=== PATIENT | female | born 1935 | race Caucasian/White ===

== ENCOUNTER 2020-02-29 18:56 | Inpatient (IN) | payer MEDICARE ==
[~2020-02-29] VITALS: Ht 160 cm; Wt 62.7 kg
[2020-02-29] MEDS ORDERED: MORPHINE 4 MG/ML 1ML VIAL/SYRINGE (J2270) IV ONE ×2 (19:30→20:45)
[2020-02-29] MEDS ORDERED: ONDANSETRON 4MG/2ML VIAL IV ONE ×2 (19:30→22:15)
[2020-02-29 19:39] LABS: BASO % 0.2 % (0.0-1.0); HEMOGLOBIN 15.3 g/dl (12.0-15.5); LYMPH # 0.8 10^3/uL (1.5-5.0); LYMPH % 5.4 % (24.0-44.0); MEAN CORPUSCULAR HEMOGLOBIN 29.7 pg (27.0-33.0); MEAN CORPUSCULAR HGB CONC 33.3 g/dl (32.0-36.5); MEAN CORPUSCULAR VOLUME 89.1 fl (80.0-96.0); MONO % 6.6 % (0.0-5.0); NEUTROPHILS # 12.8 10^3/uL (1.5-8.5); NEUTROPHILS % 87.5 % (36.0-66.0); PLATELET COUNT, AUTOMATED 419 10^3/uL (150-450); RED BLOOD COUNT 5.16 10^6/uL (4.00-5.40); WHITE BLOOD COUNT 14.7 10^3/uL (4.0-10.0)
[2020-02-29] MEDS ORDERED: LISI10TA4 PO (19:42)
[2020-02-29] MEDS ORDERED: ATOR1TAB19 PO (19:42)
[2020-02-29] MEDS: NS 1,000 ML IV SCH ×2 (19:48→23:22)
[2020-02-29] MEDS: GASTROGRAFIN SOLUTION 30ML PO SCH ×2 (20:00→20:31)
[2020-02-29 20:06] LABS: ALT/SGPT 22 U/L (12-78); BILIRUBIN,DIRECT 0.2 MG/DL (0.0-0.2); BILIRUBIN,TOTAL 0.6 MG/DL (0.2-1.0); BLOOD UREA NITROGEN 31 MG/DL (7-18); CALCIUM LEVEL 9.5 MG/DL (8.8-10.2); CARBON DIOXIDE LEVEL 27 MEQ/L (21-32); CHLORIDE LEVEL 99 MEQ/L (98-107); CREATININE FOR GFR 0.93 MG/DL (0.55-1.30); GLOMERULAR FILTRATION RATE > 60.0 (>32); GLUCOSE, FASTING 209 MG/DL (70-100); LIPASE 60 U/L (73-393); POTASSIUM SERUM 4.1 MEQ/L (3.5-5.1); SODIUM LEVEL 138 MEQ/L (136-145); TOTAL PROTEIN 7.6 GM/DL (6.4-8.2)
[2020-02-29] MEDS ORDERED: ISOVUE-370 76% 100ML VIAL As Ordered ONE (21:25)
--- NOTE | 2020-02-29 21:55 | REPVR ---
PROCEDURE INFORMATION: Exam: CT Abdomen And Pelvis With Contrast Exam date and time: 02/29/2020 9:28 PM Age: 84 years old Clinical indication: Abdominal pain; Additional info: Gen abd pain, vomiting TECHNIQUE: Imaging protocol: Computed tomography of the abdomen and pelvis with intravenous contrast. Radiation optimization: All CT scans at this facility use at least one of these dose optimization techniques: automated exposure control; mA and/or kV adjustment per patient size (includes targeted exams where dose is matched to clinical indication); or iterative reconstruction. Contrast material: ISO 370; Contrast volume: 100 ml; Contrast route: IV; COMPARISON: No relevant prior studies available. FINDINGS: Lungs: Bronchiectasis is present at the anterior right lung base. No evidence of pneumonia. Noncalcified 3 mm right lower lobe lung nodule on axial image 15. Atelectasis at the left lung base. Liver: Liver appears normal with no focal abnormality. Gallbladder and bile ducts: Gallbladder is present and shows no evidence of gallstone. Pancreas: Complex lobular solid mass in the left upper quadrant which may be associated with the pancreatic tail. This measures 12 x 9 x 12 cm and contains punctate calcifications. It displaces the stomach anteriorly but does not appear to arise from the stomach. Spleen: Spleen appears homogeneous without focal mass. Adrenals: Adrenal glands are normal in appearance. Kidneys and ureters: Kidneys appear normal, with no stone, solid mass or hydronephrosis. Stomach and bowel: Dilated right lower quadrant small bowel loops are present measuring up to 3.5 cm and there is circumferential mural edema involving the distal small bowel in the right mid abdomen. No identifiable bowel mass. Small volume of adjacent fluid. No evidence of acute diverticulitis. Appendix: Appendix is not seen. No RLQ inflammation to suggest appendicitis. Intraperitoneal space: No free air. Vasculature: . No abdominal aortic aneurysm. Bladder: Urinary bladder appears normal. Bones/joints: Subacute right obturator ring fractures and multilevel lumbar spine degenerative changes are present. No lytic or blastic osseous lesion. IMPRESSION: 1. Large left upper quadrant complex solid mass measuring 12 x 9 by 12 cm. This could be a mesenteric mass or could arise from the pancreatic tail. Abdominal and pelvic free fluid could be malignant ascites. 2. Inflammatory or infectious process involving right lower quadrant small bowel with low-grade partial obstruction. No obstructing mass. 3. 3 mm nodule, lateral right lung base. Fleischner society recommendations for followup and management of nodules smaller than 8 mm detected incidentally on screening CT: Less than or equal to 4 mm: Low risk patients- no followup needed. High risk patients- followup in 12 months. If no change, no further imaging needed. Electronically signed by: Tyrone Brewer On 02/29/2020 21:55:21 PM
[2020-02-29] MEDS ORDERED: ATOR1TAB21 PO (23:57)
[2020-02-29] MEDS ORDERED: OXYC-517 PO (23:57)
[2020-02-29] MEDS ORDERED: NITR50CA34 PO (23:57)
[2020-02-29] MEDS ORDERED: LISI-538 PO (23:57)
[2020-02-29] MEDS ORDERED: JANU50TA8 PO (23:57)
[2020-02-29] MEDS ORDERED: TORS10TA3 PO (23:57)
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
[2020-03-01] MEDS ORDERED: GLUCOSE 4GM CHEW TABLET PO PRN (01:00)
[2020-03-01] MEDS ORDERED: DEXTROSE 50% 50 ML SYRINGE IV PRN (01:00)
[2020-03-01] MEDS ORDERED: GLUCAGON INJ 1MG VIAL SC PRN (01:00)
[2020-03-01] MEDS: HumaLOG INSULIN (NovoLOG) PER UNIT SC SCH ×4 (01:10→17:42)
[2020-03-01] MEDS: oxyCODONE 5MG TAB PO PRN (02:02)
[2020-03-01 02:30] VITALS: BP 164/99
[2020-03-01 06:00] VITALS: BP 160/97
[2020-03-01 06:01] LABS: HEMATOCRIT 48.3 % (36.0-47.0); MEAN CORPUSCULAR HGB CONC 33.1 g/dl (32.0-36.5); MEAN CORPUSCULAR VOLUME 90.6 fl (80.0-96.0); PLATELET COUNT, AUTOMATED 401 10^3/uL (150-450); RED BLOOD COUNT 5.33 10^6/uL (4.00-5.40); WHITE BLOOD COUNT 18.8 10^3/uL (4.0-10.0)
[2020-03-01 06:30] LABS: BLOOD UREA NITROGEN 28 MG/DL (7-18); CALCIUM LEVEL 8.1 MG/DL (8.8-10.2); CARBON DIOXIDE LEVEL 22 MEQ/L (21-32); CHLORIDE LEVEL 106 MEQ/L (98-107); CREATININE FOR GFR 0.71 MG/DL (0.55-1.30); GLOMERULAR FILTRATION RATE > 60.0 (>32); GLUCOSE, FASTING 155 MG/DL (70-100); POTASSIUM SERUM 4.2 MEQ/L (3.5-5.1); SODIUM LEVEL 140 MEQ/L (136-145)
[2020-03-01] MEDS ORDERED: MORPHINE 10 MG/ML 1ML VIAL (J2270) IV PRN (06:30)
[2020-03-01] MEDS: ONDANSETRON 4MG/2ML VIAL IV PRN ×2 (06:43→17:48)
[2020-03-01] MEDS: MORPHINE 2 MG/ML 1ML VIAL (J2270) IV PRN ×4 (06:44→21:50)
[2020-03-01] MEDS ORDERED: ATORVASTATIN 20 MG TAB PO SCH (09:00)
[2020-03-01 09:36] VITALS: BP 155/96
[2020-03-01] MEDS: lisinopriL 20 MG TAB PO SCH (09:38)
[2020-03-01] MEDS: ENOXAPARIN 40MG/0.4ML SYRINGE (J1650 PER 10MG) SC SCH (10:55)
[2020-03-01] MEDS ORDERED: PROHANCE 279.3MG/ML 5ML VIAL As Ordered ONE (14:10)
[2020-03-01] MEDS ORDERED: CEPACOL LOZENGE PO PRN (16:30)
[2020-03-01] MEDS: NS 1,000 ML IV SCH ×2 (16:33→20:02)
[2020-03-01] MEDS: CHLORASEPTIC SPRAY MT PRN (17:52)
[2020-03-01] MEDS: CIPROFLOXACIN 400 MG in IV 1 EA IV SCH (20:02)
[2020-03-01] MEDS ORDERED: PILL CUTTER 1 EACH XX PRN (20:15)
[2020-03-01] MEDS: ATORVASTATIN 20 MG TAB PO SCH (21:00)
[2020-03-01] MEDS: SIMETHICONE 80 MG CHEW TAB PO SCH (21:44)
[2020-03-01] MEDS: metroNIDAZOLE 500 MG in IV 1 EA IV SCH (21:45)
[2020-03-02] VITALS (7 sets, daily range): BP systolic 112–120; BP diastolic 63–76
--- NOTE | 2020-03-02 00:31 | REP ---
MRI PANCREAS WITH AND WITHOUT CONTRAST: COMPARISON: CT 02/29/2020. Multiple sequences obtained in the axial and coronal planes prior to and following the intravenous administration of 10 mL ProHance. A large mass is seen in the body and tail of the pancreas. It measures approximately 11.5 x 11.7 x 12.3 cm. There were scattered small calcifications on the CT scan. There are small cystic areas diffusely throughout the mass as well as enhancing solid components. Borders are somewhat lobulated. It compresses the splenic vein. Splenic artery also appears compressed. In the region of the pancreatic head, the pancreatic duct is not dilated. No pancreatic head mass is seen. The visualized liver is unremarkable. There is no dilatation of the common bile duct. Spleen and adrenals are unremarkable. The kidneys are unremarkable. No periaortic adenopathy is seen. There is mild diffuse free fluid in the abdomen. There are thickened small bowel loops in the right mid and lower abdomen, as seen on the CT scan. IMPRESSION: Large cystic and solid mass in the body and tail of the pancreas. There are enhancing solid components. There are scattered tiny calcifications in the mass. Differential diagnosis would include carcinoma or possibly solid pseudopapillary tumor. Mild diffuse free fluid. Thickened small bowel loops right abdomen. Electronically Signed by Tong Alberts MD 03/02/2020 01:30 P
[2020-03-02] MEDS: NS 1,000 ML IV SCH ×3 (05:49→16:53)
[2020-03-02] MEDS: metroNIDAZOLE 500 MG in IV 1 EA IV SCH ×3 (05:49→22:10)
[2020-03-02] MEDS: HumaLOG INSULIN (NovoLOG) PER UNIT SC SCH ×4 (05:57→17:48)
[2020-03-02] MEDS: ONDANSETRON 4MG/2ML VIAL IV PRN ×3 (05:58→21:29)
[2020-03-02] MEDS: MORPHINE 2 MG/ML 1ML VIAL (J2270) IV PRN ×6 (05:58→23:31)
[2020-03-02 06:01] LABS: HEMATOCRIT 39.9 % (36.0-47.0); MEAN CORPUSCULAR HEMOGLOBIN 30.2 pg (27.0-33.0); MEAN CORPUSCULAR HGB CONC 33.3 g/dl (32.0-36.5); MEAN CORPUSCULAR VOLUME 90.7 fl (80.0-96.0); PLATELET COUNT, AUTOMATED 350 10^3/uL (150-450); WHITE BLOOD COUNT 13.9 10^3/uL (4.0-10.0)
[2020-03-02 06:08] LABS: HEMOGLOBIN 13.3 g/dl (12.0-15.5)
[2020-03-02 06:31] LABS: ALBUMIN 2.5 GM/DL (3.2-5.2); ALT/SGPT 12 U/L (12-78); BILIRUBIN,TOTAL 0.7 MG/DL (0.2-1.0); BLOOD UREA NITROGEN 38 MG/DL (7-18); CARBON DIOXIDE LEVEL 20 MEQ/L (21-32); CHLORIDE LEVEL 106 MEQ/L (98-107); CREATININE FOR GFR 0.69 MG/DL (0.55-1.30); GLOMERULAR FILTRATION RATE > 60.0 (>32); GLUCOSE, FASTING 152 MG/DL (70-100); MAGNESIUM LEVEL 1.5 MG/DL (1.8-2.4); POTASSIUM SERUM 4.2 MEQ/L (3.5-5.1); SODIUM LEVEL 136 MEQ/L (136-145); TOTAL PROTEIN 4.8 GM/DL (6.4-8.2)
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
--- NOTE | 2020-03-02 08:30 | REP ---
REASON: Recent nasogastric tube placement. There are no priors for comparison. A curvilinear radial density seen coursing the esophagus, the tip is beneath the diaphragmatic surface of the left lung in the stomach fundal region. The right CP angle is blunted with subtle right basilar opacities. The lung ferreira are otherwise clear. Left CP angle is sharp. The heart is not enlarged. The osseous structures are within normal limits. IMPRESSION: 1. Nasogastric tube as described above. 2. Mild right basilar opacities with a possible small right pleural effusion. Followup is recommended. Electronically Signed by Joseph Damian DO 03/02/2020 10:51 A
[2020-03-02] MEDS: SIMETHICONE 80 MG CHEW TAB PO SCH ×2 (08:55→11:56)
[2020-03-02] MEDS: CIPROFLOXACIN 400 MG in IV 1 EA IV SCH ×2 (08:55→20:22)
[2020-03-02] MEDS: oxyCODONE 5MG TAB PO PRN (08:56)
[2020-03-02] MEDS: lisinopriL 20 MG TAB PO SCH (08:59)
[2020-03-02] MEDS: ENOXAPARIN 40MG/0.4ML SYRINGE (J1650 PER 10MG) SC SCH ×2 (09:00→09:01)
--- NOTE | 2020-03-02 09:37 | REP ---
ABDOMINAL SERIES: Supine erect views of the abdomen demonstrate no free air. Moderately dilated small bowel loops are again seen. There are degenerative changes of the spine. An accompanying view of the chest demonstrates mild patchy atelectasis or infiltrate in each lung base. Nasogastric tube is seen with sideport in the stomach. Electronically Signed by Tong Alberts MD 03/07/2020 05:47 P
--- NOTE | 2020-03-02 11:18 | IPN ---
DATE: 03/02/2020 Patient overall has had a rough night and still had some crampy abdominal pain. Her white count has dropped a little bit this morning, but unfortunately she still distended and she is still having the crampy abdominal pain. Her x-ray does not look improved and a matter of fact, I do feel that there is a pinch point in the right lower quadrant. On her physical exam, she is more distended today. She is more uncomfortable and more tender to palpation, although it is not diffuse peritoneal signs but it is definitely more uncomfortable given her distension. IMPRESSION/PLAN: Patient has un-resolving small bowel obstruction. We will plan on operative intervention with a laparotomy with probable lysis of adhesions, possible small bowel resection. I have discussed multiple operative options with her for operative intervention today concerning this issue. The second issue was that we did receive some paperwork from [facility] concerning her last admission and specifically, when we review the size of the pancreatic abnormality it was 11 x 9 cm and thus, showing that this is indeed increasing in size but slowly over time. 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 However, we will get the hepatobiliary specialist involved in her care after the small bowel obstruction issue has been addressed.
[2020-03-02] MEDS ORDERED: GLUCAGON INJ 1MG VIAL As Ordered ONE (13:06)
[2020-03-02] MEDS ORDERED: dexameTHASONE 4 MG/ML 1ML VIAL (J1100 PER 1MG) As Ordered ONE (13:21)
[2020-03-02] MEDS ORDERED: ETOMIDATE INJ 20MG/10ML VIAL As Ordered ONE (13:21)
[2020-03-02] MEDS ORDERED: SUCCINYLCHOLINE 100 MG/5 ML SYRINGE (J0330) As Ordered ONE (13:21)
[2020-03-02] MEDS ORDERED: fentaNYL 250 MCG/5 ML INJECTION (J3010) As Ordered ONE (13:21)
[2020-03-02] MEDS ORDERED: LIDOCAINE 2% 100MG/5ML SDV (FOR ANES.) As Ordered ONE (13:21)
[2020-03-02] MEDS ORDERED: SUGAMMADEX SODIUM 500 MG/5 ML VIAL (BRIDION) As Ordered ONE ×2 (13:21→14:42)
[2020-03-02] MEDS ORDERED: MIDAZOLAM INJ 2MG/2ML VIAL (J2250 PER 1MG) As Ordered ONE (13:21)
[2020-03-02] MEDS ORDERED: ONDANSETRON 4MG/2ML VIAL As Ordered ONE (13:21)
[2020-03-02] MEDS ORDERED: propofoL 200 MG/20 ML VIAL As Ordered ONE (13:21)
[2020-03-02] MEDS ORDERED: BUPIVACAINE HCL 0.25% 10ML VIAL As Ordered ONE (13:56)
[2020-03-02] MEDS ORDERED: BUPIVACAINE LIPOSOME/PF 1.3% 20ML VIAL (13.3MG/ML)(EXPAREL)(C9290 PER1MG) As Ordered ONE (13:56)
[2020-03-02] MEDS ORDERED: MAG SULF 1GM/100ML (MAG RUN) 1 GM in IV 1 EA IV ONE (14:00)
[2020-03-02] MEDS ORDERED: ROCURONIUM BROMIDE 50 MG/5 ML VIAL As Ordered ONE ×2 (14:19→14:20)
[2020-03-02] MEDS ORDERED: ACETAMINOPHEN 1000MG 100ML IV BTL (OFIRMEV) (J0131 PER 10MG) As Ordered ONE (14:22)
[2020-03-02] MEDS ORDERED: HYDROmorphone HCL 2 MG/ML 1ML VIAL (J1170) As Ordered ONE (14:28)
[2020-03-02] MEDS ORDERED: KETOROLAC 60MG 2ML VIAL As Ordered ONE (14:54)
[2020-03-02] MEDS ORDERED: HYDROMORPHONE HCL 0.5 MG/ 0.5 ML SYRINGE (J1170 PER 1) As Ordered ONE (15:26)
[2020-03-02] MEDS ORDERED: ONDANSETRON 4MG/2ML VIAL IV PRN (15:30)
[2020-03-02] MEDS ORDERED: LR 1,000 ML IV SCH (15:30)
[2020-03-02] MEDS ORDERED: oxyCODONE 5MG TAB PO PRN (15:30)
[2020-03-02] MEDS: HYDROMORPHONE HCL 0.5 MG/ 0.5 ML SYRINGE (J1170 PER 1) IV PRN ×2 (15:31→15:36)
--- NOTE | 2020-03-02 15:31 | RO ---
DATE OF PROCEDURE: 03/01/2020 PREOPERATIVE DIAGNOSIS: Small bowel obstruction. POSTOPERATIVE DIAGNOSIS: Small bowel obstruction with internal hernia. PROCEDURE: Ileocolectomy. SURGEON: Jay Jay Martinez MD TORQUE TESTER: ANESTHESIA: General endotracheal anesthesia. ESTIMATED BLOOD LOSS (EBL): 50 mL. FLUIDS: Crystalloid. BRIEF PROCEDURE SUMMARY: The patient was brought to the operating room, was given general anesthesia. After adequate anesthesia and preoperative antibiotics were given the patient was prepped and draped in the usual sterile fashion. A midline incision inferior to the umbilicus was performed with a skin knife. Electrocautery was used cut through the skin and subcutaneous tissue down to the fascia and fascia was entered sharply. Peritoneum was entered and dilated. Small bowel was appreciated. I could feel where the bowel was then quite hemorrhagic looking at least venous congested and at the base of this was an adhesion that was strung across the small bowel and the terminal ileum right at the level of the ileocecal valve. Once I cut this adhesion the bowel did start to parts picker , but still was quite venous congested. I did not feel that this was viable or at least I had concerns with its appearance that there was at least mucosal ischemia. Thus, the small bowel was resected about a foot of the distal small bowel and I transected right at the level of the cecum where the ileocecal valve was with IRMA staplers and the mesentery was taken with [place] vascular load. Opening up a small enterotomy in both sites an anastomosis was created with a [id number]. The mucosa was mostly stool stained on the cecal side and on the right side there was still some darker fluid. However, after the anastomosis there was definite mucosal ischemia and when I suctioned the turbid fluid there was some significant oozing from this area of mucosal re-profusion. I felt that this was at a higher risk of either having potential stricture, stenosis or bleeding post-op. Thus, I re-resected that small bowel back approximately another 3-4 inches and came back to normal but edematous bowel. The cecum then was resected and a [id number] anastomosis with the small bowel to the ascending colon was performed with a IRMA stapler. The enterotomy site was resected using an [place] 60 green load. The bowel mucosa looked nice and viable in this area. The abdomen was copiously irrigated until clear. The midline was closed with a running looped #0 PDS and nikkie were used to approximate the skin. Exparel was injected bilaterally on the rectus muscle area and fascia, and a dry sterile dressing was applied. The patient was awakened, extubated, brought to recovery room awake, alert and hemodynamic stable. Sponge and needle counts correct times two.
[2020-03-02] MEDS ORDERED: fentaNYL 100 MCG/2 ML INJECTION (J3010) As Ordered ONE (15:43)
[2020-03-02] MEDS: fentaNYL 100 MCG/2 ML INJECTION (J3010) IV PRN ×2 (15:47→16:10)
--- NOTE | 2020-03-02 16:52 | IPN ---
DATE: 03/02/2020 Patient continues to complain of increasing abdominal distention, intractable nausea despite antiemetic and nasogastric tube. Patient is passing minimal amount of gas. Overnight patient complained of increasing pain. PHYSICAL EXAMINATION: Temperature 98.4, pulse 99, respiratory rate 14, blood pressure 120/71, 97% on room air. GENERAL: Awake, alert, oriented to person and place. Speaking appropriate. Nasogastric tube intact. No jugular venous distention (JVD) or thyromegaly. LUNGS: Clear to auscultation. HEART: S1, S2, sinus rhythm. ABDOMEN: Much more distended, tender, and with hypoactive bowel sounds. Nasogastric tube in place. EXTREMITIES: No cyanosis or clubbing. LABORATORY DATA: White count 13.9, hemoglobin 13, hematocrit 13, and platelet count 350. Sodium 136, potassium 4.2, chloride 106, bicarbonate 20, BUN 38, creatinine 0.69, glucose 152. ASSESSMENT AND PLAN: This is an 84-year-old female admitted on 03/01/2020 with complaints of abdominal pain, distention, nausea, and vomiting, felt to have partial small-bowel obstruction. Patient had a history of a large abdominal mass, previously biopsied, and was thought to be benign. CURRENT ISSUES: 1. Small-bowel obstruction, persistent. Patient is still passing flatus but no responding to conservative management with nothing by mouth status, intravenous (IV) fluids, and nasogastric tube suctioning. General surgeon, Dr. Martinez, will bring her to the operating room (OR) for exploratory laparotomy and lysis of adhesions. Patient is currently on Cipro and Flagyl, which was started yesterday by general surgery. 2. 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 Patient will need a hepatobiliary specialist, according to recommendations from her general surgeon, Dr. Martinez, after small-bowel obstruction has been addressed. 3. Type 2 diabetes, currently nothing by mouth status. On IV fluids, hypoglycemic protocol, and fingersticks every 6 hours. 4. Hypertension. Blood pressure is normal, 119-120. Currently on lisinopril 20 daily. Will need to monitor postoperatively. 5. Hypomagnesemia, repleted. MTDD
[2020-03-02] MEDS: ATORVASTATIN 20 MG TAB PO SCH (20:22)
[2020-03-02] MEDS: ALVIMOPAN 12 MG CAPSULE (ENTEREG) PO SCH (20:22)
[2020-03-03 02:08] VITALS: BP 116/62
[2020-03-03] MEDS: NS 1,000 ML IV SCH ×4 (02:52→17:35)
[2020-03-03] MEDS: MORPHINE 2 MG/ML 1ML VIAL (J2270) IV PRN ×5 (02:53→12:41)
[2020-03-03 05:15] VITALS: BP 123/66
[2020-03-03] MEDS: metroNIDAZOLE 500 MG in IV 1 EA IV SCH ×3 (05:31→22:33)
[2020-03-03] MEDS: HumaLOG INSULIN (NovoLOG) PER UNIT SC SCH ×4 (05:32→17:27)
[2020-03-03 08:06] LABS: HEMATOCRIT 33.2 % (36.0-47.0); MEAN CORPUSCULAR HEMOGLOBIN 30.5 pg (27.0-33.0); MEAN CORPUSCULAR HGB CONC 33.7 g/dl (32.0-36.5); MEAN CORPUSCULAR VOLUME 90.5 fl (80.0-96.0); PLATELET COUNT, AUTOMATED 245 10^3/uL (150-450); RED BLOOD COUNT 3.67 10^6/uL (4.00-5.40); WHITE BLOOD COUNT 9.1 10^3/uL (4.0-10.0)
[2020-03-03 08:22] LABS: HEMOGLOBIN 11.2 g/dl (12.0-15.5)
[2020-03-03] MEDS: CIPROFLOXACIN 400 MG in IV 1 EA IV SCH ×2 (08:26→20:05)
[2020-03-03] MEDS: lisinopriL 20 MG TAB PO SCH (08:29)
[2020-03-03] MEDS: ALVIMOPAN 12 MG CAPSULE (ENTEREG) PO SCH ×2 (08:29→21:00)
[2020-03-03 08:32] LABS: BLOOD UREA NITROGEN 22 MG/DL (7-18); CALCIUM LEVEL 7.6 MG/DL (8.8-10.2); CARBON DIOXIDE LEVEL 22 MEQ/L (21-32); CHLORIDE LEVEL 111 MEQ/L (98-107); CREATININE FOR GFR 0.53 MG/DL (0.55-1.30); GLOMERULAR FILTRATION RATE > 60.0 (>32); GLUCOSE, FASTING 134 MG/DL (70-100); POTASSIUM SERUM 3.7 MEQ/L (3.5-5.1); SODIUM LEVEL 140 MEQ/L (136-145)
[2020-03-03] MEDS: CHLORASEPTIC SPRAY MT PRN ×3 (10:29→17:35)
[2020-03-03] MEDS ORDERED: ACETAMINOPHEN 325 MG/10.15 ML UDC NG PRN (11:30)
--- NOTE | 2020-03-03 11:51 | IPN ---
DATE: 03/03/2020 The patient is postop day #1 from a small ileocolectomy for bowel obstruction. The patient states that she is still uncomfortable with her incisions, but she is not having crampy abdominal pain that she was having previously. She does not feel as distended or full as she did previously. She had a little bit of nausea but not as severe as prior to operative intervention. Her nasogastric (NG) tube has been putting out less fluid and it is just clear. Her abdomen is soft, mildly tender xi-incisionally. No peritoneal signs are appreciated. Her white count is normal this morning at 9.1. IMPRESSION/PLAN: 1. Gastrointestinal (GI): The patient still has some mild dilatation of her abdomen and I anticipate that she has a mild ileus associated with her operative intervention as typical in this with a significant portion of a small bowel resection. Thus, I would recommend keeping her nothing by mouth until she has flatus or bowel movements, then she can have the NG tube removed and then progress her on to a clear liquid diet. 2. Pain control. I have encouraged the patient to use the pain medication more than she has been. She states that she is using it every 6-8 hours and she has it available for much more often than that. If she needs a patient controlled analgesia (TEAR DOWN WORKER) we can obviously order that for her, but encouraging her to use a little bit more, more often may be just be adequate for her. Otherwise, her urine output looks good. Her blood urea nitrogen (BUN) is coming down a little bit. We will continue with supportive care at this time.
[2020-03-03 14:00] VITALS: BP 134/71
--- NOTE | 2020-03-03 16:12 | ECGEPIP ---
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
[2020-03-03] MEDS: ONDANSETRON 4MG/2ML VIAL IV PRN (17:35)
--- NOTE | 2020-03-03 17:37 | IPN ---
DATE: 03/03/2020 Patient said that she woke up from sleep and was very disoriented today. Did not know where she was, which scared her. She complains of not feeling well. Nasogastric tube still in place with 200 mL through the drain. Patient underwent ileocolectomy on due to nonresolving small-bowel obstruction. Still with nikkie in place. Incision site appears clean, dry, without any drainage. Patient has complaint of about 10/10 pain at the moment, currently being given morphine. Per nursing, had already received 8 mg of intravenous morphine all day today. Patient remains afebrile without any chills. She feels nauseous but has not vomited. Nasogastric (NG) tube still in place. Temperature 98.3 pulse 99, respiratory rate 19, blood pressure 134/71, 95% on room air. GENERAL: Patient is not in any respiratory distress. No cyanosis. No clubbing. Nasogastric in place. Midline abdominal incision is clean with dressing. Peters catheter is dark in color, concentrated. LUNGS: Diminished with fine crackles. HEART: S1, S2, irregularly irregular. EXTREMITIES: No cyanosis or clubbing. LABORATORY DATA: White count 9.1, hemoglobin 11, hematocrit 33, platelet count 245. Sodium 140, potassium 3.7, chloride 111, bicarbonate 22, BUN 22, creatinine 0.53, glucose 134. IMAGING STUDY: Abdominal film March 02: Mild patchy atelectasis in the chest or infiltrate in each lung. Nasogastric tube with side port in the stomach. ASSESSMENT AND PLAN: This is an 84-year-old female, admitted on 03/01/2020 with complaints of abdominal pain, nausea, vomiting, and abdominal distention. CT abdomen showed partial small-bowel obstruction, evaluated by Dr. Martinez, and was started on intravenous (IV) Cipro and Flagyl with improvement in white count. Patient underwent ileocolectomy on 03/01/2020 but has not passed a bowel movement yet this morning. She is currently on alvimopan. Nasogastric tube remains in place due to persistent complaints of nausea. CURRENT ISSUES: 1. Small-bowel obstruction status post ileocolectomy. Postoperative management per general surgery. Currently on IV Cipro with normal white count. Still requiring NG tube, since the patient has not had any bowel movement yet. IV morphine has been given with subsequent acute delirium per patient. Zofran as needed for nausea. Still on intravenous fluids. 2. Type 2 diabetes, on hypoglycemic protocol, sliding scale every 6 hours. 3. Hypertension. Vital signs are stable with systolic pressure of 134. 4. new onset aflutter w rvr. not passing flatus. still w ng tube to lis. iv metoprolol q6hrs . echo. lovenox for now, but switch to eliquis renal dosing once oral intake is resumed. transfer to pcu. tele. ekg. MTDD
--- NOTE | 2020-03-03 18:31 | IPNPDOC ---
Date Seen The patient was seen on 03/03/20. Progress Note new onset aflutter w rvr: transfer to pcu tele for iv metoprolol. due to npo status, ng tube suctioning, unable to give po meds. VS, I&O, 24H, Fishbone Vital Signs/I&O Vital Signs Date Time Temp Pulse Resp B/P (MAP) Pulse Ox O2 Delivery O2 Flow Rate FiO2 03/03/20 14:00 98.3 99 19 134/71 (92) 95 Room Air 03/02/20 21:23 2.0 03/02/20 15:06 100 I&O- Last 24 Hours up to 6 AM 03/03/20 06:00 Intake Total 1900 ml Output Total 675 ml Balance 1225 ml Laboratory Data 24H LABS Laboratory Tests 2 03/02/20 19:38: Bedside Glucose (Misc Panel) 156H 03/02/20 23:54: Bedside Glucose (Misc Panel) 169H 03/03/20 05:19: Bedside Glucose (Misc Panel) 162H 03/03/20 07:52: Nucleated Red Blood Cells % (auto) 0.0, Anion Gap 7L, Glomerular Filtration Rate > 60.0, Calcium Level 7.6L 03/03/20 11:25: Bedside Glucose (Misc Panel) 143H 03/03/20 17:23: Bedside Glucose (Misc Panel) 118H CBC/BMP Laboratory Tests 03/03/20 07:52 JING MICHELLE MD Mar 03, 2020 18:31
[2020-03-03] MEDS ORDERED: ENOXAPARIN 40MG/0.4ML SYRINGE (J1650 PER 10MG) SC SCH (18:45)
[2020-03-03 19:19] VITALS: BP 148/73
[2020-03-03] MEDS ORDERED: ACETAMINOPHEN *IV* 650 MG in IV 1 EA IV ONE (20:00)
[2020-03-03] MEDS: METOPROLOL 5 MG/5 ML VIAL IV SCH (20:06)
[2020-03-03] MEDS: ENOXAPARIN 60MG/0.6ML SYRINGE (J1650 PER 10MG) SC SCH (21:49)
[2020-03-04] VITALS: BP 146/71
[2020-03-04] MEDS: METOPROLOL 5 MG/5 ML VIAL IV SCH (03:23)
[2020-03-04 04:00] VITALS: BP 156/71
[2020-03-04] MEDS: metroNIDAZOLE 500 MG in IV 1 EA IV SCH ×3 (04:06→21:00)
[2020-03-04] MEDS: HumaLOG INSULIN (NovoLOG) PER UNIT SC SCH ×4 (05:54→18:06)
[2020-03-04] MEDS: NS 1,000 ML IV SCH ×2 (06:37→07:34)
[2020-03-04] MEDS ORDERED: METOPROLOL 5 MG/5 ML VIAL IV PRN (07:30)
[2020-03-04] MEDS: ACETAMINOPHEN 325 MG/10.15 ML UDC GT PRN ×2 (07:33→18:07)
[2020-03-04 07:45] LABS: BASO % 0.1 % (0.0-1.0); HEMATOCRIT 38.9 % (36.0-47.0); HEMOGLOBIN 12.7 g/dl (12.0-15.5); LYMPH # 0.4 10^3/uL (1.5-5.0); MEAN CORPUSCULAR HEMOGLOBIN 29.7 pg (27.0-33.0); MEAN CORPUSCULAR HGB CONC 32.6 g/dl (32.0-36.5); MEAN CORPUSCULAR VOLUME 91.1 fl (80.0-96.0); MONO # 0.9 10^3/uL (0.0-0.8); MONO % 6.9 % (0.0-5.0); NEUTROPHILS # 11.4 10^3/uL (1.5-8.5); NEUTROPHILS % 89.3 % (36.0-66.0); PLATELET COUNT, AUTOMATED 290 10^3/uL (150-450); RED BLOOD COUNT 4.27 10^6/uL (4.00-5.40); WHITE BLOOD COUNT 12.8 10^3/uL (4.0-10.0)
[2020-03-04 08:00] VITALS: BP 164/78
[2020-03-04 08:20] LABS: ALBUMIN 1.9 GM/DL (3.2-5.2); ALT/SGPT 15 U/L (12-78); BILIRUBIN,TOTAL 0.4 MG/DL (0.2-1.0); BLOOD UREA NITROGEN 18 MG/DL (7-18); CALCIUM LEVEL 8.3 MG/DL (8.8-10.2); CARBON DIOXIDE LEVEL 20 MEQ/L (21-32); CHLORIDE LEVEL 110 MEQ/L (98-107); CHOLESTEROL LEVEL 87 MG/DL (<200); CK-MB VALUE MASS 2.3 NG/ML (<3.6); CPK CREATINE PHOSPHOKINASE 44 U/L (26-192); CREATININE FOR GFR 0.36 MG/DL (0.55-1.30); FREE THYROXINE INDEX 4.2 % (1.3-4.8); GLOMERULAR FILTRATION RATE > 60.0 (>32); GLUCOSE, FASTING 147 MG/DL (70-100); HDL CHOLESTEROL 50 MG/DL (>40); LDL CHOLESTEROL 28 MG/DL (<100); MAGNESIUM LEVEL 1.5 MG/DL (1.8-2.4); MB/CK RELATIVE INDEX 5.23 (< OR =4); NON-HDL-C 37 MG/DL; NT-PRO BNP 3587 PG/ML (<450); POTASSIUM SERUM 3.8 MEQ/L (3.5-5.1); SODIUM LEVEL 140 MEQ/L (136-145); T UPTAKE 40 % (30-39); THYROID STIMULATING HORMONE 0.238 uIU/ML (0.358-3.740); THYROXINE (T4) 10.4 UG/DL (4.5-12.0); TOTAL PROTEIN 4.3 GM/DL (6.4-8.2); TRIGLYCERIDES LEVEL 46 MG/DL (<150); TROPONIN I < 0.02 NG/ML (< 0.10)
[2020-03-04] MEDS: lisinopriL 20 MG TAB PO SCH (08:40)
[2020-03-04] MEDS: ALVIMOPAN 12 MG CAPSULE (ENTEREG) PO SCH ×2 (08:41→21:00)
[2020-03-04] MEDS: CIPROFLOXACIN 400 MG in IV 1 EA IV SCH ×2 (08:41→20:58)
[2020-03-04] MEDS: atenoloL 25 MG TAB PO SCH (08:41)
[2020-03-04] MEDS: ENOXAPARIN 60MG/0.6ML SYRINGE (J1650 PER 10MG) SC SCH ×2 (08:43→20:59)
[2020-03-04] MEDS: ONDANSETRON 4MG/2ML VIAL IV PRN (09:36)
[2020-03-04] MEDS: FUROSEMIDE 40MG/4ML VIAL (J1940) IV SCH ×2 (10:10→18:06)
[2020-03-04] MEDS ORDERED: SLF 3 ML SYR IV PRN (10:30)
--- NOTE | 2020-03-04 11:34 | IPN ---
DATE OF SERVICE: 03/04/2020 The patient remains with sinus tachycardia and premature atrial complexes overnight. She had been transferred to rule out atrial fibrillation and atrial flutter. Rate on 5 fagan was 160. The patient complains of persistent nausea, abdominal pain this morning, rated at 6/10, diffusely across the abdomen. She has not passed any flatus or had any bowel movement. Nasogastric tube still in place with drainage of 200 mL overnight. She complains of some shortness of breath, cough productive of white sputum. Chest x-ray has been still pending. Vital signs: Temperature 98.2, pulse 83, respiratory rate 16, blood pressure 164/78, 94% on room air. Generally, the patient distressed, feeling nauseous at bedside. No jugular venous distention (JVD), thyromegaly. Face is symmetric. Anicteric. No jaundice. No use of respiratory accessory muscles. Nasogastric tube in place. Lungs: Diminished breath sounds. Heart: S1, S2, irregular. Abdomen: Is soft, slightly tender. Surgical scar is dry. No pitting edema. LABORATORY DATA: White count 12.8, hemoglobin 12, hematocrit 38, platelet count 290. Sodium 140, potassium 3.9, chloride 110, bicarbonate 20, BUN 18, creatinine 0.36, glucose of 147, relative index 5.23, troponin less than 0.02, BNP of 3587. ASSESSMENT AND PLAN: This is an 84-year-old female, admitted on 03/01/2020 with abdominal pain, nausea, vomiting, abdominal distention. CT abdomen showed partial small-bowel obstruction. Started on intravenous (IV) Cipro and Flagyl and underwent ileocolectomy on 03/01/2020. Currently on alvimopan. Had sinus tachycardia with PACs. Transferred to telemetry for further monitoring to rule out other tachyarrhythmias, rule out atrial flutter, atrial fibrillation (AFib). CURRENT ISSUES: 1. Small-bowel obstruction, status post ileocolectomy. Currently still nauseous. Not passing flatus. No bowel movement. Nasogastric tube in place. 200 mL out overnight. Managed by surgery. Currently on IV Cipro. Normal white count. No fever. 2. Morphine-induced acute delirium. Morphine has been discontinued. The patient felt "loopy" and was disoriented to place yesterday. The patient is currently on liquid Tylenol via nasogastric tube. 3. Tachyarrythmia. Remains on telemetry. Awaiting confirmation of atrial fibrillation (AFib) or flutter. Currently PACs with sinus tachycardia. 4. Hypertension. Uncontrolled. The patient complains of shortness of breath. Will obtain a chest x-ray. 5. Fluid overload. Currently with crackles on examination. Remain positive balance with elevated brain natriuretic peptide (BNP). Await 2D echocardiogram 6. Type 2 diabetes. sliding scale hypoglycemic protocol. MTDD
--- NOTE | 2020-03-04 11:44 | REP ---
Single view chest and a single view abdomen: 03/04/2020. Indication: Dyspnea. Abdominal pain. Comparison: 03/02/2020. Findings: Bibasilar opacities are redemonstrated. Right pleural effusion is present. There is no pneumothorax. Nasogastric tube is present with the tip below the diaphragm. The cardiac silhouette is not enlarged. Dilated loops of small bowel are redemonstrated. No air-fluid levels are present. Multiple surgical clips are present. There is significant degeneration of the thoracolumbar spine. Impression: Right pleural effusion. Persistent opacities within the lung bases with pneumonia and atelectasis considered. Partial small bowel obstruction without air fluid levels. Electronically Signed by Franco Caban DO 03/04/2020 11:36 A
[2020-03-04 12:00] VITALS: BP 131/77
[2020-03-04] MEDS: SLF 3 ML SYR IV SCH ×2 (13:23→21:01)
[2020-03-04 16:00] VITALS: BP 135/72
[2020-03-04 20:00] VITALS: BP 137/65
--- NOTE | 2020-03-04 21:28 | IPNPDOC ---
Text Note Date of Service The patient was seen on 03/04/20. NOTE No acute events overnight. Denies nausea, or emesis. She still has some abd p ain. Minimal air movement, and weak cough. VSSAF NAD abd - soft, TTP appropriate, dressings c/d/i labs - below A) 84y/o female s/p SBR for partial SBO P)npo NGT to LIS IS ambulate await return of bowel function Jesus Lim DO VS,Marcin, I+O VS, Marcin, I+O Laboratory Tests 03/04/20 07:30 Vital Signs Date Time Temp Pulse Resp B/P (MAP) Pulse Ox O2 Delivery O2 Flow Rate FiO2 03/04/20 20:00 98.5 77 18 137/65 (89) 96 Room Air 03/02/20 21:23 2.0 03/02/20 15:06 100 I&O- Last 24 Hours up to 6 AM 03/04/20 06:00 Intake Total 3700 ml Output Total 1000 ml Balance 2700 ml REYNALDO LIM DO Mar 04, 2020 21:28
[2020-03-04] MEDS ORDERED: ACETAMINOPHEN *IV* 1,000 MG in IV 1 EA IV ONE (22:00)
[2020-03-05] MEDS: HumaLOG INSULIN (NovoLOG) PER UNIT SC SCH ×5 (00:14→23:57)
[2020-03-05] MEDS: FUROSEMIDE 40MG/4ML VIAL (J1940) IV SCH (02:00)
[2020-03-05 04:00] VITALS: BP 139/69
[2020-03-05 05:05] LABS: BASO % 0.1 % (0.0-1.0); EOS % 0.1 % (0.0-3.0); HEMATOCRIT 37.1 % (36.0-47.0); HEMOGLOBIN 12.5 g/dl (12.0-15.5); LYMPH # 0.9 10^3/uL (1.5-5.0); LYMPH % 6.1 % (24.0-44.0); MEAN CORPUSCULAR HEMOGLOBIN 29.8 pg (27.0-33.0); MEAN CORPUSCULAR HGB CONC 33.7 g/dl (32.0-36.5); MEAN CORPUSCULAR VOLUME 88.3 fl (80.0-96.0); MONO # 1.2 10^3/uL (0.0-0.8); MONO % 8.1 % (0.0-5.0); NEUTROPHILS # 12.9 10^3/uL (1.5-8.5); NEUTROPHILS % 85.1 % (36.0-66.0); PLATELET COUNT, AUTOMATED 382 10^3/uL (150-450); WHITE BLOOD COUNT 15.2 10^3/uL (4.0-10.0)
[2020-03-05 05:34] LABS: BLOOD UREA NITROGEN 18 MG/DL (7-18); CALCIUM LEVEL 8.2 MG/DL (8.8-10.2); CARBON DIOXIDE LEVEL 25 MEQ/L (21-32); CHLORIDE LEVEL 105 MEQ/L (98-107); CREATININE FOR GFR 0.52 MG/DL (0.55-1.30); GLOMERULAR FILTRATION RATE > 60.0 (>32); GLUCOSE, FASTING 132 MG/DL (70-100); POTASSIUM SERUM 2.8 MEQ/L (3.5-5.1); SODIUM LEVEL 139 MEQ/L (136-145)
[2020-03-05] MEDS ORDERED: POTASSIUM CHLORIDE 10% LIQ 20 MEQ/15 ML UDC PO ONE ×2 (06:00→10:00)
[2020-03-05] MEDS: SLF 3 ML SYR IV SCH ×3 (06:00→20:31)
[2020-03-05] MEDS ORDERED: POTASSIUM CHLORIDE 10 MEQ SR TABLET PO SCH (06:00)
[2020-03-05] MEDS ORDERED: LIDOCAINE 5% (LIDODERM) PATCH TD ONE (06:00)
[2020-03-05] MEDS: metroNIDAZOLE 500 MG in IV 1 EA IV SCH (06:12)
[2020-03-05] MEDS: KCL 10MEQ/100ML SWI (KRUN) 10 MEQ in IV 1 EA IV SCH ×4 (06:45→11:12)
--- NOTE | 2020-03-05 07:22 | IPNPDOC ---
Text Note Date of Service The patient was seen on 03/05/20. NOTE No acute events overnight. Denies nausea, or emesis. Abd pain is improved. Poor air movement still, and weak cough. VSSAF NAD abd - soft, TTP appropriate, dressings c/d/i labs - below A) 84y/o female s/p SBR for partial SBO P)npo NGT to LIS IS ambulate await return of bowel function Jesus Lim DO VS,Marcin, I+O VS, Marcin, I+O Laboratory Tests 03/04/20 07:30 03/05/20 04:35 Vital Signs Date Time Temp Pulse Resp B/P (MAP) Pulse Ox O2 Delivery O2 Flow Rate FiO2 03/05/20 04:00 98.1 75 18 139/69 (92) 96 Room Air 03/02/20 21:23 2.0 03/02/20 15:06 100 I&O- Last 24 Hours up to 6 AM 03/05/20 06:00 Intake Total 2750 ml Output Total 4225 ml Balance -1475 ml REYNALDO LIM DO Mar 05, 2020 07:22
--- NOTE | 2020-03-05 07:31 | ECGEPIP ---
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
[2020-03-05] MEDS: oxyCODONE 5MG TAB PO PRN (08:07)
[2020-03-05] MEDS: ALVIMOPAN 12 MG CAPSULE (ENTEREG) PO SCH ×2 (08:08→20:31)
[2020-03-05] MEDS: ENOXAPARIN 60MG/0.6ML SYRINGE (J1650 PER 10MG) SC SCH ×2 (08:08→20:31)
[2020-03-05] MEDS: atenoloL 25 MG TAB PO SCH (08:09)
[2020-03-05] MEDS: lisinopriL 20 MG TAB PO SCH (08:09)
[2020-03-05] MEDS: CIPROFLOXACIN 400 MG in IV 1 EA IV SCH (08:15)
[2020-03-05] MEDS ORDERED: MEROPENEM INJ 500 MG in IV 1 EA IV SCH (10:15)
[2020-03-05] MEDS: ONDANSETRON 4MG/2ML VIAL IV PRN (10:34)
[2020-03-05] MEDS: D5W/0.45% SODIUM CHLORIDE 1,000 ML IV SCH (11:14)
[2020-03-05] MEDS: MEROPENEM INJ 1 GM in IV 1 EA IV SCH ×2 (11:15→18:09)
[2020-03-05] MEDS: FUROSEMIDE 20MG/2ML VIAL (J1940) IV SCH ×3 (11:49→23:56)
[2020-03-05] MEDS: LACTOBACILLUS ACIDOPHILUS CAP (BACID) PO SCH ×2 (11:49→20:31)
[2020-03-05] MEDS: ACETAMINOPHEN 325 MG/10.15 ML UDC GT PRN ×2 (11:50→17:06)
--- NOTE | 2020-03-05 11:57 | REP ---
CT chest: 03/05/2020. Indication: Dyspnea. Technique: Unenhanced axial CT images of the chest were performed with coronal and sagittal reconstructions provided. Comparison: None. Findings: Left greater than right pleural effusions are present. Dependent atelectasis on the left is noted. There is no pneumothorax. Aortic and coronary atherosclerotic disease is noted. Impression: Left greater than right pleural effusions and left-sided dependent atelectasis. No definite pneumonia. Electronically Signed by Franco Caban DO 03/05/2020 11:49 A
--- NOTE | 2020-03-05 13:31 | IPN ---
DATE OF SERVICE: 03/05/2020 The patient has a cough productive of white sputum. No shortness of breath, fever, or chills. The patient still complains of abdominal pain rated at 2/10 but has back pain rated at 4/10. She continues to have generalized weakness and "I don't feel very good." No nausea or vomiting. Nasogastric tube still in place. Still nothing by mouth status. Vital signs: Temperature 98.4, pulse 81, respiratory rate 20, blood pressure 139/74, 96% on room air. Generally, the patient is in no respiratory distress. Nasogastric (NG) tube in place with bilious drainage. No jugular venous distention (JVD) or thyromegaly. Lungs: Diminished. Crackles at the right base. Heart: S1, S2, irregular. Telemetry sinus with PACs. Abdomen: Is soft, slightly tender throughout. Incision site clean. No drainage. Extremities: No cyanosis or clubbing. Intake and output: Input 4280, output 3400, positive 880. Weight is 64 kg from yesterday. 62.5 kg today. Negative 855 since midnight. LABORATORY DATA: White count 15.2, hemoglobin 12, hematocrit 37, platelet count 282. Sodium 138, potassium 2.8, chloride 105, bicarbonate 25, BUN 18, creatinine 0.52, glucose of 132, BNP was 3587. IMAGING STUDIES: Chest x-ray 03/04/2020: Right basilar opacity, right pleural effusion, pneumonia, and atelectasis considered, partial small-bowel obstruction without air fluid level. ASSESSMENT AND PLAN: This is an 84-year-old, FULL CODE, admitted on 03/01/2020 with abdominal pain, nausea, vomiting, abdominal distention. CT abdomen and pelvis showed partial small-bowel obstruction with slight leukocytosis, started on intravenous (IV) Cipro and Flagyl, and underwent ileocolectomy on 03/01/2020. Still with nasogastric (NG) tube and nothing by mouth status. On alvimopan. The patient had sinus tachycardia with PACs. Transferred to telemetry to rule out tachyarrhythmia, rule out atrial flutter, atrial fibrillation (AFib). Have been sinus tach with PACs persistently. Still not passing a bowel movement. IMPRESSION: 1. Small-bowel obstruction, not responded to conservative management, status post ileocolectomy on 03/01/2020. Has been on IV Cipro and Flagyl. Now with increasing white count at 15.8 and findings on chest x-ray of right basilar opacity concerning for pneumonia. The patient had shortness of breath and has developed right pleural effusion due to intravenous (IV) fluids given for nothing by mouth status and fluid overload. She has been given Lasix with subsequent hypokalemia. Potassium of 2.8, which has been repleted intravenously. 2. Right pleural effusion with right basilar opacity. The patient is currently on IV Lasix for a net negative balance to improve her shortness of breath. CT chest will be obtained to rule out healthcare-associated pneumonia. At this time, IV Cipro and Flagyl have been discontinued and currently started on renally-dosed meropenem to be dosed by pharmacy, to decrease risk of Clostridium (C) difficile, the patient will be started on Bacid twice a day despite nothing by mouth status. 3. Sinus tach with PACs. Currently, no evidence of AFib or atrial flutter. Currently, on IV fluids due to nothing by mouth status. May need total parenteral nutrition (TPN). 4. Fluid overload. The patient has no history of congestive heart failure but risk factors of postmenopausal state, diabetes, and hypertension. Now with fluid overload from being net negative positive from IV fluids due to nothing by mouth status. IV fluids were discontinued yesterday. on D5 half normal to prevent hypoglycemia. She is on Lasix every 6 hours with holding parameters. Strict intake and output (I and O) and daily weights to be monitored. Brain natriuretic peptide (BNP) is quite elevated. Echocardiogram ordered on 03/03/2020. 5. Abnormal electrocardiogram (EKG), PACs, left axis deviation and possible anterior myocardial infarction (VA) old. Continue to monitor on telemetry. [facility]
[2020-03-05 16:00] VITALS: BP 153/79
[2020-03-05 16:22] LABS: BLOOD UREA NITROGEN 18 MG/DL (7-18); CALCIUM LEVEL 7.8 MG/DL (8.8-10.2); CARBON DIOXIDE LEVEL 27 MEQ/L (21-32); CHLORIDE LEVEL 105 MEQ/L (98-107); CREATININE FOR GFR 0.55 MG/DL (0.55-1.30); GLOMERULAR FILTRATION RATE > 60.0 (>32); GLUCOSE, FASTING 187 MG/DL (70-100); MAGNESIUM LEVEL 1.1 MG/DL (1.8-2.4); SODIUM LEVEL 140 MEQ/L (136-145)
[2020-03-05] MEDS: MAG SULF 1GM/100ML (MAG RUN) 1 GM in IV 1 EA IV SCH ×4 (17:05→23:57)
[2020-03-05] MEDS ORDERED: **NOTE PATIENT COMMENT** MISC XX ONE (18:00)
[2020-03-05 20:00] VITALS: BP 114/54
[2020-03-05 21:45] LABS: BLOOD UREA NITROGEN 16 MG/DL (7-18); CALCIUM LEVEL 7.7 MG/DL (8.8-10.2); CARBON DIOXIDE LEVEL 27 MEQ/L (21-32); CHLORIDE LEVEL 104 MEQ/L (98-107); CREATININE FOR GFR 0.54 MG/DL (0.55-1.30); GLOMERULAR FILTRATION RATE > 60.0 (>32); GLUCOSE, FASTING 162 MG/DL (70-100); MAGNESIUM LEVEL 1.7 MG/DL (1.8-2.4); SODIUM LEVEL 140 MEQ/L (136-145)
[2020-03-05] MEDS ORDERED: POTASSIUM CHLORIDE 10 MEQ SR TABLET PO ONE (22:00)
[2020-03-06] VITALS: BP 134/83
[2020-03-06 00:37] LABS: BLOOD UREA NITROGEN 15 MG/DL (7-18); CALCIUM LEVEL 7.9 MG/DL (8.8-10.2); CARBON DIOXIDE LEVEL 28 MEQ/L (21-32); CHLORIDE LEVEL 102 MEQ/L (98-107); CREATININE FOR GFR 0.53 MG/DL (0.55-1.30); GLOMERULAR FILTRATION RATE > 60.0 (>32); GLUCOSE, FASTING 189 MG/DL (70-100); POTASSIUM SERUM 3.1 MEQ/L (3.5-5.1); SODIUM LEVEL 138 MEQ/L (136-145)
[2020-03-06] MEDS: KCL 10MEQ/100ML SWI (KRUN) 10 MEQ in IV 1 EA IV SCH ×4 (00:37→04:40)
[2020-03-06] MEDS: ACETAMINOPHEN 325 MG/10.15 ML UDC GT PRN ×2 (00:38→19:21)
[2020-03-06] MEDS: oxyCODONE 5MG TAB PO PRN ×2 (01:35→22:19)
[2020-03-06] MEDS: MEROPENEM INJ 1 GM in IV 1 EA IV SCH ×3 (03:31→20:37)
[2020-03-06 04:00] VITALS: BP 115/66
[2020-03-06 05:19] LABS: BASO % 0.2 % (0.0-1.0); HEMATOCRIT 36.5 % (36.0-47.0); HEMOGLOBIN 12.4 g/dl (12.0-15.5); LYMPH # 0.6 10^3/uL (1.5-5.0); LYMPH % 5.2 % (24.0-44.0); MEAN CORPUSCULAR HEMOGLOBIN 29.7 pg (27.0-33.0); MEAN CORPUSCULAR VOLUME 87.3 fl (80.0-96.0); NEUTROPHILS # 10.2 10^3/uL (1.5-8.5); NEUTROPHILS % 85.9 % (36.0-66.0); PLATELET COUNT, AUTOMATED 371 10^3/uL (150-450); RED BLOOD COUNT 4.18 10^6/uL (4.00-5.40); WHITE BLOOD COUNT 11.9 10^3/uL (4.0-10.0)
[2020-03-06 05:40] LABS: BLOOD UREA NITROGEN 13 MG/DL (7-18); C REACTIVE PROTEIN QUANTITATIV 5.35 MG/DL (0.00-0.30); CALCIUM LEVEL 7.7 MG/DL (8.8-10.2); CARBON DIOXIDE LEVEL 28 MEQ/L (21-32); CHLORIDE LEVEL 102 MEQ/L (98-107); CK-MB VALUE MASS 1.4 NG/ML (<3.6); CPK CREATINE PHOSPHOKINASE 44 U/L (26-192); CREATININE FOR GFR 0.51 MG/DL (0.55-1.30); GLOMERULAR FILTRATION RATE > 60.0 (>32); GLUCOSE, FASTING 203 MG/DL (70-100); MB/CK RELATIVE INDEX 3.18 (< OR =4); NT-PRO BNP 2896 PG/ML (<450); POTASSIUM SERUM 3.5 MEQ/L (3.5-5.1); SODIUM LEVEL 137 MEQ/L (136-145); TROPONIN I < 0.02 NG/ML (< 0.10)
[2020-03-06 05:45] LABS: ERYTHROCYTE SEDIMENTATION RATE 14 mm/hr (0-30)
[2020-03-06] MEDS: SLF 3 ML SYR IV SCH ×3 (06:27→20:38)
[2020-03-06] MEDS: HumaLOG INSULIN (NovoLOG) PER UNIT SC SCH ×3 (06:27→19:18)
[2020-03-06] MEDS: D5W/0.45% SODIUM CHLORIDE 1,000 ML IV SCH (06:27)
[2020-03-06 07:53] VITALS: BP 142/69
[2020-03-06] MEDS: ALVIMOPAN 12 MG CAPSULE (ENTEREG) PO SCH (09:00)
[2020-03-06] MEDS: LACTOBACILLUS ACIDOPHILUS CAP (BACID) PO SCH ×2 (09:23→20:37)
[2020-03-06] MEDS: atenoloL 25 MG TAB PO SCH (09:24)
[2020-03-06] MEDS: lisinopriL 20 MG TAB PO SCH (09:24)
[2020-03-06] MEDS: ENOXAPARIN 60MG/0.6ML SYRINGE (J1650 PER 10MG) SC SCH ×2 (09:24→20:37)
[2020-03-06 12:16] VITALS: BP 133/63
[2020-03-06] MEDS: FUROSEMIDE 40MG/4ML VIAL (J1940) IV SCH ×3 (12:48→22:18)
[2020-03-06 15:36] VITALS: BP 127/61
[2020-03-06] MEDS ORDERED: LIDOCAINE 1% MDV 20ML VIAL As Ordered ONE (15:36)
--- NOTE | 2020-03-06 17:58 | IPN ---
DATE: 03/06/2020 Patient says that she is passing gas but very small amount. She continues to feel nauseous with output through the nasogastric tube at 900 at the bedside. Patient continues to have ileus, post ileocolectomy. She is afebrile. Shortness of breath is still present but slightly improved. She has diuresed 2.2 liters out yesterday on intravenous (IV) Lasix and D5 half normal to prevent hypoglycemia. Creatinine is stable at 0.51. BNP remains elevated at 2896. Temperature 98.5, pulse 78, respiratory rate 18, blood pressure 142/69, 95% on room air. Generally, awake, alert, oriented to person, place. Answering questions appropriately. No respiratory distress. Nasogastric tube in place with bilious drainage. No thyromegaly or cervical lymphadenopathy. Lungs: Diminished with bilateral crackles. Heart: S1, S2, irregular with telemetry showing sinus with PACs. Abdomen: Is soft, distended, slightly tender. No rebound, guarding. Incision site is clean. There is no purulent drainage. Extremities: No pitting edema. White count 11, hemoglobin 12, hematocrit 36, platelet count 371. Sodium 137, potassium 3.5, chloride 102, bicarbonate 28, BUN 13, creatinine 0.5, glucose of 203, BNP was 2896. IMAGING STUDIES: Chest x-ray 03/04/2020: Right pleural effusion, questionable pneumonia, atelectasis considered, partial small-bowel obstruction. ASSESSMENT AND PLAN: This is an 84-year-old, FULL CODE, admitted on 03/01/2020 with abdominal pain, nausea, vomiting, and abdominal distention. CT abdomen and pelvis showed partial small-bowel obstruction with leukocytosis, was started on intravenous (IV) Cipro and Flagyl, and underwent ileocolectomy on 03/01/2020. Since then, patient had a nasogastric tube and nothing by mouth status and continued to not have a bowel movement, on alvimopan and sinus tachycardia with PACs, transferred to telemetry to rule out atrial flutter, atrial fibrillation (AFib). She remains with sinus tach with PACs and now passing flatus but still nothing by mouth status with significant bilious drainage. Patient has developed fluid overload and persistent effusion. Currently on IV Lasix. Echocardiogram ordered without any results. Currently on net negative balance on D5 for glucose to prevent hypoglycemia. CURRENT ISSUES: 1. small Bowel obstruction, status post ileocolectomy, managed by surgery. On Entereg. Patient is currently still nothing by mouth with significant bilious drainage on IV fluids, despite congestive heart failure. Patient will need a peripherally inserted central catheter (PICC) line for total parenteral nutrition (TPN) if patient continues to be nothing by mouth status.on merem and bacid previously on cipro flagyl 2. acute diastolic Congestive heart failure. Currently on intravenous Lasix every 6 hourly with holding parameters to keep her at net negative balance. TPN and nutritional consult. If she continues to be in nothing by mouth status, patient will require a PICC line placed, which has been ordered today. 3. Sinus tach with PACs. No acute issues. 4. atelectasis . CT chest has no identifiable consolidation, only left-sided dependent atelectasis 5. Debility. Physical therapy (PT) ordered. Activity as tolerated. MTDD
[2020-03-06] MEDS ORDERED: MULTIVITAMIN -ADULT INJECTION 10 ML, CR/CU/SE/MN/ZN INJ 1 ML in AMINO AC/ELECTROLYTE/DE... IV SCH (18:00)
[2020-03-06] MEDS ORDERED: FAT EMULSION IV 20% 500 ML IV SCH (18:00)
--- NOTE | 2020-03-06 18:28 | REP ---
Procedure: PICC line insertion with Tamanna The procedure was performed under the direct supervision of Dr. Pena. The risks and benefits of the procedure were explained to the patient and informed consent was obtained. The right basilic vein was localized using ultrasound guidance. The skin was prepped and draped in a sterile fashion. 2% lidocaine was used as a local anesthetic. Using ultrasound guidance the basilic vein was cannulated and a 0.018 guidewire was inserted and advanced to the SVC using fluoroscopic guidance. The needle was removed and a 5.5 [place] dilator and peel-away sheath was inserted over the guide wire. A 5.5 [place] dual lumen catheter was cut to length of 38 cm. The dilator was removed and the catheter was inserted over the guide wire with the tip ending in the SVC. The peel-away sheath was removed and the catheter was flushed with heparinized saline as per Hospital protocol. The catheter was affixed to the skin and a sterile dressing was applied. The patient tolerated the procedure well and there were no immediate complications. 0.5 minutes of fluoro time was utilized for this procedure. Electronically Signed by HEIDI Angeles 03/06/2020 04:40 P Electronically Signed by Nick Pena MD 03/06/2020 06:19 P
[2020-03-06] MEDS: SODIUM CHLORIDE 0.9% INJ 10 ML SYR IV SCH (18:59)
[2020-03-06 20:00] VITALS: BP 131/61
--- NOTE | 2020-03-06 23:58 | ECHO ---
DATE OF PROCEDURE: 03/06/2020 REFERRING PHYSICIAN: Dr. Leti Juarez INDICATION: Cardiac dysrhythmia. Height is 160 cm, weight is 56 kg. DIMENSIONS: IVS: 1.3 LV: 2.3 LVPW: 1.3 LA: 2.3 Aorta: 3.2 Mitral E wave velocity: 65 A wave: 106 E prime septal: 3.1 E prime lateral: 3.7 FINDINGS: The study is of rather limited technical quality with difficult visualization. The patient is in sinus rhythm. Normal left ventricular (LV) size with mild left ventricular hypertrophy (LVH) and preserved LV systolic function, estimated left ventricular ejection fraction (LVEF) around 65%. No segmental wall motion abnormalities are appreciated. Right ventricle appears grossly normal size and systolic function. Both atria appear at least mildly enlarged. Aortic valve is sclerotic but it has normal mobility. There are very prominent degenerative abnormalities of mitral valve with mitral annular calcifications. Mobility of leaflets is preserved. Tricuspid valve appears normal. Pulmonic valve was not well seen. Trivial pericardial effusion is noted. Left pleural effusion is seen. Aortic root is normal. Aortic arch and abdominal aorta were not visualized. Doppler interrogation reveals no significant aortic stenosis or insufficiency. There is trace mitral insufficiency and mild tricuspid insufficiency. Calculated pulmonary artery pressure is in low 30s assuming normal central venous pressure corresponding to normal pulmonary artery pressure. Mitral inflow pattern and tissue Doppler imaging of mitral annulus revealed grade 1 diastolic dysfunction. CONCLUSIONS: 1. Study is of fair technical quality, the patient is in sinus rhythm. 2. Normal LV size with mild LVH, preserved LV systolic function and grade 1 diastolic dysfunction. 3. Aortic sclerosis with no significant stenosis or insufficiency. 4. Very prominent mitral annular calcifications but no significant mitral stenosis and only trace insufficiency. 5. Unable to estimate central venous pressure but likely normal or maybe mildly elevated pulmonary artery pressure. 6. Trivial pericardial effusion. 7. Left pleural effusion. COMMENT: Subacute bacterial endocarditis (SBE) prophylaxis is not recommended.
[2020-03-07] MEDS: HumaLOG INSULIN (NovoLOG) PER UNIT SC SCH ×5 (00:30→23:49)
[2020-03-07] MEDS: D5W/0.45% SODIUM CHLORIDE 1,000 ML IV SCH (01:30)
[2020-03-07 05:29] LABS: BASO % 0.1 % (0.0-1.0); EOS # 0.1 10^3/uL (0.0-0.5); EOS % 0.9 % (0.0-3.0); HEMATOCRIT 31.1 % (36.0-47.0); HEMOGLOBIN 10.6 g/dl (12.0-15.5); LYMPH # 0.6 10^3/uL (1.5-5.0); LYMPH % 8.1 % (24.0-44.0); MEAN CORPUSCULAR HEMOGLOBIN 29.9 pg (27.0-33.0); MEAN CORPUSCULAR HGB CONC 34.1 g/dl (32.0-36.5); MEAN CORPUSCULAR VOLUME 87.9 fl (80.0-96.0); MONO # 1.1 10^3/uL (0.0-0.8); MONO % 13.2 % (0.0-5.0); NEUTROPHILS # 6.1 10^3/uL (1.5-8.5); NEUTROPHILS % 76.8 % (36.0-66.0); PLATELET COUNT, AUTOMATED 354 10^3/uL (150-450); RED BLOOD COUNT 3.54 10^6/uL (4.00-5.40)
[2020-03-07] MEDS: FUROSEMIDE 40MG/4ML VIAL (J1940) IV SCH ×4 (06:00→23:49)
[2020-03-07] MEDS: MEROPENEM INJ 1 GM in IV 1 EA IV SCH ×3 (06:00→20:38)
[2020-03-07] MEDS: SLF 3 ML SYR IV SCH ×3 (06:01→21:54)
[2020-03-07] MEDS: SODIUM CHLORIDE 0.9% INJ 10 ML SYR IV SCH ×2 (06:01→18:44)
[2020-03-07 06:06] LABS: BLOOD UREA NITROGEN 13 MG/DL (7-18); CALCIUM LEVEL 7.1 MG/DL (8.8-10.2); CARBON DIOXIDE LEVEL 32 MEQ/L (21-32); CHLORIDE LEVEL 99 MEQ/L (98-107); CREATININE FOR GFR 0.47 MG/DL (0.55-1.30); GLOMERULAR FILTRATION RATE > 60.0 (>32); GLUCOSE, FASTING 191 MG/DL (70-100); POTASSIUM SERUM 2.8 MEQ/L (3.5-5.1); SODIUM LEVEL 139 MEQ/L (136-145)
[2020-03-07] MEDS ORDERED: KCL 10MEQ/100ML SWI (KRUN) 10 MEQ in IV 1 EA IV SCH (06:30)
[2020-03-07 08:00] VITALS: BP 101/52
[2020-03-07] MEDS: KCL 10MEQ/100ML SWI (KRUN) 10 MEQ in IV 1 EA IV SCH ×4 (08:18→11:36)
[2020-03-07] MEDS: LACTOBACILLUS ACIDOPHILUS CAP (BACID) PO SCH ×2 (08:19→20:38)
[2020-03-07] MEDS: ENOXAPARIN 60MG/0.6ML SYRINGE (J1650 PER 10MG) SC SCH ×2 (08:33→20:37)
[2020-03-07] MEDS: atenoloL 25 MG TAB PO SCH (09:00)
[2020-03-07] MEDS: lisinopriL 20 MG TAB PO SCH (09:00)
[2020-03-07] MEDS: ACETAMINOPHEN 325 MG/10.15 ML UDC GT PRN ×3 (09:26→16:10)
[2020-03-07 12:00] VITALS: BP 112/53
[2020-03-07 16:00] VITALS: BP 113/67
--- NOTE | 2020-03-07 16:58 | IPNPDOC ---
Date Seen The patient was seen on 03/07/20. Progress Note SUBJECTIVE: PICC line placed 03/06/20. Very little out of NG tube overnight, liquid bile colored. Large BM, will discuss with surgery about removing NG tube and starting on clear liquid diet. TPN needing adjusting. Potassium replaced. Patient has mild abdominal tenderness of exam but denies chest pain, increased shortness of breath, fevers, chills, n/v. OBJECTIVE: VITAL SIGNS: Please see below PHYSICAL EXAMINATION: CONSTITUTIONAL: No acute distress, resting comfortably, AAO x 3 EYES: PERRLA, EOM intact HENT, MOUTH: Normocephalic, atraumatic, moist mucous membranes NECK: SUPPLE, no JVD, no lymphadenopathy, no carotid bruit CV: Regular rate and rhythm, S1S2 normal, no murmurs/rubs/gallops RESPIRATORY: Clear to auscultation bilaterally, no rales/rhonchi/wheezes GI: BS positive in 4 quadrants, soft, nontender, nondistended, no rebound or guarding, no organomegaly : Deferred MUSCULOSKELETAL: Normal ROM. No cyanosis, clubbing, swelling, joint deformity, extremity edema INTEGUMENTARY: Intact, no rashes, no lesions, no erythema NEUROLOGIC: Cranial Nerves II-XII are intact, no focal deficits PSYCHIATRIC: Mood and affect are normal CURRENT MEDICATIONS: Please see below LABORATORY DATA: Please see below IMAGING: No new imaging. ASSESSMENT: 84 y/o F admitted for partial small bowel obstruction s/p ileocolectomy. PLAN: 1. Small Bowel obstruction, status post ileocolectomy. TPN currently, little out of NG tube. F/u with surgery about removing NG, advancing to CLD. PICC in place. 2. Acute diastolic Congestive heart failure. BNP 2800, -850 cc/24 hrs. C/w IV lasix Q6H, ACEi, BB. 3. Hypokalemia likely 2/2 to lasix administration. Potassium 2.8 this AM, s/p 40 mEq IV. Repeat 3.3, giving additional 40 mEq now. F/u AM potassium. 4. Sinus tach with PACs. -Resolved. 5. Deconditioning. PT/OT. 6. DVT px. Enoxaparin DISPOSITION: Currently inpatient status. Plan is undetermined for discharge at this time. PT/OT. VS, I&O, 24H, Fishbone Vital Signs/I&O Vital Signs Date Time Temp Pulse Resp B/P (MAP) Pulse Ox O2 Delivery O2 Flow Rate FiO2 03/07/20 12:00 98.2 70 16 112/53 (72) 95 Room Air 03/02/20 21:23 2.0 03/02/20 15:06 100 I&O- Last 24 Hours up to 6 AM0 03/07/20 05:59 Intake Total 0 ml Output Total 525 ml Balance -525 ml Laboratory Data 24H LABS Laboratory Tests 2 03/06/20 18:17: Bedside Glucose (Misc Panel) 145H 03/07/20 00:24: Bedside Glucose (Misc Panel) 255H 03/07/20 05:02: Immature Granulocyte % (Auto) 0.9, Neutrophils (%) (Auto) 76.8H, Lymphocytes (%) (Auto) 8.1L, Monocytes (%) (Auto) 13.2H, Eosinophils (%) (Auto) 0.9, Basophils (%) (Auto) 0.1, Neutrophils # (Auto) 6.1, Lymphocytes # (Auto) 0.6L, Monocytes # (Auto) 1.1H, Eosinophils # (Auto) 0.1, Basophils # (Auto) 0.0, Nucleated Red Blood Cells % (auto) 0.0, Anion Gap 8, Glomerular Filtration Rate > 60.0, Calcium Level 7.1L 03/07/20 12:33: Bedside Glucose (Misc Panel) 204H CBC/BMP Laboratory Tests 03/07/20 05:02 03/07/20 12:58 Current Medications Current Medications Medications (Trade) Dose Ordered Sig/Ashwin Route PRN Reason Start Time Stop Time Status Last Admin Dose Admin Acetaminophen (Tylenol Suspension) 650 mg Q4HP PRN GT PAIN OR FEVER 03/04/20 07:30 03/07/20 16:10 Acetaminophen (Tylenol Suspension) 650 mg Q4HP PRN NG PAIN OR FEVER 03/03/20 11:30 03/04/20 07:17 DC 03/03/20 17:35 Alvimopan (Entereg) 12 mg BID PO 03/02/20 21:00 03/06/20 13:10 DC 03/05/20 20:31 Atenolol (Tenormin) 25 mg DAILY PO 03/04/20 09:00 03/06/20 09:24 Atorvastatin Calcium (Lipitor) 20 mg DAILY PO 03/01/20 09:00 03/01/20 15:43 DC Atorvastatin Calcium (Lipitor) 20 mg DAILY@2100 PO 03/01/20 21:00 03/03/20 15:47 DC 03/02/20 20:22 Cetylpyridinium Chloride (Cepacol) 1 umu Q1HP PRN PO COUGH 03/01/20 16:30 03/01/20 16:29 Ciprofloxacin 400 mg/IV Miscellaneous Supplies 200 ml @ 200 mls/hr Q12H IV 03/01/20 20:00 03/05/20 10:06 DC 03/05/20 08:15 Dextrose (Dextrose 50%) 25 ml ASDIRECTED PRN IV SEE LABEL COMMENTS 03/01/20 01:00 Dextrose/Sodium Chloride 1,000 ml @ 60 mls/hr [id number] IV 03/05/20 11:00 03/07/20 12:22 DC 03/07/20 01:30 Diatrizoate Meglum/ Diatrizoate Sod (Gastrografin) 10 ml Q30M PO 02/29/20 20:10 02/29/20 20:41 DC 02/29/20 20:31 Enoxaparin Sodium (Lovenox) 40 mg DAILY SC 03/01/20 09:00 03/02/20 15:01 DC 03/01/20 10:55 Enoxaparin Sodium (Lovenox) 60 mg Q12H SC 03/03/20 18:45 03/03/20 18:43 DC Enoxaparin Sodium (Lovenox) 60 mg Q12H SC 03/03/20 20:00 03/07/20 08:33 Fat Emulsion Intravenous 500 ml @ 20 mls/hr ONCE@1800 IV 03/06/20 18:00 03/07/20 17:59 03/06/20 18:59 Fat Emulsion Intravenous 500 ml @ 20 mls/hr ONCE@1800 IV 03/07/20 18:00 03/08/20 17:59 Fentanyl Citrate (Sublimaze) 25 mcg Q5MP PRN IV PAIN LEVEL 5-10 03/02/20 15:30 03/02/20 16:30 DC 03/02/20 16:10 Furosemide (LASIX injection) 20 mg Q6H IV 03/05/20 11:00 03/05/20 23:01 DC 03/05/20 23:56 Furosemide (LASIX injection) 40 mg Q6H IV 03/06/20 11:00 03/07/20 06:00 Furosemide (LASIX injection) 40 mg Q8H IV 03/04/20 10:00 03/05/20 10:35 DC 03/04/20 18:06 Glucagon (Glucagon) 1 mg ASDIRECTED PRN SC SEE LABEL COMMENTS 03/01/20 01:00 Glucose (Glucose) 16 GM ASDIRECTED PRN PO SEE LABEL COMMENTS 03/01/20 01:00 Heparin Sodium (Heparin (Flush)) 200 units ASDIRECTED PRN IV SEE LABEL COMMENTS 03/06/20 18:00 Heparin Sodium (Heparin (Flush)) 200 units PICC IV 03/06/20 18:00 03/07/20 06:01 Home Med (Med Rec Complete!) ASDIRECTED XX 03/01/20 00:00 03/01/20 00:02 DC Hydromorphone HCl (Dilaudid) 0.2 mg Q5MP PRN IV PAIN LEVEL 4-7 03/02/20 15:30 03/02/20 16:30 DC 03/02/20 15:36 Insulin Human Lispro (HumaLOG INSULIN) SEE PROTOCOL TABLE Q6H SC 03/01/20 00:00 03/07/20 13:09 Lactated Ringer's 1,000 ml @ 100 mls/hr Q10H IV 03/02/20 15:30 03/02/20 16:30 DC Lactobacillus Acidophilus (Bacid) 1 ea BID PO 03/05/20 09:00 03/07/20 08:19 Lisinopril (Prinivil) 20 mg DAILY PO 03/01/20 09:00 03/06/20 09:24 Magnesium Sulfate/ Dextrose 1 gm/IV Miscellaneous Supplies 100 ml @ 100 mls/hr Q1H IV 03/05/20 17:00 03/05/20 18:59 DC 03/05/20 18:10 Magnesium Sulfate/ Dextrose 1 gm/IV Miscellaneous Supplies 100 ml @ 100 mls/hr Q1H IV 03/05/20 22:00 03/05/20 23:59 DC 03/05/20 23:57 Meropenem 1 gm/IV Miscellaneous Supplies 50 ml @ 100 mls/hr Q8H IV 03/05/20 11:00 03/06/20 10:24 DC 03/06/20 03:31 Meropenem 1 gm/IV Miscellaneous Supplies 50 ml @ 100 mls/hr Q8H IV 03/06/20 13:00 03/13/20 12:59 03/07/20 13:09 Meropenem 500 mg/ IV Miscellaneous Supplies 50 ml @ 100 mls/hr Q8H IV 03/05/20 10:15 03/05/20 10:19 DC Metoprolol Tartrate (Lopressor) 5 mg Q6H IV 03/03/20 20:00 03/04/20 07:22 DC 03/04/20 03:23 Metoprolol Tartrate (Lopressor) 5 mg Q6HP PRN IV HR>100 03/04/20 07:30 Hold Metronidazole 500 mg/IV Miscellaneous Supplies 100 ml @ 100 mls/hr Q8H IV 03/01/20 21:00 03/05/20 10:06 DC 03/05/20 06:12 Morphine Sulfate (Morphine Sulfate Inj) 2 mg Q2HP PRN IV SEVERE PAIN (PS 8-10) 03/02/20 15:00 03/04/20 07:17 DC 03/03/20 12:41 Morphine Sulfate (Morphine Sulfate Inj) 2 mg Q4HP PRN IV SEVERE PAIN (PS 8-10) 03/01/20 06:30 03/01/20 06:35 DC Morphine Sulfate (Morphine Sulfate Inj) 2 mg Q4HP PRN IV SEVERE PAIN (PS 8-10) 03/01/20 06:35 03/02/20 15:01 DC 03/02/20 10:12 Multivitamins 10 ml/Chromium/ Copper/Manganese/ Seleni/Zn 1 ml/ Amino Ac/Electrol/ Dextrose/Calcium 2,011 ml @ 50 mls/hr ONCE@1800 IV 03/06/20 18:00 03/07/20 17:59 03/06/20 18:58 Ondansetron HCl (ZOFRAN INJection) 4 mg Q4HP PRN IV NAUSEA OR VOMITING 03/02/20 09:30 03/05/20 10:34 Ondansetron HCl (ZOFRAN INJection) 4 mg Q4HP PRN IV NAUSEA OR VOMITING 03/02/20 15:30 03/02/20 16:30 DC Ondansetron HCl (ZOFRAN INJection) 4 mg Q8HP PRN IV NAUSEA OR VOMITING 03/01/20 06:30 03/02/20 09:24 DC 03/02/20 05:58 Oxycodone HCl (Roxicodone, Oxyir) 5 mg ASDIRECTED PRN PO PAIN LEVEL 1-4 03/02/20 15:30 03/02/20 16:30 DC Oxycodone HCl (Roxicodone, Oxyir) 5 mg DAILY PRN PO PAIN 03/01/20 00:45 03/06/20 22:19 Phenol (Chloraseptic [place]) 5 spray Q2HP PRN MT SORE THROAT 03/01/20 16:30 03/03/20 17:35 Potassium Chloride 10 meq/ IV Miscellaneous Supplies 100 ml @ 100 mls/hr 0630,0730,0830,0930 IV 03/07/20 06:30 03/07/20 07:50 DC Potassium Chloride 10 meq/ IV Miscellaneous Supplies 100 ml @ 100 mls/hr Q1H IV 03/05/20 05:45 03/05/20 09:44 DC 03/05/20 11:12 Potassium Chloride 10 meq/ IV Miscellaneous Supplies 100 ml @ 100 mls/hr Q1H IV 03/06/20 00:00 03/06/20 03:59 DC 03/06/20 04:40 Potassium Chloride 10 meq/ IV Miscellaneous Supplies 100 ml @ 100 mls/hr Q1H IV 03/07/20 08:00 03/07/20 11:59 DC 03/07/20 11:36 Potassium Chloride 66.7 meq/ Amino Ac/Electrol/ Dextrose/Calcium 2,033.35 ml @ 50 mls/hr ONCE@1800 IV 03/07/20 18:00 03/08/20 17:59 Potassium Chloride (Micro-K Extencaps) 40 meq Q4H PO 03/05/20 06:00 03/05/20 10:01 Cancel Simethicone (Mylicon) 120 mg QID PO 03/01/20 21:00 03/02/20 15:02 DC 03/02/20 08:55 Sodium Chloride 1,000 ml @ 150 mls/hr Q6H40M IV 03/01/20 19:15 03/04/20 09:07 DC 03/04/20 07:34 Sodium Chloride 1,000 ml @ 150 mls/hr Q6H40M IV 02/29/20 19:28 03/01/20 19:00 DC 03/01/20 16:33 Sodium Chloride (Saline Lock Flush) 2 ml ASDIRECTED PRN IV SEE LABEL COMMENTS 03/04/20 10:30 Sodium Chloride (Saline Lock Flush) 2 ml SLF IV 03/04/20 14:00 03/07/20 06:01 Sodium Chloride (Saline Lock Flush) 10 ml ASDIRECTED PRN IV SEE LABEL COMMENTS 03/06/20 18:00 Sodium Chloride (Saline Lock Flush) 10 ml PICC IV 03/06/20 18:00 03/07/20 06:01 Allergies Coded Allergies: amoxicillin (Unverified Allergy, Unknown, 02/29/20) morphine (Verified Adverse Reaction, Mild, 03/04/20) Teri Miller MD Mar 07, 2020 16:58
[2020-03-07] MEDS ORDERED: POTASSIUM CHLORIDE 10 MEQ SR TABLET PO ONE (17:45)
[2020-03-07] MEDS ORDERED: FAT EMULSION IV 20% 500 ML IV SCH (18:00)
[2020-03-07] MEDS ORDERED: POTASSIUM CHLORIDE INJ 66.7 MEQ in AMINO AC/ELECTROLYTE/DEX/CALC 2,000 ML IV SCH (18:00)
[2020-03-07] MEDS: POTASSIUM CHLORIDE 10% LIQ 20 MEQ/15 ML UDC PO SCH ×2 (20:38→23:50)
[2020-03-07 22:00] VITALS: BP 148/80
[2020-03-07 22:46] LABS: CLOSTRIDIUM DIFFICILE PCR NEGATIVE (NEGATIVE)
[2020-03-08] MEDS: MEROPENEM INJ 1 GM in IV 1 EA IV SCH ×3 (05:39→20:33)
[2020-03-08] MEDS: HumaLOG INSULIN (NovoLOG) PER UNIT SC SCH ×4 (05:39→20:25)
[2020-03-08] MEDS: FUROSEMIDE 40MG/4ML VIAL (J1940) IV SCH ×4 (05:39→23:08)
[2020-03-08] MEDS: SLF 3 ML SYR IV SCH ×2 (05:40→14:00)
[2020-03-08] MEDS: SODIUM CHLORIDE 0.9% INJ 10 ML SYR IV SCH ×2 (05:41→17:40)
[2020-03-08 06:00] VITALS: BP 127/94
[2020-03-08 06:33] LABS: BASO % 0.2 % (0.0-1.0); EOS # 0.1 10^3/uL (0.0-0.5); EOS % 0.7 % (0.0-3.0); HEMATOCRIT 34.8 % (36.0-47.0); HEMOGLOBIN 11.9 g/dl (12.0-15.5); LYMPH % 10.7 % (24.0-44.0); MEAN CORPUSCULAR HEMOGLOBIN 29.7 pg (27.0-33.0); MEAN CORPUSCULAR HGB CONC 34.2 g/dl (32.0-36.5); MEAN CORPUSCULAR VOLUME 86.8 fl (80.0-96.0); MONO # 1.1 10^3/uL (0.0-0.8); MONO % 11.9 % (0.0-5.0); NEUTROPHILS # 6.8 10^3/uL (1.5-8.5); NEUTROPHILS % 75.4 % (36.0-66.0); PLATELET COUNT, AUTOMATED 343 10^3/uL (150-450); RED BLOOD COUNT 4.01 10^6/uL (4.00-5.40)
[2020-03-08 06:46] LABS: BLOOD UREA NITROGEN 16 MG/DL (7-18); CALCIUM LEVEL 7.9 MG/DL (8.8-10.2); CARBON DIOXIDE LEVEL 38 MEQ/L (21-32); CHLORIDE LEVEL 93 MEQ/L (98-107); CREATININE FOR GFR 0.49 MG/DL (0.55-1.30); GLOMERULAR FILTRATION RATE > 60.0 (>32); GLUCOSE, FASTING 212 MG/DL (70-100); POTASSIUM SERUM 3.6 MEQ/L (3.5-5.1); SODIUM LEVEL 135 MEQ/L (136-145)
[2020-03-08] MEDS: oxyCODONE 5MG TAB PO PRN (08:40)
[2020-03-08] MEDS: lisinopriL 20 MG TAB PO SCH (08:41)
[2020-03-08] MEDS: atenoloL 25 MG TAB PO SCH (08:41)
[2020-03-08] MEDS: LACTOBACILLUS ACIDOPHILUS CAP (BACID) PO SCH ×2 (08:41→20:34)
[2020-03-08] MEDS: ENOXAPARIN 60MG/0.6ML SYRINGE (J1650 PER 10MG) SC SCH ×2 (08:45→20:33)
[2020-03-08] MEDS ORDERED: LEVEMIR (INSULIN DETEMIR) 1 UNITS/0.01ML SC SCH (09:00)
[2020-03-08] MEDS: SODIUM CHLORIDE 0.9% INJ 10 ML SYR IV PRN (12:28)
[2020-03-08] MEDS: ACETAMINOPHEN 325 MG/10.15 ML UDC GT PRN ×2 (13:51→20:33)
[2020-03-08 14:00] VITALS: BP 95/51
--- NOTE | 2020-03-08 16:21 | IPNPDOC ---
Date Seen The patient was seen on 03/08/20. Progress Note SUBJECTIVE: Diarrhea 03/07/20 x 2 and once today. C. diff PCR neg. Tolerating clear liquids well and diarrhea could be 2/2 to liquid only diet. Advancing further today. Urinary retention found with 600 cc in bladder, garcia catheter placed. Still on TPN. Adding low dose levemir to AM meds due to increased BS. Patient has mild abdominal tenderness of exam today, increased from yesterday. Denies chest pain, increased shortness of breath, fevers, chills, n/v. OBJECTIVE: VITAL SIGNS: Please see below PHYSICAL EXAMINATION: CONSTITUTIONAL: No acute distress, resting comfortably, AAO x 3 EYES: PERRLA, EOM intact HENT, MOUTH: Normocephalic, atraumatic, moist mucous membranes NECK: SUPPLE, no JVD, no lymphadenopathy, no carotid bruit CV: Regular rate and rhythm, S1S2 normal, no murmurs/rubs/gallops RESPIRATORY: Clear to auscultation bilaterally, no rales/rhonchi/wheezes GI: Abdominal pain on palpation of RLQ. BS positive in 4 quadrants, soft, nondistended, no rebound or guarding, no organomegaly : Deferred MUSCULOSKELETAL: Normal ROM. No cyanosis, clubbing, swelling, joint deformity, extremity edema INTEGUMENTARY: Redness on bilateral buttocks, no open sores or ulcers. Intact, no rashes, no lesions NEUROLOGIC: Cranial Nerves II-XII are intact, no focal deficits PSYCHIATRIC: Mood and affect are normal CURRENT MEDICATIONS: Please see below LABORATORY DATA: Please see below IMAGING: No new imaging. ASSESSMENT: 84 y/o F admitted for partial small bowel obstruction s/p ileocolectomy. PLAN: 1. Small Bowel obstruction, status post ileocolectomy- Resolved. Diarrhea likely due to liquid diet and possibly TPN- c. diff PCR neg. Advancing diet today, surgery following. 2. Acute diastolic Congestive heart failure. BNP 2800, f/u repeat in AM. -1380 cc/24 hrs. C/w IV lasix Q8H, ACEi, BB. 3. Diarrhea likely 2/2 to liquid diet vs. TPN. Monitor closely with electrolyte changes. C. diff PCR neg. 4. Hyponatremia likely 2/2 to overdiuresis, loss with diarrhea. Monitor for worsening dehydration. Decreased lasix dose, f/u daily labs. VS stable. 5. Hypokalemia likely 2/2 to lasix administration. Resolved but f/u AM labs 6. Deconditioning. PT/OT. 7. DVT px. Enoxaparin DISPOSITION: Currently inpatient status. Plan is undetermined for discharge at this time. PT/OT. VS, I&O, 24H, Fishbone Vital Signs/I&O Vital Signs Date Time Temp Pulse Resp B/P (MAP) Pulse Ox O2 Delivery O2 Flow Rate FiO2 03/08/20 14:00 98.5 95 18 95/51 (66) 98 Room Air 03/02/20 21:23 2.0 03/02/20 15:06 100 I&O- Last 24 Hours up to 6 AM 03/08/20 06:00 Intake Total 1570 ml Output Total 3350 ml Balance -1780 ml Laboratory Data 24H LABS Laboratory Tests 2 03/07/20 16:54: Bedside Glucose (Misc Panel) 206H 03/07/20 21:52: Urine Color YELLOW, Urine Appearance HAZY, Urine pH 5.0, Urine Specific [place] 1.006, Urine Protein NEGATIVE, Urine Glucose (UA) NEGATIVE, Urine Ketones NEGATIVE, Urine Blood 3+H, Urine Nitrite NEGATIVE, Urine Bilirubin NEGATIVE, Urine Urobilinogen 0.2, Urine Leukocyte Esterase TRACEH, Urine WBC (Auto) 2, Urine RBC (Auto) 8H, Urine Hyaline Casts (Auto) 0, Urine Bacteria (Auto) 1+H, Urine Squamous Epithelial Cells 0, Urine Sperm (Auto) , Clostridium difficile 0 [id number] PRESUMPTIVE NEGATIVE, Clostridium difficile Toxin (PCR) NEGATIVE 03/07/20 23:35: Bedside Glucose (Misc Panel) 182H 03/08/20 05:03: Bedside Glucose (Misc Panel) 204H 03/08/20 06:04: Immature Granulocyte % (Auto) 1.1, Neutrophils (%) (Auto) 75.4H, Lymphocytes (%) (Auto) 10.7L, Monocytes (%) (Auto) 11.9H, Eosinophils (%) (Auto) 0.7, Basophils (%) (Auto) 0.2, Neutrophils # (Auto) 6.8, Lymphocytes # (Auto) 1.0L, Monocytes # (Auto) 1.1H, Eosinophils # (Auto) 0.1, Basophils # (Auto) 0.0, Nucleated Red Blood Cells % (auto) 0.0, Anion Gap 4L, Glomerular Filtration Rate > 60.0, Calcium Level 7.9L 03/08/20 12:09: Bedside Glucose (Misc Panel) 215H CBC/BMP Laboratory Tests 03/08/20 06:04 Microbiology Microbiology 03/07/20 Urine Culture, Received Pending Current Medications Current Medications Medications (Trade) Dose Ordered Sig/Ashwin Route PRN Reason Start Time Stop Time Status Last Admin Dose Admin Acetaminophen (Tylenol Suspension) 650 mg Q4HP PRN GT PAIN OR FEVER 03/04/20 07:30 03/08/20 13:51 Acetaminophen (Tylenol Suspension) 650 mg Q4HP PRN NG PAIN OR FEVER 03/03/20 11:30 03/04/20 07:17 DC 03/03/20 17:35 Alvimopan (Entereg) 12 mg BID PO 03/02/20 21:00 03/06/20 13:10 DC 03/05/20 20:31 Atenolol (Tenormin) 25 mg DAILY PO 03/04/20 09:00 03/08/20 08:41 Atorvastatin Calcium (Lipitor) 20 mg DAILY PO 03/01/20 09:00 03/01/20 15:43 DC Atorvastatin Calcium (Lipitor) 20 mg DAILY@2100 PO 03/01/20 21:00 03/03/20 15:47 DC 03/02/20 20:22 Cetylpyridinium Chloride (Cepacol) 1 umu Q1HP PRN PO COUGH 03/01/20 16:30 03/01/20 16:29 Ciprofloxacin 400 mg/IV Miscellaneous Supplies 200 ml @ 200 mls/hr Q12H IV 03/01/20 20:00 03/05/20 10:06 DC 03/05/20 08:15 Dextrose (Dextrose 50%) 25 ml ASDIRECTED PRN IV SEE LABEL COMMENTS 03/01/20 01:00 Dextrose/Sodium Chloride 1,000 ml @ 60 mls/hr [id number] IV 03/05/20 11:00 03/07/20 12:22 DC 03/07/20 01:30 Diatrizoate Meglum/ Diatrizoate Sod (Gastrografin) 10 ml Q30M PO 02/29/20 20:10 02/29/20 20:41 DC 02/29/20 20:31 Enoxaparin Sodium (Lovenox) 40 mg DAILY SC 03/01/20 09:00 03/02/20 15:01 DC 03/01/20 10:55 Enoxaparin Sodium (Lovenox) 60 mg Q12H SC 03/03/20 18:45 03/03/20 18:43 DC Enoxaparin Sodium (Lovenox) 60 mg Q12H SC 03/03/20 20:00 03/08/20 08:45 Fat Emulsion Intravenous 500 ml @ 20 mls/hr ONCE@1800 IV 03/06/20 18:00 03/07/20 17:59 DC 03/06/20 18:59 Fat Emulsion Intravenous 500 ml @ 20 mls/hr ONCE@1800 IV 03/07/20 18:00 03/08/20 17:59 03/07/20 18:44 Fentanyl Citrate (Sublimaze) 25 mcg Q5MP PRN IV PAIN LEVEL 5-10 03/02/20 15:30 03/02/20 16:30 DC 03/02/20 16:10 Furosemide (LASIX injection) 20 mg Q6H IV 03/05/20 11:00 03/05/20 23:01 DC 03/05/20 23:56 Furosemide (LASIX injection) 40 mg Q6H IV 03/06/20 11:00 03/08/20 12:24 Furosemide (LASIX injection) 40 mg Q8H IV 03/04/20 10:00 03/05/20 10:35 DC 03/04/20 18:06 Glucagon (Glucagon) 1 mg ASDIRECTED PRN SC SEE LABEL COMMENTS 03/01/20 01:00 Glucose (Glucose) 16 GM ASDIRECTED PRN PO SEE LABEL COMMENTS 03/01/20 01:00 Heparin Sodium (Heparin (Flush)) 200 units ASDIRECTED PRN IV SEE LABEL COMMENTS 03/06/20 18:00 03/08/20 12:28 Heparin Sodium (Heparin (Flush)) 200 units PICC IV 03/06/20 18:00 03/08/20 06:28 Home Med (Med Rec Complete!) ASDIRECTED XX 03/01/20 00:00 03/01/20 00:02 DC Hydromorphone HCl (Dilaudid) 0.2 mg Q5MP PRN IV PAIN LEVEL 4-7 03/02/20 15:30 03/02/20 16:30 DC 03/02/20 15:36 Insulin Human Lispro (HumaLOG INSULIN) SEE PROTOCOL TABLE Q6H SC 03/01/20 00:00 03/08/20 12:28 Lactated Ringer's 1,000 ml @ 100 mls/hr Q10H IV 03/02/20 15:30 03/02/20 16:30 DC Lactobacillus Acidophilus (Bacid) 1 ea BID PO 03/05/20 09:00 03/08/20 08:41 Lisinopril (Prinivil) 20 mg DAILY PO 03/01/20 09:00 03/08/20 08:41 Magnesium Sulfate/ Dextrose 1 gm/IV Miscellaneous Supplies 100 ml @ 100 mls/hr Q1H IV 03/05/20 17:00 03/05/20 18:59 DC 03/05/20 18:10 Magnesium Sulfate/ Dextrose 1 gm/IV Miscellaneous Supplies 100 ml @ 100 mls/hr Q1H IV 03/05/20 22:00 03/05/20 23:59 DC 03/05/20 23:57 Meropenem 1 gm/IV Miscellaneous Supplies 50 ml @ 100 mls/hr Q8H IV 03/05/20 11:00 03/06/20 10:24 DC 03/06/20 03:31 Meropenem 1 gm/IV Miscellaneous Supplies 50 ml @ 100 mls/hr Q8H IV 03/06/20 13:00 03/13/20 12:59 03/08/20 12:28 Meropenem 500 mg/ IV Miscellaneous Supplies 50 ml @ 100 mls/hr Q8H IV 03/05/20 10:15 03/05/20 10:19 DC Metoprolol Tartrate (Lopressor) 5 mg Q6H IV 03/03/20 20:00 03/04/20 07:22 DC 03/04/20 03:23 Metoprolol Tartrate (Lopressor) 5 mg Q6HP PRN IV HR>100 03/04/20 07:30 Hold Metronidazole 500 mg/IV Miscellaneous Supplies 100 ml @ 100 mls/hr Q8H IV 03/01/20 21:00 03/05/20 10:06 DC 03/05/20 06:12 Morphine Sulfate (Morphine Sulfate Inj) 2 mg Q2HP PRN IV SEVERE PAIN (PS 8-10) 03/02/20 15:00 03/04/20 07:17 DC 03/03/20 12:41 Morphine Sulfate (Morphine Sulfate Inj) 2 mg Q4HP PRN IV SEVERE PAIN (PS 8-10) 03/01/20 06:30 03/01/20 06:35 DC Morphine Sulfate (Morphine Sulfate Inj) 2 mg Q4HP PRN IV SEVERE PAIN (PS 8-10) 03/01/20 06:35 03/02/20 15:01 DC 03/02/20 10:12 Multivitamins 10 ml/Chromium/ Copper/Manganese/ Seleni/Zn 1 ml/ Amino Ac/Electrol/ Dextrose/Calcium 2,011 ml @ 50 mls/hr ONCE@1800 IV 03/06/20 18:00 03/07/20 17:59 DC 03/06/20 18:58 Ondansetron HCl (ZOFRAN INJection) 4 mg Q4HP PRN IV NAUSEA OR VOMITING 03/02/20 09:30 03/05/20 10:34 Ondansetron HCl (ZOFRAN INJection) 4 mg Q4HP PRN IV NAUSEA OR VOMITING 03/02/20 15:30 03/02/20 16:30 DC Ondansetron HCl (ZOFRAN INJection) 4 mg Q8HP PRN IV NAUSEA OR VOMITING 03/01/20 06:30 03/02/20 09:24 DC 03/02/20 05:58 Oxycodone HCl (Roxicodone, Oxyir) 5 mg ASDIRECTED PRN PO PAIN LEVEL 1-4 03/02/20 15:30 03/02/20 16:30 DC Oxycodone HCl (Roxicodone, Oxyir) 5 mg DAILY PRN PO PAIN 03/01/20 00:45 03/08/20 08:40 Phenol (Chloraseptic [place]) 5 spray Q2HP PRN MT SORE THROAT 03/01/20 16:30 03/03/20 17:35 Potassium Chloride 10 meq/ IV Miscellaneous Supplies 100 ml @ 100 mls/hr 0630,0730,0830,0930 IV 03/07/20 06:30 03/07/20 07:50 DC Potassium Chloride 10 meq/ IV Miscellaneous Supplies 100 ml @ 100 mls/hr Q1H IV 03/05/20 05:45 03/05/20 09:44 DC 03/05/20 11:12 Potassium Chloride 10 meq/ IV Miscellaneous Supplies 100 ml @ 100 mls/hr Q1H IV 03/06/20 00:00 03/06/20 03:59 DC 03/06/20 04:40 Potassium Chloride 10 meq/ IV Miscellaneous Supplies 100 ml @ 100 mls/hr Q1H IV 03/07/20 08:00 03/07/20 11:59 DC 03/07/20 11:36 Potassium Chloride 66.7 meq/ Amino Ac/Electrol/ Dextrose/Calcium 2,033.35 ml @ 50 mls/hr ONCE@1800 IV 03/07/20 18:00 03/08/20 17:59 03/07/20 18:44 Potassium Chloride (Micro-K Extencaps) 40 meq Q4H PO 03/05/20 06:00 03/05/20 10:01 Cancel Potassium Chloride (Potassium Chloride Liquid) 40 meq Q4H PO 03/07/20 20:15 03/08/20 00:16 DC 03/07/20 23:50 Simethicone (Mylicon) 120 mg QID PO 03/01/20 21:00 03/02/20 15:02 DC 03/02/20 08:55 Sodium Chloride 1,000 ml @ 150 mls/hr Q6H40M IV 03/01/20 19:15 03/04/20 09:07 DC 03/04/20 07:34 Sodium Chloride 1,000 ml @ 150 mls/hr Q6H40M IV 02/29/20 19:28 03/01/20 19:00 DC 03/01/20 16:33 Sodium Chloride (Saline Lock Flush) 2 ml ASDIRECTED PRN IV SEE LABEL COMMENTS 03/04/20 10:30 03/08/20 14:11 DC Sodium Chloride (Saline Lock Flush) 2 ml SLF IV 03/04/20 14:00 03/08/20 14:11 DC 03/08/20 05:40 Sodium Chloride (Saline Lock Flush) 10 ml ASDIRECTED PRN IV SEE LABEL COMMENTS 03/06/20 18:00 03/08/20 12:28 Sodium Chloride (Saline Lock Flush) 10 ml PICC IV 03/06/20 18:00 03/08/20 05:41 Allergies Coded Allergies: amoxicillin (Unverified Allergy, Unknown, 02/29/20) morphine (Verified Adverse Reaction, Mild, 03/04/20) Teri Miller MD Mar 08, 2020 16:21
[2020-03-08 22:00] VITALS: BP 120/54
[2020-03-08] MEDS: RAMELTEON 8 MG TAB (ROZEREM) PO SCH (22:10)
[2020-03-09] MEDS: ACETAMINOPHEN 325 MG/10.15 ML UDC GT PRN ×2 (04:19→17:36)
[2020-03-09] MEDS: FUROSEMIDE 40MG/4ML VIAL (J1940) IV SCH ×4 (04:25→22:45)
[2020-03-09] MEDS: MEROPENEM INJ 1 GM in IV 1 EA IV SCH ×3 (04:25→20:02)
[2020-03-09] MEDS: SODIUM CHLORIDE 0.9% INJ 10 ML SYR IV SCH ×2 (05:16→17:37)
[2020-03-09 06:00] VITALS: BP 117/58
--- NOTE | 2020-03-09 06:43 | IPN ---
DATE: 03/06/2020 The patient has had a slow return of bowel function and still has a postoperative ileus and still has some mild distention. She has been febrile however and her white count is slowly coming down. It was up over the weekend and now down to 11.9 this morning. She states that she has had some minimal flatus without any bowel movements. She has had some mild nausea without vomiting. Her NG tube has been putting out some clear fluid. Although there is a lot of output, it still appears that she has been drinking a lot of water and it has been coming out the NG tube. She had a chest x-ray that was performed and it was performed given that they were concerned that she might be developing pneumonia given her white count and some minimal shortness of breath. Thus, they found no evidence of pneumonia, but so some fluid in her chest, i.e., pleural effusions and some atelectasis. On her physical exam, her abdomen is softly distended and nontender. Incision is clean, dry without any erythema, drainage or discharge. IMPRESSION AND PLAN: The patient has been several days without food at this point. I do feel a peripherally inserted central line (PICC) line and total parenteral nutrition (TPN) is warranted. I would recommend keeping the NG tube in for now, but it appears that we are making some progress. She said she had a little flatus this morning and I anticipate we are just on the edge of starting to regain bowel function. Will see how she is doing tomorrow and hopefully we will be able to get her NG tube out in the next 24-48 hours. I would recommend continuing her on antibiotics at this time. She does have a bit of fluid on her chest, but also in her abdomen she has a fair bit of fluid. If she has some continued shortness of breath, possible percutaneous drainage of some of the fluid intra-abdominally may be warranted. Will have to see how she looks in the morning and let her white count as well as temperature guide us.
--- NOTE | 2020-03-09 06:46 | IPN ---
DATE: 03/07/2020 The patient overall has made some good progress overnight and actually was started on some total parenteral nutrition (TPN). She looks a little more alert and in general has had three bowel movements this morning and her NG tube is not putting out very much. Thus, will plan on getting rid of this NG tube today. Otherwise. she has had no abdominal pain per se. Some mild cramping. Her white count has come down to 88 today, although this may be partially dilutional given her hematocrit is also diminished. On her physical exam, her abdomen is mildly distended. Some mild discomfort is what she is complaining about, but no true peritoneal signs. No guarding. No rebound. IMPRESSION AND PLAN: The patient has started to regain bowel function. Will discontinue the NG tube, start clear liquids and see how she does with this overnight. Will keep her on TPN for now.
[2020-03-09 06:47] LABS: BASO % 0.2 % (0.0-1.0); EOS # 0.1 10^3/uL (0.0-0.5); EOS % 1.1 % (0.0-3.0); HEMATOCRIT 32.1 % (36.0-47.0); HEMOGLOBIN 10.7 g/dl (12.0-15.5); LYMPH # 1.1 10^3/uL (1.5-5.0); LYMPH % 11.9 % (24.0-44.0); MEAN CORPUSCULAR HEMOGLOBIN 29.5 pg (27.0-33.0); MEAN CORPUSCULAR HGB CONC 33.3 g/dl (32.0-36.5); MEAN CORPUSCULAR VOLUME 88.4 fl (80.0-96.0); MONO % 10.5 % (0.0-5.0); NEUTROPHILS # 6.8 10^3/uL (1.5-8.5); NEUTROPHILS % 74.9 % (36.0-66.0); PLATELET COUNT, AUTOMATED 356 10^3/uL (150-450); RED BLOOD COUNT 3.63 10^6/uL (4.00-5.40); WHITE BLOOD COUNT 9.1 10^3/uL (4.0-10.0)
--- NOTE | 2020-03-09 06:51 | IPN ---
DATE: 03/08/2020 The patient continues to do very well from a GI standpoint. She has been having numerous bowel movements and has had a significant diarrhea, which I am not surprised given her amount of ileus and fluid that was within her bowel intraoperatively. In any case, it appears that she is resolving this ileus. Will advance her diet as tolerated. She has been afebrile and her white count is still normal. Hematocrit has come up a little bit and I think the diuresis is probably helping that to some extent. Otherwise, on her physical exam her abdomen is not significantly distended. She is complaining of more abdominal discomfort, but it almost appears to be more crampy abdominal pain. No peritoneal signs. Again, her incision is clean and dry. IMPRESSION AND PLAN: The patient has evidence of resolution of her ileus/small bowel obstruction. Will advance her diet as tolerated. From a surgical standpoint, will stop her total parenteral nutrition (TPN) given that she is little bit fluid overloaded and thus she would benefit from continued diuresis. We have encouraged her to take by mouth intake and will encourage her to increase her activity over the next several days. She is quite a frail individual and I am wondering if she would benefit from some inpatient rehab prior to transferring/discharging to home. In any case, at this point, supportive care is warranted. Clostridium difficile was obtained yesterday which was negative, just for a reassurance standpoint. It is most likely diarrhea after her ileus has resolved. Although if she has continued ongoing diarrhea, it may be from the small bowel resection that we did, specifically the terminal ileum, and she may benefit from some constipating agents, possibly even some bile salt binders such as cholestyramine, etc., if this is significantly problematic for her. In any case, will see how she does over the ensuing 24-48 hours to determine our next step concerning this issue.
[2020-03-09 07:17] LABS: BLOOD UREA NITROGEN 15 MG/DL (7-18); CALCIUM LEVEL 7.8 MG/DL (8.8-10.2); CARBON DIOXIDE LEVEL 40 MEQ/L (21-32); CHLORIDE LEVEL 92 MEQ/L (98-107); CREATININE FOR GFR 0.54 MG/DL (0.55-1.30); GLOMERULAR FILTRATION RATE > 60.0 (>32); GLUCOSE, FASTING 165 MG/DL (70-100); POTASSIUM SERUM 3.3 MEQ/L (3.5-5.1); SODIUM LEVEL 136 MEQ/L (136-145)
[2020-03-09] MEDS: atenoloL 25 MG TAB PO SCH (09:18)
[2020-03-09] MEDS: LACTOBACILLUS ACIDOPHILUS CAP (BACID) PO SCH ×2 (09:19→20:03)
[2020-03-09] MEDS: ENOXAPARIN 60MG/0.6ML SYRINGE (J1650 PER 10MG) SC SCH ×2 (09:19→20:03)
[2020-03-09] MEDS: oxyCODONE 5MG TAB PO PRN (09:20)
[2020-03-09] MEDS: lisinopriL 20 MG TAB PO SCH (09:20)
[2020-03-09] MEDS: HumaLOG INSULIN (NovoLOG) PER UNIT SC SCH ×4 (09:20→21:00)
[2020-03-09] MEDS: POTASSIUM CHLORIDE 10 MEQ SR TABLET PO SCH ×2 (09:50→20:03)
[2020-03-09 14:00] VITALS: BP 127/62
[2020-03-09] MEDS: traMADol 50 MG TAB PO PRN ×2 (14:56→21:17)
[2020-03-09 17:40] VITALS: BP 113/61
[2020-03-09] MEDS: RAMELTEON 8 MG TAB (ROZEREM) PO SCH (20:03)
--- NOTE | 2020-03-09 20:50 | IPNPDOC ---
Date Seen The patient was seen on 03/09/20. Progress Note SUBJECTIVE: Patient had one episode of diarrhea today, C. diff neg on 03/07/20. Tolerating diet well. TPN stopped. Still on TPN. Patient still has mild abdominal pain, surgery following. Denies chest pain, increased shortness of breath, fevers, chills, n/v. OBJECTIVE: VITAL SIGNS: Please see below PHYSICAL EXAMINATION: CONSTITUTIONAL: No acute distress, resting comfortably, AAO x 3 EYES: PERRLA, EOM intact HENT, MOUTH: Normocephalic, atraumatic, moist mucous membranes NECK: SUPPLE, no JVD, no lymphadenopathy, no carotid bruit CV: Regular rate and rhythm, S1S2 normal, no murmurs/rubs/gallops RESPIRATORY: Clear to auscultation bilaterally, no rales/rhonchi/wheezes GI: Abdominal pain on palpation of RLQ. Incision on abdominal wall appears well healed, nikkie present. BS positive in 4 quadrants, soft, nondistended, no rebound or guarding, no organomegaly : Deferred MUSCULOSKELETAL: Normal ROM. No cyanosis, clubbing, swelling, joint deformity, extremity edema INTEGUMENTARY: Redness on bilateral buttocks, no open sores or ulcers. Intact, no rashes, no lesions NEUROLOGIC: Cranial Nerves II-XII are intact, no focal deficits PSYCHIATRIC: Mood and affect are normal CURRENT MEDICATIONS: Please see below LABORATORY DATA: Please see below IMAGING: No new imaging. ASSESSMENT: 84 y/o F admitted for partial small bowel obstruction s/p ileocolectomy. PLAN: 1. Abdominal pain. Cramping; possibly 2/2 to diarrhea that could be due to recent ileocolectomy or post illeus diarrhea. Surgery states that she may benefit from cholestyramine possibly. F/u surgery recommendations. 2. Acute diastolic congestive heart failure. BNP 2800, f/u repeat in AM. Neg fluid balance. C/w IV lasix Q8H, ACEi, BB. 3. Diarrhea likely due to resolution of ileus vs. recent ileocolectomy. Appears to be slowing down. C. diff neg. Monitor closely with electrolyte changes. 4. Hypokalemia likely 2/2 to lasix administration. STarted on potassium 30 mEq BID. F/u AM labs 5. Deconditioning. Per PT notes, patient would benefit from continued rehab. C/w PT/OT. 6. DVT px. Enoxaparin DISPOSITION: Currently inpatient status. Plan is undetermined for discharge at this time. PT/OT. VS, I&O, 24H, Fishbone Vital Signs/I&O Vital Signs Date Time Temp Pulse Resp B/P (MAP) Pulse Ox O2 Delivery O2 Flow Rate FiO2 03/09/20 17:40 81 113/61 (78) 03/09/20 15:26 18 03/09/20 14:00 98.5 94 Room Air I&O- Last 24 Hours up to 6 AM 03/09/20 06:00 Intake Total 2400 ml Output Total 3275 ml Balance -875 ml Laboratory Data 24H LABS Laboratory Tests 2 03/08/20 21:46: Bedside Glucose (Misc Panel) 103 03/09/20 06:30: Immature Granulocyte % (Auto) 1.4, Neutrophils (%) (Auto) 74.9H, Lymphocytes (%) (Auto) 11.9L, Monocytes (%) (Auto) 10.5H, Eosinophils (%) (Auto) 1.1, Basophils (%) (Auto) 0.2, Neutrophils # (Auto) 6.8, Lymphocytes # (Auto) 1.1L, Monocytes # (Auto) 1.0H, Eosinophils # (Auto) 0.1, Basophils # (Auto) 0.0, Nucleated Red Blood Cells % (auto) 0.0, Anion Gap 4L, Glomerular Filtration Rate > 60.0, Calcium Level 7.8L 03/09/20 11:40: Bedside Glucose (Misc Panel) 183H 03/09/20 16:56: Bedside Glucose (Misc Panel) 111H CBC/BMP Laboratory Tests 03/09/20 06:30 Microbiology Microbiology 03/07/20 Urine Culture - Preliminary, Resulted Yeast Like Organism Current Medications Current Medications Medications (Trade) Dose Ordered Sig/Ashwin Route PRN Reason Start Time Stop Time Status Last Admin Dose Admin Acetaminophen (Tylenol Suspension) 650 mg Q4HP PRN GT PAIN OR FEVER 03/04/20 07:30 03/09/20 17:36 Acetaminophen (Tylenol Suspension) 650 mg Q4HP PRN NG PAIN OR FEVER 03/03/20 11:30 03/04/20 07:17 DC 03/03/20 17:35 Alvimopan (Entereg) 12 mg BID PO 03/02/20 21:00 03/06/20 13:10 DC 03/05/20 20:31 Atenolol (Tenormin) 25 mg DAILY PO 03/04/20 09:00 03/09/20 09:18 Atorvastatin Calcium (Lipitor) 20 mg DAILY PO 03/01/20 09:00 03/01/20 15:43 DC Atorvastatin Calcium (Lipitor) 20 mg DAILY@2100 PO 03/01/20 21:00 03/03/20 15:47 DC 03/02/20 20:22 Cetylpyridinium Chloride (Cepacol) 1 umu Q1HP PRN PO COUGH 03/01/20 16:30 03/01/20 16:29 Ciprofloxacin 400 mg/IV Miscellaneous Supplies 200 ml @ 200 mls/hr Q12H IV 03/01/20 20:00 03/05/20 10:06 DC 03/05/20 08:15 Dextrose (Dextrose 50%) 25 ml ASDIRECTED PRN IV SEE LABEL COMMENTS 03/01/20 01:00 Dextrose/Sodium Chloride 1,000 ml @ 60 mls/hr [id number] IV 03/05/20 11:00 03/07/20 12:22 DC 03/07/20 01:30 Diatrizoate Meglum/ Diatrizoate Sod (Gastrografin) 10 ml Q30M PO 02/29/20 20:10 02/29/20 20:41 DC 02/29/20 20:31 Enoxaparin Sodium (Lovenox) 40 mg DAILY SC 03/01/20 09:00 03/02/20 15:01 DC 03/01/20 10:55 Enoxaparin Sodium (Lovenox) 60 mg Q12H SC 03/03/20 18:45 03/03/20 18:43 DC Enoxaparin Sodium (Lovenox) 60 mg Q12H SC 03/03/20 20:00 03/09/20 20:03 Fat Emulsion Intravenous 500 ml @ 20 mls/hr ONCE@1800 IV 03/06/20 18:00 03/07/20 17:59 DC 03/06/20 18:59 Fat Emulsion Intravenous 500 ml @ 20 mls/hr ONCE@1800 IV 03/07/20 18:00 03/08/20 17:59 DC 03/07/20 18:44 Fentanyl Citrate (Sublimaze) 25 mcg Q5MP PRN IV PAIN LEVEL 5-10 03/02/20 15:30 03/02/20 16:30 DC 03/02/20 16:10 Furosemide (LASIX injection) 20 mg Q6H IV 03/05/20 11:00 03/05/20 23:01 DC 03/05/20 23:56 Furosemide (LASIX injection) 40 mg Q6H IV 03/06/20 11:00 03/09/20 17:36 Furosemide (LASIX injection) 40 mg Q8H IV 03/04/20 10:00 03/05/20 10:35 DC 03/04/20 18:06 Glucagon (Glucagon) 1 mg ASDIRECTED PRN SC SEE LABEL COMMENTS 03/01/20 01:00 Glucose (Glucose) 16 GM ASDIRECTED PRN PO SEE LABEL COMMENTS 03/01/20 01:00 Heparin Sodium (Heparin (Flush)) 200 units ASDIRECTED PRN IV SEE LABEL COMMENTS 03/06/20 18:00 03/09/20 21:05 Heparin Sodium (Heparin (Flush)) 200 units PICC IV 03/06/20 18:00 03/09/20 17:37 Home Med (Med Rec Complete!) ASDIRECTED XX 03/01/20 00:00 03/01/20 00:02 DC Hydromorphone HCl (Dilaudid) 0.2 mg Q5MP PRN IV PAIN LEVEL 4-7 03/02/20 15:30 03/02/20 16:30 DC 03/02/20 15:36 Insulin Detemir (Levemir Insulin) 8 units QAM SC 03/08/20 09:00 03/08/20 17:19 DC Insulin Human Lispro (HumaLOG INSULIN) SEE PROTOCOL TABLE AC SC 03/08/20 17:30 03/09/20 17:37 Insulin Human Lispro (HumaLOG INSULIN) SEE PROTOCOL TABLE Q6H SC 03/01/20 00:00 03/08/20 17:19 DC 03/08/20 12:28 Insulin Human Lispro (HumaLOG INSULIN) SEE PROTOCOL TABLE QHS SC 03/08/20 21:00 Lactated Ringer's 1,000 ml @ 100 mls/hr Q10H IV 03/02/20 15:30 03/02/20 16:30 DC Lactobacillus Acidophilus (Bacid) 1 ea BID PO 03/05/20 09:00 03/09/20 20:03 Lisinopril (Prinivil) 20 mg DAILY PO 03/01/20 09:00 03/09/20 09:20 Magnesium Sulfate/ Dextrose 1 gm/IV Miscellaneous Supplies 100 ml @ 100 mls/hr Q1H IV 03/05/20 17:00 03/05/20 18:59 DC 03/05/20 18:10 Magnesium Sulfate/ Dextrose 1 gm/IV Miscellaneous Supplies 100 ml @ 100 mls/hr Q1H IV 03/05/20 22:00 03/05/20 23:59 DC 03/05/20 23:57 Meropenem 1 gm/IV Miscellaneous Supplies 50 ml @ 100 mls/hr Q8H IV 03/05/20 11:00 03/06/20 10:24 DC 03/06/20 03:31 Meropenem 1 gm/IV Miscellaneous Supplies 50 ml @ 100 mls/hr Q8H IV 03/06/20 13:00 03/13/20 12:59 03/09/20 20:02 Meropenem 500 mg/ IV Miscellaneous Supplies 50 ml @ 100 mls/hr Q8H IV 03/05/20 10:15 03/05/20 10:19 DC Metoprolol Tartrate (Lopressor) 5 mg Q6H IV 03/03/20 20:00 03/04/20 07:22 DC 03/04/20 03:23 Metoprolol Tartrate (Lopressor) 5 mg Q6HP PRN IV HR>100 03/04/20 07:30 Hold Metronidazole 500 mg/IV Miscellaneous Supplies 100 ml @ 100 mls/hr Q8H IV 03/01/20 21:00 03/05/20 10:06 DC 03/05/20 06:12 Morphine Sulfate (Morphine Sulfate Inj) 2 mg Q2HP PRN IV SEVERE PAIN (PS 8-10) 03/02/20 15:00 03/04/20 07:17 DC 03/03/20 12:41 Morphine Sulfate (Morphine Sulfate Inj) 2 mg Q4HP PRN IV SEVERE PAIN (PS 8-10) 03/01/20 06:30 03/01/20 06:35 DC Morphine Sulfate (Morphine Sulfate Inj) 2 mg Q4HP PRN IV SEVERE PAIN (PS 8-10) 03/01/20 06:35 03/02/20 15:01 DC 03/02/20 10:12 Multivitamins 10 ml/Chromium/ Copper/Manganese/ Seleni/Zn 1 ml/ Amino Ac/Electrol/ Dextrose/Calcium 2,011 ml @ 50 mls/hr ONCE@1800 IV 03/06/20 18:00 03/07/20 17:59 DC 03/06/20 18:58 Ondansetron HCl (ZOFRAN INJection) 4 mg Q4HP PRN IV NAUSEA OR VOMITING 03/02/20 09:30 03/05/20 10:34 Ondansetron HCl (ZOFRAN INJection) 4 mg Q4HP PRN IV NAUSEA OR VOMITING 03/02/20 15:30 03/02/20 16:30 DC Ondansetron HCl (ZOFRAN INJection) 4 mg Q8HP PRN IV NAUSEA OR VOMITING 03/01/20 06:30 03/02/20 09:24 DC 03/02/20 05:58 Oxycodone HCl (Roxicodone, Oxyir) 5 mg ASDIRECTED PRN PO PAIN LEVEL 1-4 03/02/20 15:30 03/02/20 16:30 DC Oxycodone HCl (Roxicodone, Oxyir) 5 mg DAILY PRN PO PAIN 03/01/20 00:45 03/09/20 09:20 Phenol (Chloraseptic [place]) 5 spray Q2HP PRN MT SORE THROAT 03/01/20 16:30 03/03/20 17:35 Potassium Chloride 10 meq/ IV Miscellaneous Supplies 100 ml @ 100 mls/hr 0630,0730,0830,0930 IV 03/07/20 06:30 03/07/20 07:50 DC Potassium Chloride 10 meq/ IV Miscellaneous Supplies 100 ml @ 100 mls/hr Q1H IV 03/05/20 05:45 03/05/20 09:44 DC 03/05/20 11:12 Potassium Chloride 10 meq/ IV Miscellaneous Supplies 100 ml @ 100 mls/hr Q1H IV 03/06/20 00:00 03/06/20 03:59 DC 03/06/20 04:40 Potassium Chloride 10 meq/ IV Miscellaneous Supplies 100 ml @ 100 mls/hr Q1H IV 03/07/20 08:00 03/07/20 11:59 DC 03/07/20 11:36 Potassium Chloride 66.7 meq/ Amino Ac/Electrol/ Dextrose/Calcium 2,033.35 ml @ 50 mls/hr ONCE@1800 IV 03/07/20 18:00 03/08/20 17:59 DC 03/07/20 18:44 Potassium Chloride (Micro-K Extencaps) 30 meq BID PO 03/09/20 09:00 03/09/20 20:03 Potassium Chloride (Micro-K Extencaps) 40 meq Q4H PO 03/05/20 06:00 03/05/20 10:01 Cancel Potassium Chloride (Potassium Chloride Liquid) 40 meq Q4H PO 03/07/20 20:15 03/08/20 00:16 DC 03/07/20 23:50 Ramelteon (Rozerem) 8 mg QHS PO 03/08/20 22:00 03/09/20 20:03 Simethicone (Mylicon) 120 mg QID PO 03/01/20 21:00 03/02/20 15:02 DC 03/02/20 08:55 Sodium Chloride 1,000 ml @ 150 mls/hr Q6H40M IV 03/01/20 19:15 03/04/20 09:07 DC 03/04/20 07:34 Sodium Chloride 1,000 ml @ 150 mls/hr Q6H40M IV 02/29/20 19:28 03/01/20 19:00 DC 03/01/20 16:33 Sodium Chloride (Saline Lock Flush) 2 ml ASDIRECTED PRN IV SEE LABEL COMMENTS 03/04/20 10:30 03/08/20 14:11 DC Sodium Chloride (Saline Lock Flush) 2 ml SLF IV 03/04/20 14:00 03/08/20 14:11 DC 03/08/20 05:40 Sodium Chloride (Saline Lock Flush) 10 ml ASDIRECTED PRN IV SEE LABEL COMMENTS 03/06/20 18:00 03/09/20 21:05 Sodium Chloride (Saline Lock Flush) 10 ml PICC IV 03/06/20 18:00 03/09/20 17:37 Tramadol HCl (Ultram) 50 mg Q6HP PRN PO MODERATE PAIN (PS 5-7) 03/09/20 14:45 03/09/20 21:17 Allergies Coded Allergies: amoxicillin (Unverified Allergy, Unknown, 02/29/20) morphine (Verified Adverse Reaction, Mild, 03/04/20) Teri Miller MD Mar 09, 2020 20:50
[2020-03-09] MEDS: SODIUM CHLORIDE 0.9% INJ 10 ML SYR IV PRN (21:05)
[2020-03-09 22:00] VITALS: BP 110/58
[2020-03-09 22:45] VITALS: BP 108/58
[2020-03-10] MEDS: FUROSEMIDE 40MG/4ML VIAL (J1940) IV SCH ×4 (05:00→23:00)
[2020-03-10 05:15] VITALS: BP 108/65
[2020-03-10] MEDS: MEROPENEM INJ 1 GM in IV 1 EA IV SCH (05:16)
[2020-03-10] MEDS: traMADol 50 MG TAB PO PRN ×3 (05:17→18:08)
[2020-03-10] MEDS: SODIUM CHLORIDE 0.9% INJ 10 ML SYR IV SCH ×2 (05:18→17:52)
[2020-03-10 06:00] VITALS: BP 108/65
[2020-03-10 06:12] LABS: BASO % 0.2 % (0.0-1.0); EOS # 0.2 10^3/uL (0.0-0.5); EOS % 1.7 % (0.0-3.0); HEMOGLOBIN 10.7 g/dl (12.0-15.5); LYMPH # 1.4 10^3/uL (1.5-5.0); LYMPH % 14.5 % (24.0-44.0); MEAN CORPUSCULAR HGB CONC 33.4 g/dl (32.0-36.5); MEAN CORPUSCULAR VOLUME 89.6 fl (80.0-96.0); MONO # 0.9 10^3/uL (0.0-0.8); MONO % 9.1 % (0.0-5.0); NEUTROPHILS # 7.1 10^3/uL (1.5-8.5); NEUTROPHILS % 73.3 % (36.0-66.0); PLATELET COUNT, AUTOMATED 401 10^3/uL (150-450); RED BLOOD COUNT 3.57 10^6/uL (4.00-5.40); WHITE BLOOD COUNT 9.7 10^3/uL (4.0-10.0)
[2020-03-10 06:36] LABS: BLOOD UREA NITROGEN 14 MG/DL (7-18); CARBON DIOXIDE LEVEL 40 MEQ/L (21-32); CHLORIDE LEVEL 93 MEQ/L (98-107); CREATININE FOR GFR 0.49 MG/DL (0.55-1.30); GLOMERULAR FILTRATION RATE > 60.0 (>32); GLUCOSE, FASTING 137 MG/DL (70-100); POTASSIUM SERUM 3.7 MEQ/L (3.5-5.1); SODIUM LEVEL 139 MEQ/L (136-145)
[2020-03-10] MEDS: POTASSIUM CHLORIDE 10 MEQ SR TABLET PO SCH ×2 (08:57→20:02)
[2020-03-10] MEDS: ENOXAPARIN 60MG/0.6ML SYRINGE (J1650 PER 10MG) SC SCH ×2 (08:57→20:02)
[2020-03-10] MEDS: LACTOBACILLUS ACIDOPHILUS CAP (BACID) PO SCH ×4 (08:57→20:02)
[2020-03-10] MEDS: HumaLOG INSULIN (NovoLOG) PER UNIT SC SCH ×4 (08:59→20:02)
[2020-03-10] MEDS: oxyCODONE 5MG TAB PO PRN (09:00)
[2020-03-10] MEDS: atenoloL 25 MG TAB PO SCH (09:00)
[2020-03-10] MEDS: lisinopriL 20 MG TAB PO SCH (09:00)
[2020-03-10] MEDS: ACETAMINOPHEN 325 MG/10.15 ML UDC GT PRN (10:44)
[2020-03-10] MEDS ORDERED: DIAPER RELIEF PASTE (DESITIN) 60GM TOP PRN (11:00)
[2020-03-10] MEDS ORDERED: LOPERAMIDE 2 MG CAPLET PO ONE (11:00)
--- NOTE | 2020-03-10 13:45 | IPN ---
DATE: 03/10/2020 The patient still continues have some diarrhea. It is not as bad as it was beforehand over the last couple days but still quite severe and she has a lot crampy abdominal pain. She has had no nausea but she has had a relatively poor oral intake. She has not had any fevers and her white count is still normal. Hematocrit has been stable and otherwise, urine output has been good as well. Her abdomen is softly distended. She is mildly uncomfortable throughout her abdomen and this really has not changed all that much she states over the last 24 hours. At this point, I do feel that it is reasonable to have her continue with her regular diet and I have started some Imodium on her. I have increased her probiotics to four times a day and will see how she does with the Imodium in place. Right now it is as needed, but if we noticed that she is using a specific amount per day a scheduled amount may work better for her. Once again, we will see how she does over the next 24 hours concerning this issue.
[2020-03-10 14:00] VITALS: BP 106/69
--- NOTE | 2020-03-10 14:04 | IPNPDOC ---
Date Seen The patient was seen on 03/10/20. Progress Note SUBJECTIVE: Decreased abd pain and diarrhea with immodium. Pain appears better controlled with adjusted pain regimen also. Per surgery, c/w current diet and probiotics increased to QID. Sitting up in bed and appears much more comfortable on exam. Denies chest pain, increased shortness of breath, fevers, chills, n/v. OBJECTIVE: VITAL SIGNS: Please see below PHYSICAL EXAMINATION: CONSTITUTIONAL: No acute distress, resting comfortably, AAO x 3 EYES: PERRLA, EOM intact HENT, MOUTH: Normocephalic, atraumatic, moist mucous membranes NECK: SUPPLE, no JVD, no lymphadenopathy, no carotid bruit CV: Regular rate and rhythm, S1S2 normal, no murmurs/rubs/gallops RESPIRATORY: Clear to auscultation bilaterally, no rales/rhonchi/wheezes GI: mild abdominal pain on palpation of RLQ- improved from 03/09/20. Incision on abdominal wall appears well healed, nikkie present. BS positive in 4 quadrants, soft, nondistended, no rebound or guarding, no organomegaly : Deferred MUSCULOSKELETAL: Normal ROM. No cyanosis, clubbing, swelling, joint deformity, extremity edema INTEGUMENTARY: Redness on bilateral buttocks, no open sores or ulcers. Intact, no rashes, no lesions NEUROLOGIC: Cranial Nerves II-XII are intact, no focal deficits PSYCHIATRIC: flat affect CURRENT MEDICATIONS: Please see below LABORATORY DATA: Please see below IMAGING: No new imaging. ASSESSMENT: 84 y/o F admitted for partial small bowel obstruction s/p ileocolectomy. PLAN: 1. Abdominal pain. Cramping; possibly 2/2 to diarrhea that could be due to recent ileocolectomy or post illeus diarrhea. Improved slightly with immodium and after tramadol. Surgery following closely. 2. Acute diastolic congestive heart failure. Neg fluid balance still, edema improving. C/w IV lasix Q8H, ACEi, BB. 3. Diarrhea likely due to resolution of ileus vs. recent ileocolectomy. Improved since 03/09/20, immodium added by surgery. C. diff neg. Monitor closely with electrolyte changes. Encourage PO intake of fluids. 4. Hypokalemia likely 2/2 to lasix administration. Resolved. F/u AM labs 5. Deconditioning. Per PT notes, patient would benefit from continued rehab. C/w PT/OT. 6. DVT px. Enoxaparin DISPOSITION: Currently inpatient status. Plan is undetermined for discharge at this time. PT/OT. VS, I&O, 24H, Fishbone Vital Signs/I&O Vital Signs Date Time Temp Pulse Resp B/P (MAP) Pulse Ox O2 Delivery O2 Flow Rate FiO2 03/10/20 12:33 18 03/10/20 09:00 82 119/64 03/10/20 06:00 98.1 98 Room Air I&O- Last 24 Hours up to 6 AM 03/10/20 06:00 Intake Total 650 ml Output Total 650 ml Balance 0 ml Laboratory Data 24H LABS Laboratory Tests 2 03/09/20 16:56: Bedside Glucose (Misc Panel) 111H 03/09/20 21:15: Bedside Glucose (Misc Panel) 174H 03/10/20 05:30: Immature Granulocyte % (Auto) 1.2, Neutrophils (%) (Auto) 73.3H, Lymphocytes (%) (Auto) 14.5L, Monocytes (%) (Auto) 9.1H, Eosinophils (%) (Auto) 1.7, Basophils (%) (Auto) 0.2, Neutrophils # (Auto) 7.1, Lymphocytes # (Auto) 1.4L, Monocytes # (Auto) 0.9H, Eosinophils # (Auto) 0.2, Basophils # (Auto) 0.0, Nucleated Red Blood Cells % (auto) 0.0, Anion Gap 6L, Glomerular Filtration Rate > 60.0, Calcium Level 8.0L 03/10/20 11:33: Bedside Glucose (Misc Panel) 159H CBC/BMP Laboratory Tests 03/10/20 05:30 Microbiology Microbiology 03/07/20 Urine Culture - Final, Complete Enterococcus Faecium Yeast Like Organism Current Medications Current Medications Medications (Trade) Dose Ordered Sig/Ashwin Route PRN Reason Start Time Stop Time Status Last Admin Dose Admin Acetaminophen (Tylenol Suspension) 650 mg Q4HP PRN GT PAIN OR FEVER 03/04/20 07:30 03/10/20 10:44 Acetaminophen (Tylenol Suspension) 650 mg Q4HP PRN NG PAIN OR FEVER 03/03/20 11:30 03/04/20 07:17 DC 03/03/20 17:35 Alvimopan (Entereg) 12 mg BID PO 03/02/20 21:00 03/06/20 13:10 DC 03/05/20 20:31 Atenolol (Tenormin) 25 mg DAILY PO 03/04/20 09:00 03/10/20 09:00 Atorvastatin Calcium (Lipitor) 20 mg DAILY PO 03/01/20 09:00 03/01/20 15:43 DC Atorvastatin Calcium (Lipitor) 20 mg DAILY@2100 PO 03/01/20 21:00 03/03/20 15:47 DC 03/02/20 20:22 Cetylpyridinium Chloride (Cepacol) 1 umu Q1HP PRN PO COUGH 03/01/20 16:30 03/01/20 16:29 Ciprofloxacin 400 mg/IV Miscellaneous Supplies 200 ml @ 200 mls/hr Q12H IV 03/01/20 20:00 03/05/20 10:06 DC 03/05/20 08:15 Cod Liver Oil/ Zinc Oxide (Desitin) APPLY TO BUTTOCKS TIDP PRN TOP DISCOMFORT 03/10/20 11:00 Dextrose (Dextrose 50%) 25 ml ASDIRECTED PRN IV SEE LABEL COMMENTS 03/01/20 01:00 Dextrose/Sodium Chloride 1,000 ml @ 60 mls/hr [id number] IV 03/05/20 11:00 03/07/20 12:22 DC 03/07/20 01:30 Diatrizoate Meglum/ Diatrizoate Sod (Gastrografin) 10 ml Q30M PO 02/29/20 20:10 02/29/20 20:41 DC 02/29/20 20:31 Enoxaparin Sodium (Lovenox) 40 mg DAILY SC 03/01/20 09:00 03/02/20 15:01 DC 03/01/20 10:55 Enoxaparin Sodium (Lovenox) 60 mg Q12H SC 03/03/20 18:45 03/03/20 18:43 DC Enoxaparin Sodium (Lovenox) 60 mg Q12H SC 03/03/20 20:00 03/10/20 08:57 Fat Emulsion Intravenous 500 ml @ 20 mls/hr ONCE@1800 IV 03/06/20 18:00 03/07/20 17:59 DC 03/06/20 18:59 Fat Emulsion Intravenous 500 ml @ 20 mls/hr ONCE@1800 IV 03/07/20 18:00 03/08/20 17:59 DC 03/07/20 18:44 Fentanyl Citrate (Sublimaze) 25 mcg Q5MP PRN IV PAIN LEVEL 5-10 03/02/20 15:30 03/02/20 16:30 DC 03/02/20 16:10 Furosemide (LASIX injection) 20 mg Q6H IV 03/05/20 11:00 03/05/20 23:01 DC 03/05/20 23:56 Furosemide (LASIX injection) 40 mg Q6H IV 03/06/20 11:00 03/10/20 10:43 Furosemide (LASIX injection) 40 mg Q8H IV 03/04/20 10:00 03/05/20 10:35 DC 03/04/20 18:06 Glucagon (Glucagon) 1 mg ASDIRECTED PRN SC SEE LABEL COMMENTS 03/01/20 01:00 Glucose (Glucose) 16 GM ASDIRECTED PRN PO SEE LABEL COMMENTS 03/01/20 01:00 Heparin Sodium (Heparin (Flush)) 200 units ASDIRECTED PRN IV SEE LABEL COMMENTS 03/06/20 18:00 03/09/20 21:05 Heparin Sodium (Heparin (Flush)) 200 units PICC IV 03/06/20 18:00 03/10/20 05:18 Home Med (Med Rec Complete!) ASDIRECTED XX 03/01/20 00:00 03/01/20 00:02 DC Hydromorphone HCl (Dilaudid) 0.2 mg Q5MP PRN IV PAIN LEVEL 4-7 03/02/20 15:30 03/02/20 16:30 DC 03/02/20 15:36 Insulin Detemir (Levemir Insulin) 8 units QAM SC 03/08/20 09:00 03/08/20 17:19 DC Insulin Human Lispro (HumaLOG INSULIN) SEE PROTOCOL TABLE AC SC 03/08/20 17:30 03/10/20 12:05 Insulin Human Lispro (HumaLOG INSULIN) SEE PROTOCOL TABLE Q6H SC 03/01/20 00:00 03/08/20 17:19 DC 03/08/20 12:28 Insulin Human Lispro (HumaLOG INSULIN) SEE PROTOCOL TABLE QHS SC 03/08/20 21:00 Lactated Ringer's 1,000 ml @ 100 mls/hr Q10H IV 03/02/20 15:30 03/02/20 16:30 DC Lactobacillus Acidophilus (Bacid) 1 ea BID PO 03/05/20 09:00 03/10/20 12:00 DC 03/10/20 08:57 Lactobacillus Acidophilus (Bacid) 1 ea WMHS PO 03/10/20 12:30 03/10/20 12:07 Lisinopril (Prinivil) 20 mg DAILY PO 03/01/20 09:00 03/10/20 09:00 Loperamide HCl (Imodium) 2 mg ASDIRECTED PRN PO DIARRHEA 03/10/20 11:00 Magnesium Sulfate/ Dextrose 1 gm/IV Miscellaneous Supplies 100 ml @ 100 mls/hr Q1H IV 03/05/20 17:00 03/05/20 18:59 DC 03/05/20 18:10 Magnesium Sulfate/ Dextrose 1 gm/IV Miscellaneous Supplies 100 ml @ 100 mls/hr Q1H IV 03/05/20 22:00 03/05/20 23:59 DC 03/05/20 23:57 Meropenem 1 gm/IV Miscellaneous Supplies 50 ml @ 100 mls/hr Q8H IV 03/05/20 11:00 03/06/20 10:24 DC 03/06/20 03:31 Meropenem 1 gm/IV Miscellaneous Supplies 50 ml @ 100 mls/hr Q8H IV 03/06/20 13:00 03/10/20 08:53 DC 03/10/20 05:16 Meropenem 500 mg/ IV Miscellaneous Supplies 50 ml @ 100 mls/hr Q8H IV 03/05/20 10:15 03/05/20 10:19 DC Metoprolol Tartrate (Lopressor) 5 mg Q6H IV 03/03/20 20:00 03/04/20 07:22 DC 03/04/20 03:23 Metoprolol Tartrate (Lopressor) 5 mg Q6HP PRN IV HR>100 03/04/20 07:30 Hold Metronidazole 500 mg/IV Miscellaneous Supplies 100 ml @ 100 mls/hr Q8H IV 03/01/20 21:00 03/05/20 10:06 DC 03/05/20 06:12 Morphine Sulfate (Morphine Sulfate Inj) 2 mg Q2HP PRN IV SEVERE PAIN (PS 8-10) 03/02/20 15:00 03/04/20 07:17 DC 03/03/20 12:41 Morphine Sulfate (Morphine Sulfate Inj) 2 mg Q4HP PRN IV SEVERE PAIN (PS 8-10) 03/01/20 06:30 03/01/20 06:35 DC Morphine Sulfate (Morphine Sulfate Inj) 2 mg Q4HP PRN IV SEVERE PAIN (PS 8-10) 03/01/20 06:35 03/02/20 15:01 DC 03/02/20 10:12 Multivitamins 10 ml/Chromium/ Copper/Manganese/ Seleni/Zn 1 ml/ Amino Ac/Electrol/ Dextrose/Calcium 2,011 ml @ 50 mls/hr ONCE@1800 IV 03/06/20 18:00 03/07/20 17:59 DC 03/06/20 18:58 Ondansetron HCl (ZOFRAN INJection) 4 mg Q4HP PRN IV NAUSEA OR VOMITING 03/02/20 09:30 03/05/20 10:34 Ondansetron HCl (ZOFRAN INJection) 4 mg Q4HP PRN IV NAUSEA OR VOMITING 03/02/20 15:30 03/02/20 16:30 DC Ondansetron HCl (ZOFRAN INJection) 4 mg Q8HP PRN IV NAUSEA OR VOMITING 03/01/20 06:30 03/02/20 09:24 DC 03/02/20 05:58 Oxycodone HCl (Roxicodone, Oxyir) 5 mg ASDIRECTED PRN PO PAIN LEVEL 1-4 03/02/20 15:30 03/02/20 16:30 DC Oxycodone HCl (Roxicodone, Oxyir) 5 mg DAILY PRN PO PAIN 03/01/20 00:45 03/10/20 09:00 Phenol (Chloraseptic [place]) 5 spray Q2HP PRN MT SORE THROAT 03/01/20 16:30 03/03/20 17:35 Potassium Chloride 10 meq/ IV Miscellaneous Supplies 100 ml @ 100 mls/hr 0630,0730,0830,0930 IV 03/07/20 06:30 03/07/20 07:50 DC Potassium Chloride 10 meq/ IV Miscellaneous Supplies 100 ml @ 100 mls/hr Q1H IV 03/05/20 05:45 03/05/20 09:44 DC 03/05/20 11:12 Potassium Chloride 10 meq/ IV Miscellaneous Supplies 100 ml @ 100 mls/hr Q1H IV 03/06/20 00:00 03/06/20 03:59 DC 03/06/20 04:40 Potassium Chloride 10 meq/ IV Miscellaneous Supplies 100 ml @ 100 mls/hr Q1H IV 03/07/20 08:00 03/07/20 11:59 DC 03/07/20 11:36 Potassium Chloride 66.7 meq/ Amino Ac/Electrol/ Dextrose/Calcium 2,033.35 ml @ 50 mls/hr ONCE@1800 IV 03/07/20 18:00 03/08/20 17:59 DC 03/07/20 18:44 Potassium Chloride (Micro-K Extencaps) 30 meq BID PO 03/09/20 09:00 03/10/20 08:57 Potassium Chloride (Micro-K Extencaps) 40 meq Q4H PO 03/05/20 06:00 03/05/20 10:01 Cancel Potassium Chloride (Potassium Chloride Liquid) 40 meq Q4H PO 03/07/20 20:15 03/08/20 00:16 DC 03/07/20 23:50 Ramelteon (Rozerem) 8 mg QHS PO 03/08/20 22:00 03/09/20 20:03 Simethicone (Mylicon) 120 mg QID PO 03/01/20 21:00 03/02/20 15:02 DC 03/02/20 08:55 Sodium Chloride 1,000 ml @ 150 mls/hr Q6H40M IV 03/01/20 19:15 03/04/20 09:07 DC 03/04/20 07:34 Sodium Chloride 1,000 ml @ 150 mls/hr Q6H40M IV 02/29/20 19:28 03/01/20 19:00 DC 03/01/20 16:33 Sodium Chloride (Saline Lock Flush) 2 ml ASDIRECTED PRN IV SEE LABEL COMMENTS 03/04/20 10:30 03/08/20 14:11 DC Sodium Chloride (Saline Lock Flush) 2 ml SLF IV 03/04/20 14:00 03/08/20 14:11 DC 03/08/20 05:40 Sodium Chloride (Saline Lock Flush) 10 ml ASDIRECTED PRN IV SEE LABEL COMMENTS 03/06/20 18:00 03/09/20 21:05 Sodium Chloride (Saline Lock Flush) 10 ml PICC IV 03/06/20 18:00 03/10/20 05:18 Tramadol HCl (Ultram) 50 mg Q6HP PRN PO MODERATE PAIN (PS 5-7) 03/09/20 14:45 03/10/20 12:03 Allergies Coded Allergies: amoxicillin (Unverified Allergy, Unknown, 02/29/20) morphine (Verified Adverse Reaction, Mild, 03/04/20) Teri Miller MD Mar 10, 2020 14:04
[2020-03-10 15:39] LABS: APPEARANCE, URINE CLEAR (CLEAR); BACTERIA, URINE AUTO NEGATIVE (NEGATIVE); BILIRUBIN, URINE AUTO NEGATIVE (NEGATIVE); BLOOD, URINE BLOOD NEGATIVE (NEGATIVE); COLOR, URINE YELLOW (YELLOW); GLUCOSE, URINE (UA) AUTO 1+ mg/dL (NEGATIVE); KETONE, URINE AUTO NEGATIVE (NEGATIVE); LEUKOCYTE ESTERASE, URINE AUTO NEGATIVE (NEGATIVE); NITRITE, URINE AUTO NEGATIVE (NEGATIVE); PROTEIN, URINE AUTO NEGATIVE (NEGATIVE); RBC, URINE AUTO 0 /HPF (0-3); SPECIFIC GRAVITY URINE AUTO 1.011 (1.002-1.035); SQUAMOUS EPITHELIAL CELL UR AU 1 /HPF (0-6); UROBILINOGEN, URINE AUTO 0.2 mg/dL (0.0-2.0); WBC, URINE AUTO 2 /HPF (0-3)
[2020-03-10 17:30] VITALS: BP 116/66
[2020-03-10] MEDS: LOPERAMIDE 2 MG CAPLET PO PRN (17:51)
[2020-03-10] MEDS: RAMELTEON 8 MG TAB (ROZEREM) PO SCH (20:02)
[2020-03-10] MEDS: CHOLESTYRAMINE 4 GM PWD PKT PO SCH (21:20)
[2020-03-10 22:00] VITALS: BP 116/59
[2020-03-10 23:16] VITALS: BP 109/59
[2020-03-11] MEDS: traMADol 50 MG TAB PO PRN ×2 (02:26→17:33)
[2020-03-11] MEDS: FUROSEMIDE 40MG/4ML VIAL (J1940) IV SCH ×5 (05:00→23:01)
[2020-03-11] MEDS: SODIUM CHLORIDE 0.9% INJ 10 ML SYR IV SCH ×2 (05:23→17:27)
[2020-03-11 06:00] VITALS: BP_SYST 108; BP_SYST 137; BP_DIAS 59; BP_DIAS 68
[2020-03-11 06:37] LABS: BASO % 0.1 % (0.0-1.0); EOS # 0.1 10^3/uL (0.0-0.5); EOS % 1.4 % (0.0-3.0); HEMATOCRIT 30.5 % (36.0-47.0); HEMOGLOBIN 10.2 g/dl (12.0-15.5); LYMPH # 1.4 10^3/uL (1.5-5.0); LYMPH % 15.4 % (24.0-44.0); MEAN CORPUSCULAR HEMOGLOBIN 30.2 pg (27.0-33.0); MEAN CORPUSCULAR HGB CONC 33.4 g/dl (32.0-36.5); MEAN CORPUSCULAR VOLUME 90.2 fl (80.0-96.0); MONO # 0.7 10^3/uL (0.0-0.8); MONO % 7.7 % (0.0-5.0); NEUTROPHILS # 6.6 10^3/uL (1.5-8.5); NEUTROPHILS % 74.7 % (36.0-66.0); PLATELET COUNT, AUTOMATED 405 10^3/uL (150-450); RED BLOOD COUNT 3.38 10^6/uL (4.00-5.40); WHITE BLOOD COUNT 8.9 10^3/uL (4.0-10.0)
[2020-03-11 07:04] LABS: BLOOD UREA NITROGEN 12 MG/DL (7-18); CALCIUM LEVEL 8.1 MG/DL (8.8-10.2); CARBON DIOXIDE LEVEL 39 MEQ/L (21-32); CHLORIDE LEVEL 94 MEQ/L (98-107); CREATININE FOR GFR 0.42 MG/DL (0.55-1.30); GLOMERULAR FILTRATION RATE > 60.0 (>32); GLUCOSE, FASTING 125 MG/DL (70-100); MAGNESIUM LEVEL 1.3 MG/DL (1.8-2.4); NT-PRO BNP 656 PG/ML (<450); PHOSPHORUS LEVEL 2.5 MG/DL (2.5-4.9); SODIUM LEVEL 138 MEQ/L (136-145)
[2020-03-11] MEDS: oxyCODONE 5MG TAB PO PRN (08:11)
[2020-03-11] MEDS: HumaLOG INSULIN (NovoLOG) PER UNIT SC SCH ×4 (08:14→20:01)
[2020-03-11] MEDS: CHOLESTYRAMINE 4 GM PWD PKT PO SCH ×4 (08:14→21:39)
[2020-03-11] MEDS ORDERED: MAG SULF 1GM/100ML (MAG RUN) 1 GM in IV 1 EA IV ONE ×2 (10:00→20:00)
[2020-03-11] MEDS: ENOXAPARIN 60MG/0.6ML SYRINGE (J1650 PER 10MG) SC SCH ×2 (10:46→19:55)
[2020-03-11] MEDS: LOPERAMIDE 2 MG CAPLET PO PRN ×3 (10:46→17:32)
[2020-03-11] MEDS: atenoloL 25 MG TAB PO SCH (10:47)
[2020-03-11] MEDS: LACTOBACILLUS ACIDOPHILUS CAP (BACID) PO SCH ×4 (10:47→20:01)
[2020-03-11] MEDS: lisinopriL 20 MG TAB PO SCH (10:47)
[2020-03-11] MEDS: POTASSIUM CHLORIDE 10 MEQ SR TABLET PO SCH ×2 (10:50→20:00)
[2020-03-11] MEDS: SODIUM CHLORIDE 0.9% INJ 10 ML SYR IV PRN ×2 (12:23→23:05)
--- NOTE | 2020-03-11 13:58 | REP ---
KUB: TWO VIEWS. HISTORY: Abdomen pain and diarrhea. COMPARISON STUDY: March 04, 2020 FINDINGS: Anterior skin nikkie are again noted. There are air-filled loops of small and large bowel without small or large bowel dilation. There are scattered surgical clips and sutures in the abdomen. Vascular calcifications noted. There is a levoconvex curve and lumbar spondylosis changes are noted. IMPRESSION: Persistent small bowel air-filled loops in the central abdomen without dilation. Surgical clips and sutures and nikkie in the abdomen. Small bowel loops are improved in size from the March 04, 2020 study. Electronically Signed by Nick Pena MD 03/11/2020 02:04 P
[2020-03-11 14:00] VITALS: BP 128/68
[2020-03-11] MEDS ORDERED: LOPERAMIDE 2 MG CAPLET PO PRN (18:15)
--- NOTE | 2020-03-11 18:17 | IPNPDOC ---
Date Seen The patient was seen on 03/11/20. Progress Note SUBJECTIVE: Continued abd pain and diarrhea even with immodium. Repeat abd xr which did not show acute disease/concerns. Uncomfortable this AM, modified meds for diarrhea. Denies chest pain, increased shortness of breath, fevers, chills, n/v. OBJECTIVE: VITAL SIGNS: Please see below PHYSICAL EXAMINATION: CONSTITUTIONAL: uncomfortable in bed, AAO x 3 EYES: PERRLA, EOM intact HENT, MOUTH: Normocephalic, atraumatic, moist mucous membranes NECK: SUPPLE, no JVD, no lymphadenopathy, no carotid bruit CV: Regular rate and rhythm, S1S2 normal, no murmurs/rubs/gallops RESPIRATORY: Clear to auscultation bilaterally, no rales/rhonchi/wheezes GI: moderate abdominal pain on palpation of bilateral lower quadrants- increased from 03/10/20. Incision on abdominal wall appears well healed, nikkie present. BS positive in 4 quadrants, soft, nondistended, no rebound or guarding, no organomegaly : Deferred MUSCULOSKELETAL: Normal ROM. No cyanosis, clubbing, swelling, joint deformity, extremity edema INTEGUMENTARY: Redness on bilateral buttocks, no open sores or ulcers. Intact, no rashes, no lesions NEUROLOGIC: Cranial Nerves II-XII are intact, no focal deficits PSYCHIATRIC: flat affect CURRENT MEDICATIONS: Please see below LABORATORY DATA: Please see below IMAGING: No new imaging. ASSESSMENT: 84 y/o F admitted for partial small bowel obstruction s/p ileocolectomy, persistent diarrhea with abdominal pain. PLAN: 1. 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 No suspecting infectious source, GI panel neg recently. Abd XR today did not show acute changes. Scheduled immodium and kept as PRN, cholestyramine added late in day on 03/10/20 (can increase if needed). Discussed case with Dr. Martinez this afternoon. Continue to monitor electrolytes, daily labs, I&O's as this can lead to dehydration easily in this elderly woman. Enco urage PO intake of fluids. 2. Abdominal pain 2/2 to problem #1. See plan above. Tramadol PRN. 3. Hypomagnesemia at 1.3, s/p 1 gm mag sulfate. Repeat 1.7 and will give another mag run. Started on standing 400 mg PO BID of magnesium oxide- watch as this med can precipitate diarrhea in some patient. 4. Skin irritation on buttocks/sacral area 2/2 to diarrhea. Monitor closely. Desitin TID, off load with air mattress, change and reposition as per protocol to prevent skin breakdown. 5. Acute diastolic congestive heart failure. -1225/24H, edema improving. C/w IV lasix Q8H, ACEi, BB. 6. Deconditioning. Per PT notes, patient would benefit from continued rehab. C/w PT/OT. 7. DVT px. Enoxaparin DISPOSITION: Currently inpatient status. Plan is undetermined for discharge at this time. PT/OT. VS, I&O, 24H, Fishbone Vital Signs/I&O Vital Signs Date Time Temp Pulse Resp B/P (MAP) Pulse Ox O2 Delivery O2 Flow Rate FiO2 03/11/20 17:33 16 Room Air 03/11/20 14:00 98.6 89 128/68 (88) 99 03/11/20 08:11 2.0 100 I&O- Last 24 Hours up to 6 AM 03/11/20 06:00 Intake Total 700 ml Output Total 2250 ml Balance -1550 ml Laboratory Data 24H LABS Laboratory Tests 2 03/10/20 19:53: Bedside Glucose (Misc Panel) 144H 03/11/20 06:05: Immature Granulocyte % (Auto) 0.7, Neutrophils (%) (Auto) 74.7H, Lymphocytes (%) (Auto) 15.4L, Monocytes (%) (Auto) 7.7H, Eosinophils (%) (Auto) 1.4, Basophils (%) (Auto) 0.1, Neutrophils # (Auto) 6.6, Lymphocytes # (Auto) 1.4L, Monocytes # (Auto) 0.7, Eosinophils # (Auto) 0.1, Basophils # (Auto) 0.0, Nucleated Red Blood Cells % (auto) 0.0, Anion Gap 5L, Glomerular Filtration Rate > 60.0, Calcium Level 8.1L, Phosphorus Level 2.5, Magnesium Level 1.3L, [id number] Natriuretic Peptide 656H 03/11/20 12:21: Bedside Glucose (Misc Panel) 205H 03/11/20 15:38: Magnesium Level 1.7L 6/20/20 16:54: Bedside Glucose (Misc Panel) 113H CBC/BMP Laboratory Tests 03/11/20 06:05 Microbiology Microbiology 03/07/20 Urine Culture - Final, Complete Enterococcus Faecium Yeast Like Organism Current Medications Current Medications Medications (Trade) Dose Ordered Sig/Ashwin Route PRN Reason Start Time Stop Time Status Last Admin Dose Admin Acetaminophen (Tylenol Suspension) 650 mg Q4HP PRN GT PAIN OR FEVER 03/04/20 07:30 03/10/20 10:44 Acetaminophen (Tylenol Suspension) 650 mg Q4HP PRN NG PAIN OR FEVER 03/03/20 11:30 03/04/20 07:17 DC 03/03/20 17:35 Alvimopan (Entereg) 12 mg BID PO 03/02/20 21:00 03/06/20 13:10 DC 03/05/20 20:31 Atenolol (Tenormin) 25 mg DAILY PO 03/04/20 09:00 03/10/20 09:00 Atorvastatin Calcium (Lipitor) 20 mg DAILY PO 03/01/20 09:00 03/01/20 15:43 DC Atorvastatin Calcium (Lipitor) 20 mg DAILY@2100 PO 03/01/20 21:00 03/03/20 15:47 DC 03/02/20 20:22 Cetylpyridinium Chloride (Cepacol) 1 umu Q1HP PRN PO COUGH 03/01/20 16:30 03/11/20 11:16 DC 03/01/20 16:29 Cholestyramine Resin (Questran) 2 gm ACHS PO 03/10/20 21:00 03/11/20 12:22 Ciprofloxacin 400 mg/IV Miscellaneous Supplies 200 ml @ 200 mls/hr Q12H IV 03/01/20 20:00 03/05/20 10:06 DC 03/05/20 08:15 Cod Liver Oil/ Zinc Oxide (Desitin) APPLY TO BUTTOCKS TIDP PRN TOP DISCOMFORT 03/10/20 11:00 03/10/20 17:51 Dextrose (Dextrose 50%) 25 ml ASDIRECTED PRN IV SEE LABEL COMMENTS 03/01/20 01:00 Dextrose/Sodium Chloride 1,000 ml @ 60 mls/hr [id number] IV 03/05/20 11:00 03/07/20 12:22 DC 03/07/20 01:30 Diatrizoate Meglum/ Diatrizoate Sod (Gastrografin) 10 ml Q30M PO 02/29/20 20:10 02/29/20 20:41 DC 02/29/20 20:31 Enoxaparin Sodium (Lovenox) 40 mg DAILY SC 03/01/20 09:00 03/02/20 15:01 DC 03/01/20 10:55 Enoxaparin Sodium (Lovenox) 60 mg Q12H SC 03/03/20 18:45 03/03/20 18:43 DC Enoxaparin Sodium (Lovenox) 60 mg Q12H SC 03/03/20 20:00 03/11/20 10:46 Fat Emulsion Intravenous 500 ml @ 20 mls/hr ONCE@1800 IV 03/06/20 18:00 03/07/20 17:59 DC 03/06/20 18:59 Fat Emulsion Intravenous 500 ml @ 20 mls/hr ONCE@1800 IV 03/07/20 18:00 03/08/20 17:59 DC 03/07/20 18:44 Fentanyl Citrate (Sublimaze) 25 mcg Q5MP PRN IV PAIN LEVEL 5-10 03/02/20 15:30 03/02/20 16:30 DC 03/02/20 16:10 Furosemide (LASIX injection) 20 mg Q6H IV 03/05/20 11:00 03/05/20 23:01 DC 03/05/20 23:56 Furosemide (LASIX injection) 40 mg Q6H IV 03/06/20 11:00 03/11/20 17:32 Furosemide (LASIX injection) 40 mg Q8H IV 03/04/20 10:00 03/05/20 10:35 DC 03/04/20 18:06 Glucagon (Glucagon) 1 mg ASDIRECTED PRN SC SEE LABEL COMMENTS 03/01/20 01:00 Glucose (Glucose) 16 GM ASDIRECTED PRN PO SEE LABEL COMMENTS 03/01/20 01:00 Heparin Sodium (Heparin (Flush)) 200 units ASDIRECTED PRN IV SEE LABEL COMMENTS 03/06/20 18:00 03/11/20 12:23 Heparin Sodium (Heparin (Flush)) 200 units PICC IV 03/06/20 18:00 03/11/20 17:27 Home Med (Med Rec Complete!) ASDIRECTED XX 03/01/20 00:00 03/01/20 00:02 DC Hydromorphone HCl (Dilaudid) 0.2 mg Q5MP PRN IV PAIN LEVEL 4-7 03/02/20 15:30 03/02/20 16:30 DC 03/02/20 15:36 Insulin Detemir (Levemir Insulin) 8 units QAM HI 03/08/20 09:00 03/08/20 17:19 DC Insulin Human Lispro (HumaLOG INSULIN) SEE PROTOCOL TABLE AC HI 03/08/20 17:30 03/11/20 17:28 Insulin Human Lispro (HumaLOG INSULIN) SEE PROTOCOL TABLE Q6H HI 03/01/20 00:00 03/08/20 17:19 DC 03/08/20 12:28 Insulin Human Lispro (HumaLOG INSULIN) SEE PROTOCOL TABLE QHS HI 03/08/20 21:00 Lactated Ringer's 1,000 ml @ 100 mls/hr Q10H IV 03/02/20 15:30 03/02/20 16:30 DC Lactobacillus Acidophilus (Bacid) 1 ea BID PO 03/05/20 09:00 03/10/20 12:00 DC 03/10/20 08:57 Lactobacillus Acidophilus (Bacid) 1 ea WMHS PO 03/10/20 12:30 03/11/20 17:26 Lisinopril (Prinivil) 20 mg DAILY PO 03/01/20 09:00 03/11/20 10:47 Loperamide HCl (Imodium) 2 mg ASDIRECTED PRN PO DIARRHEA 03/10/20 11:00 03/11/20 17:32 Magnesium Sulfate/ Dextrose 1 gm/IV Miscellaneous Supplies 100 ml @ 100 mls/hr Q1H IV 03/05/20 17:00 03/05/20 18:59 DC 03/05/20 18:10 Magnesium Sulfate/ Dextrose 1 gm/IV Miscellaneous Supplies 100 ml @ 100 mls/hr Q1H IV 03/05/20 22:00 03/05/20 23:59 DC 03/05/20 23:57 Meropenem 1 gm/IV Miscellaneous Supplies 50 ml @ 100 mls/hr Q8H IV 03/05/20 11:00 03/06/20 10:24 DC 03/06/20 03:31 Meropenem 1 gm/IV Miscellaneous Supplies 50 ml @ 100 mls/hr Q8H IV 03/06/20 13:00 03/10/20 08:53 DC 03/10/20 05:16 Meropenem 500 mg/ IV Miscellaneous Supplies 50 ml @ 100 mls/hr Q8H IV 03/05/20 10:15 03/05/20 10:19 DC Metoprolol Tartrate (Lopressor) 5 mg Q6H IV 03/03/20 20:00 03/04/20 07:22 DC 03/04/20 03:23 Metoprolol Tartrate (Lopressor) 5 mg Q6HP PRN IV HR>100 03/04/20 07:30 Hold Metronidazole 500 mg/IV Miscellaneous Supplies 100 ml @ 100 mls/hr Q8H IV 03/01/20 21:00 03/05/20 10:06 DC 03/05/20 06:12 Morphine Sulfate (Morphine Sulfate Inj) 2 mg Q2HP PRN IV SEVERE PAIN (PS 8-10) 03/02/20 15:00 03/04/20 07:17 DC 03/03/20 12:41 Morphine Sulfate (Morphine Sulfate Inj) 2 mg Q4HP PRN IV SEVERE PAIN (PS 8-10) 03/01/20 06:30 03/01/20 06:35 DC Morphine Sulfate (Morphine Sulfate Inj) 2 mg Q4HP PRN IV SEVERE PAIN (PS 8-10) 03/01/20 06:35 03/02/20 15:01 DC 03/02/20 10:12 Multivitamins 10 ml/Chromium/ Copper/Manganese/ Seleni/Zn 1 ml/ Amino Ac/Electrol/ Dextrose/Calcium 2,011 ml @ 50 mls/hr ONCE@1800 IV 03/06/20 18:00 03/07/20 17:59 DC 03/06/20 18:58 Ondansetron HCl (ZOFRAN INJection) 4 mg Q4HP PRN IV NAUSEA OR VOMITING 03/02/20 09:30 03/11/20 11:16 DC 03/05/20 10:34 Ondansetron HCl (ZOFRAN INJection) 4 mg Q4HP PRN IV NAUSEA OR VOMITING 03/02/20 15:30 03/02/20 16:30 DC Ondansetron HCl (ZOFRAN INJection) 4 mg Q8HP PRN IV NAUSEA OR VOMITING 03/01/20 06:30 03/02/20 09:24 DC 03/02/20 05:58 Oxycodone HCl (Roxicodone, Oxyir) 5 mg ASDIRECTED PRN PO PAIN LEVEL 1-4 03/02/20 15:30 03/02/20 16:30 DC Oxycodone HCl (Roxicodone, Oxyir) 5 mg DAILY PRN PO PAIN 03/01/20 00:45 03/11/20 08:11 Phenol (Chloraseptic [place]) 5 spray Q2HP PRN MT SORE THROAT 03/01/20 16:30 03/11/20 11:16 DC 03/03/20 17:35 Potassium Chloride 10 meq/ IV Miscellaneous Supplies 100 ml @ 100 mls/hr 0630,0730,0830,0930 IV 03/07/20 06:30 03/07/20 07:50 DC Potassium Chloride 10 meq/ IV Miscellaneous Supplies 100 ml @ 100 mls/hr Q1H IV 03/05/20 05:45 03/05/20 09:44 DC 03/05/20 11:12 Potassium Chloride 10 meq/ IV Miscellaneous Supplies 100 ml @ 100 mls/hr Q1H IV 03/06/20 00:00 03/06/20 03:59 DC 03/06/20 04:40 Potassium Chloride 10 meq/ IV Miscellaneous Supplies 100 ml @ 100 mls/hr Q1H IV 03/07/20 08:00 03/07/20 11:59 DC 03/07/20 11:36 Potassium Chloride 66.7 meq/ Amino Ac/Electrol/ Dextrose/Calcium 2,033.35 ml @ 50 mls/hr ONCE@1800 IV 03/07/20 18:00 03/08/20 17:59 DC 03/07/20 18:44 Potassium Chloride (Micro-K Extencaps) 30 meq BID PO 03/09/20 09:00 03/11/20 10:50 Potassium Chloride (Micro-K Extencaps) 40 meq Q4H PO 03/05/20 06:00 03/05/20 10:01 Cancel Potassium Chloride (Potassium Chloride Liquid) 40 meq Q4H PO 03/07/20 20:15 03/08/20 00:16 DC 03/07/20 23:50 Ramelteon (Rozerem) 8 mg QHS PO 03/08/20 22:00 03/10/20 20:02 Simethicone (Mylicon) 120 mg QID PO 03/01/20 21:00 03/02/20 15:02 DC 03/02/20 08:55 Sodium Chloride 1,000 ml @ 150 mls/hr Q6H40M IV 03/01/20 19:15 03/04/20 09:07 DC 03/04/20 07:34 Sodium Chloride 1,000 ml @ 150 mls/hr Q6H40M IV 02/29/20 19:28 03/01/20 19:00 DC 03/01/20 16:33 Sodium Chloride (Saline Lock Flush) 2 ml ASDIRECTED PRN IV SEE LABEL COMMENTS 03/04/20 10:30 03/08/20 14:11 DC Sodium Chloride (Saline Lock Flush) 2 ml SLF IV 03/04/20 14:00 03/08/20 14:11 DC 03/08/20 05:40 Sodium Chloride (Saline Lock Flush) 10 ml ASDIRECTED PRN IV SEE LABEL COMMENTS 03/06/20 18:00 03/11/20 12:23 Sodium Chloride (Saline Lock Flush) 10 ml PICC IV 03/06/20 18:00 03/11/20 17:27 Tramadol HCl (Ultram) 50 mg Q6HP PRN PO MODERATE PAIN (PS 5-7) 03/09/20 14:45 03/11/20 17:33 Allergies Coded Allergies: amoxicillin (Unverified Allergy, Unknown, 02/29/20) morphine (Verified Adverse Reaction, Mild, 03/04/20) Teri Miller MD Mar 11, 2020 18:17
[2020-03-11] MEDS: LOPERAMIDE 2 MG CAPLET PO SCH (20:00)
[2020-03-11] MEDS: RAMELTEON 8 MG TAB (ROZEREM) PO SCH (20:00)
[2020-03-11] MEDS: MAGNESIUM OXIDE 400 MG TAB (MAG-OX) PO SCH (20:01)
[2020-03-11] MEDS: FLUCONAZOLE 100 MG TAB PO SCH (20:01)
[2020-03-11] MEDS: DIAPER RELIEF PASTE (DESITIN) 60GM TOP SCH (20:02)
[2020-03-11 22:00] VITALS: BP 118/67
[2020-03-11] MEDS: ACETAMINOPHEN 325 MG/10.15 ML UDC GT PRN (23:02)
[2020-03-12] MEDS: FUROSEMIDE 40MG/4ML VIAL (J1940) IV SCH ×4 (05:07→23:00)
[2020-03-12] MEDS: SODIUM CHLORIDE 0.9% INJ 10 ML SYR IV SCH ×2 (05:08→17:16)
[2020-03-12 06:00] VITALS: BP 113/57
[2020-03-12 06:41] LABS: HEMATOCRIT 32.5 % (36.0-47.0); HEMOGLOBIN 10.8 g/dl (12.0-15.5); MEAN CORPUSCULAR HEMOGLOBIN 29.8 pg (27.0-33.0); MEAN CORPUSCULAR HGB CONC 33.2 g/dl (32.0-36.5); MEAN CORPUSCULAR VOLUME 89.8 fl (80.0-96.0); PLATELET COUNT, AUTOMATED 445 10^3/uL (150-450); RED BLOOD COUNT 3.62 10^6/uL (4.00-5.40)
[2020-03-12 07:08] LABS: ALBUMIN 2.3 GM/DL (3.2-5.2); ALT/SGPT 23 U/L (12-78); BILIRUBIN,TOTAL 0.3 MG/DL (0.2-1.0); BLOOD UREA NITROGEN 9 MG/DL (7-18); CALCIUM LEVEL 8.3 MG/DL (8.8-10.2); CARBON DIOXIDE LEVEL 37 MEQ/L (21-32); CHLORIDE LEVEL 95 MEQ/L (98-107); GLOMERULAR FILTRATION RATE > 60.0 (>32); GLUCOSE, FASTING 132 MG/DL (70-100); POTASSIUM SERUM 4.5 MEQ/L (3.5-5.1); SODIUM LEVEL 138 MEQ/L (136-145); TOTAL PROTEIN 5.1 GM/DL (6.4-8.2)
[2020-03-12] MEDS: HumaLOG INSULIN (NovoLOG) PER UNIT SC SCH ×4 (07:54→20:09)
[2020-03-12] MEDS: CHOLESTYRAMINE 4 GM PWD PKT PO SCH ×4 (07:54→21:40)
[2020-03-12] MEDS: atenoloL 25 MG TAB PO SCH (09:00)
[2020-03-12] MEDS: ENOXAPARIN 60MG/0.6ML SYRINGE (J1650 PER 10MG) SC SCH ×2 (09:20→20:10)
[2020-03-12] MEDS: LACTOBACILLUS ACIDOPHILUS CAP (BACID) PO SCH ×4 (09:20→20:11)
[2020-03-12] MEDS: lisinopriL 20 MG TAB PO SCH (09:21)
[2020-03-12] MEDS: MAGNESIUM OXIDE 400 MG TAB (MAG-OX) PO SCH ×2 (09:21→20:11)
[2020-03-12] MEDS: LOPERAMIDE 2 MG CAPLET PO SCH ×2 (09:22→20:12)
[2020-03-12] MEDS: POTASSIUM CHLORIDE 10 MEQ SR TABLET PO SCH ×2 (09:22→20:12)
[2020-03-12] MEDS: FLUCONAZOLE 100 MG TAB PO SCH (09:22)
[2020-03-12] MEDS: DIAPER RELIEF PASTE (DESITIN) 60GM TOP SCH ×3 (09:23→20:11)
[2020-03-12] MEDS: traMADol 50 MG TAB PO PRN ×3 (09:24→23:30)
--- NOTE | 2020-03-12 10:30 | IPN ---
DATE OF SERVICE: 03/11/2020 HISTORY: The patient was admitted on the 03/01/2020. On the , she was seen by Dr. Martinez who performed a laparotomy for a small bowel obstruction and found some ischemic distal small bowel and performed an ileal colectomy. She has generally been healing well from her surgery. She has been advanced back to a regular diet. Her chief problem has been persistent loose stools that have been multiple. VITAL SIGNS: Show that she has been afebrile over the past 24 hours. Her pulse has been in the 60s up into the 80s at times and her blood pressure has been in the normal range. INTAKE AND OUTPUT: Show that yesterday she had 750 recorded in with 1975 recorded out. She has a Peters catheter in place. PHYSICAL EXAMINATION: The patient is lying quietly on the hospital bed. She is alert and appropriately responsive. She complains of her bottom being sore because of her diarrhea. She is having some occasional abdominal cramps. Heart exam shows a regular rhythm. The lungs are clear. The abdomen is perhaps mildly distended. She has a healing midline incision which is closed with surgical nikkie and appears without evidence of infection. She has active bowel sounds. The abdomen is soft and without any undue tenderness. Lower extremities are without significant edema and she has palpable pedal pulses. LABORATORY STUDIES: Show a white count of 9, hemoglobin of 10, hematocrit 30 and a platelet count of 405,000. Differential count shows 75% neutrophils, 15% lymphocytes and 8% monocytes. Chemistry profile today shows sodium of 138, potassium 4.0, chloride 94, CO2 of 39, BUN of 12, creatinine 0.4, and a glucose of 125. Her magnesium was low at 1.3. She had a BNP of 656, which is actually improved from the last pain level which was 2900 on the . I ordered a KUB today to assess her abdomen. This showed some surgical clips within the abdomen. She has some air scattered in portions of what appears to be primarily colon, but also small bowel. There is no definite evidence of partial or complete obstruction. IMPRESSION: The patient overall seems to be doing fairly well from her ileocolic resection. Her obstruction was clearly resolved. She continues to have problems with some loose bowel movements. She is taking a diet as best she can. She apparently is feeling quite weak at this point. She has been started on some Imodium and cholestyramine by Dr. Martinez over the last couple days with the cholestyramine just being started yesterday. RECOMMENDATIONS: At this point, I would recommend continuing with the Imodium and cholestyramine. I have ordered a Clostridium difficile as this I think is still in the list of possibilities given her antibiotic coverage at the time of her admission and through her early postop. I do note that this was checked about 5 days ago and was negative. Certainly, her diet can be continued as tolerated. I will follow her through the weekend and Dr. Martinez will be back on Friday the to continue with her surgical care. MARIAM
[2020-03-12] MEDS: SODIUM CHLORIDE 0.9% INJ 10 ML SYR IV PRN ×2 (11:36→20:10)
[2020-03-12] MEDS: oxyCODONE 5MG TAB PO PRN (12:39)
[2020-03-12 14:00] VITALS: BP 122/70
[2020-03-12 14:05] LABS: CLOSTRIDIUM DIFFICILE PCR NEGATIVE (NEGATIVE)
--- NOTE | 2020-03-12 17:54 | IPNPDOC ---
Date Seen The patient was seen on 03/12/20. Progress Note SUBJECTIVE: Depression screening done with patient today, the patient admits to many symptoms of depression. SSRI, first-line in her age group, was started at low dose at bedtime. She admits to continued abd pain and diarrhea even with immodium, cholestyramine. She has had less diarrhea today since increasing frequency of Imodium and addition of cholestyramine. Air mattress was added to offload her body weight to the skin on bilateral buttocks/sacrum, which has been painful from irritation from diarrhea. Denies chest pain, increased shortness of breath, fevers, chills, n/v. OBJECTIVE: VITAL SIGNS: Please see below PHYSICAL EXAMINATION: CONSTITUTIONAL: resting comfortable in bed, AAO x 3 EYES: PERRLA, EOM intact HENT, MOUTH: Normocephalic, atraumatic, moist mucous membranes NECK: SUPPLE, no JVD, no lymphadenopathy, no carotid bruit CV: Regular rate and rhythm, S1S2 normal, no murmurs/rubs/gallops RESPIRATORY: Clear to auscultation bilaterally, no rales/rhonchi/wheezes GI: mild-mod abdominal pain on palpation of bilateral lower quadrants- improved from 03/11/20. Incision on abdominal wall appears well healed, nikkie present. BS positive in 4 quadrants, soft, nondistended, no rebound or guarding, no organomegaly : Deferred MUSCULOSKELETAL: Normal ROM. No cyanosis, clubbing, swelling, joint deformity, extremity edema INTEGUMENTARY: Redness on bilateral buttocks, no open sores or ulcers. Intact, no rashes, no lesions NEUROLOGIC: Cranial Nerves II-XII are intact, no focal deficits PSYCHIATRIC: flat affect, depressed mood CURRENT MEDICATIONS: Please see below LABORATORY DATA: Please see below IMAGING: No new imaging. ASSESSMENT: 84 y/o F admitted for partial small bowel obstruction s/p ileocolectomy, persistent diarrhea with abdominal pain. PLAN: 1. 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 Improving slowly with only 1 BM today thus far. Not suspecting infectious source, C diff was checked again and again neg. C/w scheduled and PRN immodium (can increase if needed), cholestyramine (can increase if needed). Continue to monitor electrolytes, daily labs, I&O's as this can lead to dehydration easily in this elderly woman. Encourage PO intake of fluids. 2. Abdominal pain 2/2 to problem #1. See plan above. Tramadol PRN. 3. UTI. Never treated for UA + on 03/07/20, UCx growing E. faecalis, some yeast. UA repeated today positive. Will discuss with pharmacy about abx to treat. Day 2 fluconazole (total of 3 days) 4. Depression. Depression screen positive. Started on SSRI QHS. may take up to 8 weeks to see response in geriatric age group. Monitor closely. Can titrate up over time. 5. Hypomagnesemia. Mag 2.0 this AM. s/p 2 gm IV mag sulfate 03/11/20. C/w 400 mg PO BID of magnesium oxide- watch as this med can precipitate diarrhea in some patient. F/u lab in AM. 6. Skin irritation on buttocks/sacral area 2/2 to diarrhea. Monitor closely. Desitin TID, off load with air mattress, change and reposition as per protocol to prevent skin breakdown. 7. Acute diastolic congestive heart failure. -1525/24H, edema improving. C/w IV lasix Q8H, ACEi, BB. 8. Deconditioning. Per PT notes, patient would benefit from continued rehab. C/w PT/OT. 9. DVT px. Enoxaparin DISPOSITION: Currently inpatient status. Plan is undetermined for discharge at this time. PT/OT. VS, I&O, 24H, Fishbone Vital Signs/I&O Vital Signs Date Time Temp Pulse Resp B/P (MAP) Pulse Ox O2 Delivery O2 Flow Rate FiO2 03/12/20 17:14 16 96 Room Air 03/12/20 14:00 98.6 81 122/70 (87) 03/11/20 08:11 2.0 100 I&O- Last 24 Hours up to 6 AM 03/12/20 06:00 Intake Total 800 ml Output Total 2050 ml Balance -1250 ml Laboratory Data 24H LABS Laboratory Tests 2 03/11/20 19:53: Bedside Glucose (Misc Panel) 168H 03/12/20 05:54: Nucleated Red Blood Cells % (auto) 0.0, Anion Gap 6L, Glomerular Filtration Rate > 60.0, Calcium Level 8.3L, Magnesium Level 2.0, Total Bilirubin 0.3, Aspartate Amino Transf (AST/SGOT) 18, Alanine Aminotransferase (ALT/SGPT) 23, Alkaline Phosphatase 83, Total Protein 5.1L, Albumin 2.3L, Albumin/Globulin Ratio 0.8L 03/12/20 09:27: Urine Color YELLOW, Urine Appearance CLEAR, Urine pH 6.0, Urine Specific [place] 1.011, Urine Protein NEGATIVE, Urine Glucose (UA) NEGATIVE, Urine Ketones NEGATIVE, Urine Blood NEGATIVE, Urine Nitrite NEGATIVE, Urine Bilirubin NEGATIVE, Urine Urobilinogen 0.2, Urine Leukocyte Esterase 1+H, Urine WBC (Auto) 17H, Urine RBC (Auto) 5H, Urine Hyaline Casts (Auto) 2, Urine Bacteria (Auto) 1+H, Urine Squamous Epithelial Cells 0, Urine Calcium Oxalate Cryst (Auto) SMALL, Urine Mucus (Auto) SMALL, Urine Sperm (Auto) 03/12/20 09:55: Clostridium difficile [id number] PRESUMPTIVE NEGATIVE, Clostridium difficile Toxin (PCR) NEGATIVE 03/12/20 11:44: Bedside Glucose (Misc Panel) 195H 03/12/20 16:33: Bedside Glucose (Misc Panel) 79L CBC/BMP Laboratory Tests 03/12/20 05:54 Microbiology Microbiology 03/12/20 Urine Culture, Received Pending 03/07/20 Urine Culture - Final, Complete Enterococcus Faecium Yeast Like Organism Current Medications Current Medications Medications (Trade) Dose Ordered Sig/Ashwin Route PRN Reason Start Time Stop Time Status Last Admin Dose Admin Acetaminophen (Tylenol Suspension) 650 mg Q4HP PRN GT PAIN OR FEVER 03/04/20 07:30 03/11/20 23:02 Acetaminophen (Tylenol Suspension) 650 mg Q4HP PRN NG PAIN OR FEVER 03/03/20 11:30 03/04/20 07:17 DC 03/03/20 17:35 Alvimopan (Entereg) 12 mg BID PO 03/02/20 21:00 03/06/20 13:10 DC 03/05/20 20:31 Atenolol (Tenormin) 25 mg DAILY PO 03/04/20 09:00 03/10/20 09:00 Atorvastatin Calcium (Lipitor) 20 mg DAILY PO 03/01/20 09:00 03/01/20 15:43 DC Atorvastatin Calcium (Lipitor) 20 mg DAILY@2100 PO 03/01/20 21:00 03/03/20 15:47 DC 03/02/20 20:22 Cetylpyridinium Chloride (Cepacol) 1 umu Q1HP PRN PO COUGH 03/01/20 16:30 03/11/20 11:16 DC 03/01/20 16:29 Cholestyramine Resin (Questran) 2 gm ACHS PO 03/10/20 21:00 03/12/20 11:35 Ciprofloxacin 400 mg/IV Miscellaneous Supplies 200 ml @ 200 mls/hr Q12H IV 03/01/20 20:00 03/05/20 10:06 DC 03/05/20 08:15 Cod Liver Oil/ Zinc Oxide (Desitin) APPLY TO BUTTOCKS TID TOP 03/11/20 21:00 03/12/20 16:20 Cod Liver Oil/ Zinc Oxide (Desitin) APPLY TO BUTTOCKS TIDP PRN TOP DISCOMFORT 03/10/20 11:00 03/11/20 18:04 DC 03/10/20 17:51 Dextrose (Dextrose 50%) 25 ml ASDIRECTED PRN IV SEE LABEL COMMENTS 03/01/20 01:00 Dextrose/Sodium Chloride 1,000 ml @ 60 mls/hr [id number] IV 03/05/20 11:00 03/07/20 12:22 DC 03/07/20 01:30 Diatrizoate Meglum/ Diatrizoate Sod (Gastrografin) 10 ml Q30M PO 02/29/20 20:10 02/29/20 20:41 DC 02/29/20 20:31 Enoxaparin Sodium (Lovenox) 40 mg DAILY SC 03/01/20 09:00 03/02/20 15:01 DC 03/01/20 10:55 Enoxaparin Sodium (Lovenox) 60 mg Q12H SC 03/03/20 18:45 03/03/20 18:43 DC Enoxaparin Sodium (Lovenox) 60 mg Q12H SC 03/03/20 20:00 03/12/20 09:20 Fat Emulsion Intravenous 500 ml @ 20 mls/hr ONCE@1800 IV 03/06/20 18:00 03/07/20 17:59 DC 03/06/20 18:59 Fat Emulsion Intravenous 500 ml @ 20 mls/hr ONCE@1800 IV 03/07/20 18:00 03/08/20 17:59 DC 03/07/20 18:44 Fentanyl Citrate (Sublimaze) 25 mcg Q5MP PRN IV PAIN LEVEL 5-10 03/02/20 15:30 03/02/20 16:30 DC 03/02/20 16:10 Fluconazole (Diflucan Tablet) 100 mg DAILY PO 03/11/20 19:30 03/13/20 10:00 03/12/20 09:22 Furosemide (LASIX injection) 20 mg Q6H IV 03/05/20 11:00 03/05/20 23:01 DC 03/05/20 23:56 Furosemide (LASIX injection) 40 mg Q6H IV 03/06/20 11:00 03/12/20 17:13 Furosemide (LASIX injection) 40 mg Q8H IV 03/04/20 10:00 03/05/20 10:35 DC 03/04/20 18:06 Glucagon (Glucagon) 1 mg ASDIRECTED PRN SC SEE LABEL COMMENTS 03/01/20 01:00 Glucose (Glucose) 16 GM ASDIRECTED PRN PO SEE LABEL COMMENTS 03/01/20 01:00 Heparin Sodium (Heparin (Flush)) 200 units ASDIRECTED PRN IV SEE LABEL COMMENTS 03/06/20 18:00 03/12/20 11:36 Heparin Sodium (Heparin (Flush)) 200 units PICC IV 03/06/20 18:00 03/12/20 17:17 Home Med (Med Rec Complete!) ASDIRECTED XX 03/01/20 00:00 03/01/20 00:02 DC Hydromorphone HCl (Dilaudid) 0.2 mg Q5MP PRN IV PAIN LEVEL 4-7 03/02/20 15:30 03/02/20 16:30 DC 03/02/20 15:36 Insulin Detemir (Levemir Insulin) 8 units QAM SC 03/08/20 09:00 03/08/20 17:19 DC Insulin Human Lispro (HumaLOG INSULIN) SEE PROTOCOL TABLE AC SC 03/08/20 17:30 03/12/20 12:38 Insulin Human Lispro (HumaLOG INSULIN) SEE PROTOCOL TABLE Q6H SC 03/01/20 00:00 03/08/20 17:19 DC 03/08/20 12:28 Insulin Human Lispro (HumaLOG INSULIN) SEE PROTOCOL TABLE QHS SC 03/08/20 21:00 Lactated Ringer's 1,000 ml @ 100 mls/hr Q10H IV 03/02/20 15:30 03/02/20 16:30 DC Lactobacillus Acidophilus (Bacid) 1 ea BID PO 03/05/20 09:00 03/10/20 12:00 DC 03/10/20 08:57 Lactobacillus Acidophilus (Bacid) 1 ea WMHS PO 03/10/20 12:30 03/12/20 17:13 Lisinopril (Prinivil) 20 mg DAILY PO 03/01/20 09:00 03/12/20 09:21 Loperamide HCl (Imodium) 2 mg ASDIRECTED PRN PO DIARRHEA 03/10/20 11:00 03/11/20 18:06 DC 03/11/20 17:32 Loperamide HCl (Imodium) 2 mg BID PO 03/11/20 21:00 03/12/20 09:22 Loperamide HCl (Imodium) 2 mg Q8HP PRN PO DIARRHEA 03/11/20 18:15 Magnesium Oxide (Mag-Ox) 400 mg BID PO 03/11/20 21:00 03/12/20 09:21 Magnesium Sulfate/ Dextrose 1 gm/IV Miscellaneous Supplies 100 ml @ 100 mls/hr Q1H IV 03/05/20 17:00 03/05/20 18:59 DC 03/05/20 18:10 Magnesium Sulfate/ Dextrose 1 gm/IV Miscellaneous Supplies 100 ml @ 100 mls/hr Q1H IV 03/05/20 22:00 03/05/20 23:59 DC 03/05/20 23:57 Meropenem 1 gm/IV Miscellaneous Supplies 50 ml @ 100 mls/hr Q8H IV 03/05/20 11:00 03/06/20 10:24 DC 03/06/20 03:31 Meropenem 1 gm/IV Miscellaneous Supplies 50 ml @ 100 mls/hr Q8H IV 03/06/20 13:00 03/10/20 08:53 DC 03/10/20 05:16 Meropenem 500 mg/ IV Miscellaneous Supplies 50 ml @ 100 mls/hr Q8H IV 03/05/20 10:15 03/05/20 10:19 DC Metoprolol Tartrate (Lopressor) 5 mg Q6H IV 03/03/20 20:00 03/04/20 07:22 DC 03/04/20 03:23 Metoprolol Tartrate (Lopressor) 5 mg Q6HP PRN IV HR>100 03/04/20 07:30 Hold Metronidazole 500 mg/IV Miscellaneous Supplies 100 ml @ 100 mls/hr Q8H IV 03/01/20 21:00 03/05/20 10:06 DC 03/05/20 06:12 Morphine Sulfate (Morphine Sulfate Inj) 2 mg Q2HP PRN IV SEVERE PAIN (PS 8-10) 03/02/20 15:00 03/04/20 07:17 DC 03/03/20 12:41 Morphine Sulfate (Morphine Sulfate Inj) 2 mg Q4HP PRN IV SEVERE PAIN (PS 8-10) 03/01/20 06:30 03/01/20 06:35 DC Morphine Sulfate (Morphine Sulfate Inj) 2 mg Q4HP PRN IV SEVERE PAIN (PS 8-10) 03/01/20 06:35 03/02/20 15:01 DC 03/02/20 10:12 Multivitamins 10 ml/Chromium/ Copper/Manganese/ Seleni/Zn 1 ml/ Amino Ac/Electrol/ Dextrose/Calcium 2,011 ml @ 50 mls/hr ONCE@1800 IV 03/06/20 18:00 03/07/20 17:59 DC 03/06/20 18:58 Ondansetron HCl (ZOFRAN INJection) 4 mg Q4HP PRN IV NAUSEA OR VOMITING 03/02/20 09:30 03/11/20 11:16 DC 03/05/20 10:34 Ondansetron HCl (ZOFRAN INJection) 4 mg Q4HP PRN IV NAUSEA OR VOMITING 03/02/20 15:30 03/02/20 16:30 DC Ondansetron HCl (ZOFRAN INJection) 4 mg Q8HP PRN IV NAUSEA OR VOMITING 03/01/20 06:30 03/02/20 09:24 DC 03/02/20 05:58 Oxycodone HCl (Roxicodone, Oxyir) 5 mg ASDIRECTED PRN PO PAIN LEVEL 1-4 03/02/20 15:30 03/02/20 16:30 DC Oxycodone HCl (Roxicodone, Oxyir) 5 mg DAILY PRN PO PAIN 03/01/20 00:45 03/12/20 12:39 Paroxetine HCl (PAXil) 10 mg QHS PO 03/12/20 21:00 Phenol (Chloraseptic [place]) 5 spray Q2HP PRN MT SORE THROAT 03/01/20 16:30 03/11/20 11:16 DC 03/03/20 17:35 Potassium Chloride 10 meq/ IV Miscellaneous Supplies 100 ml @ 100 mls/hr 0630,0730,0830,0930 IV 03/07/20 06:30 03/07/20 07:50 DC Potassium Chloride 10 meq/ IV Miscellaneous Supplies 100 ml @ 100 mls/hr Q1H IV 03/05/20 05:45 03/05/20 09:44 DC 03/05/20 11:12 Potassium Chloride 10 meq/ IV Miscellaneous Supplies 100 ml @ 100 mls/hr Q1H IV 03/06/20 00:00 03/06/20 03:59 DC 03/06/20 04:40 Potassium Chloride 10 meq/ IV Miscellaneous Supplies 100 ml @ 100 mls/hr Q1H IV 03/07/20 08:00 03/07/20 11:59 DC 03/07/20 11:36 Potassium Chloride 66.7 meq/ Amino Ac/Electrol/ Dextrose/Calcium 2,033.35 ml @ 50 mls/hr ONCE@1800 IV 03/07/20 18:00 03/08/20 17:59 DC 03/07/20 18:44 Potassium Chloride (Micro-K Extencaps) 30 meq BID PO 03/09/20 09:00 03/12/20 09:22 Potassium Chloride (Micro-K Extencaps) 40 meq Q4H PO 03/05/20 06:00 03/05/20 10:01 Cancel Potassium Chloride (Potassium Chloride Liquid) 40 meq Q4H PO 03/07/20 20:15 03/08/20 00:16 DC 03/07/20 23:50 Ramelteon (Rozerem) 8 mg QHS PO 03/08/20 22:00 03/11/20 20:00 Simethicone (Mylicon) 120 mg QID PO 03/01/20 21:00 03/02/20 15:02 DC 03/02/20 08:55 Sodium Chloride 1,000 ml @ 150 mls/hr Q6H40M IV 03/01/20 19:15 03/04/20 09:07 DC 03/04/20 07:34 Sodium Chloride 1,000 ml @ 150 mls/hr Q6H40M IV 02/29/20 19:28 03/01/20 19:00 DC 03/01/20 16:33 Sodium Chloride (Saline Lock Flush) 2 ml ASDIRECTED PRN IV SEE LABEL COMMENTS 03/04/20 10:30 03/08/20 14:11 DC Sodium Chloride (Saline Lock Flush) 2 ml SLF IV 03/04/20 14:00 03/08/20 14:11 DC 03/08/20 05:40 Sodium Chloride (Saline Lock Flush) 10 ml ASDIRECTED PRN IV SEE LABEL COMMENTS 03/06/20 18:00 03/12/20 11:36 Sodium Chloride (Saline Lock Flush) 10 ml PICC IV 03/06/20 18:00 03/12/20 17:16 Tramadol HCl (Ultram) 50 mg Q6HP PRN PO MODERATE PAIN (PS 5-7) 03/09/20 14:45 03/12/20 17:14 Allergies Coded Allergies: amoxicillin (Unverified Allergy, Unknown, 02/29/20) morphine (Verified Adverse Reaction, Mild, 03/04/20) Teri Miller MD Mar 12, 2020 17:54
[2020-03-12] MEDS ORDERED: LevoFLOXacin IV 500 MG in IV 1 EA IV SCH (18:00)
[2020-03-12] MEDS: VANCOMYCIN HCL 1,000 MG, VIAL MATE ADAPTER 1 EACH in D5W 250 ML IV SCH (20:10)
[2020-03-12] MEDS: PARoxetine 10MG TABLET PO SCH (20:11)
[2020-03-12] MEDS: RAMELTEON 8 MG TAB (ROZEREM) PO SCH (20:11)
[2020-03-12 22:00] VITALS: BP 97/58
[2020-03-12 23:28] VITALS: BP 108/70
[2020-03-13] MEDS: FUROSEMIDE 40MG/4ML VIAL (J1940) IV SCH ×4 (05:30→23:00)
[2020-03-13] MEDS: SODIUM CHLORIDE 0.9% INJ 10 ML SYR IV SCH (05:30)
[2020-03-13] MEDS: traMADol 50 MG TAB PO PRN ×3 (05:31→20:24)
[2020-03-13 06:00] VITALS: BP 119/69
[2020-03-13 06:30] LABS: HEMATOCRIT 31.9 % (36.0-47.0); HEMOGLOBIN 10.5 g/dl (12.0-15.5); MEAN CORPUSCULAR HEMOGLOBIN 29.8 pg (27.0-33.0); MEAN CORPUSCULAR HGB CONC 32.9 g/dl (32.0-36.5); MEAN CORPUSCULAR VOLUME 90.6 fl (80.0-96.0); PLATELET COUNT, AUTOMATED 441 10^3/uL (150-450); RED BLOOD COUNT 3.52 10^6/uL (4.00-5.40); WHITE BLOOD COUNT 8.7 10^3/uL (4.0-10.0)
--- NOTE | 2020-03-13 07:10 | IPN ---
DATE: 03/12/2020 HISTORY: Patient is now 11 days postoperative from laparotomy with resection of her distal ileum and cecum. She has been healing well and is on a regular diet but has had problems with loose diarrheal stools. Her medications, including Imodium and cholestyramine, were adjusted by the hospitalist yesterday. She reports that her diarrhea has diminished somewhat today. She does have some irritation of the perirectal area. VITAL SIGNS: Show that she has been afebrile since yesterday. Her pulse is in the 60s to 90s. Her blood pressure is good. INTAKE AND OUTPUT: Show that yesterday she had 800 recorded in with 2325 out. She had six incontinent bowel movements recorded. PHYSICAL EXAMINATION: Patient's abdomen is perhaps mildly protuberant. Her incision is clean and dry. The abdomen is soft, but she does have a little scattered mild tenderness on palpation. LABORATORY STUDIES: Today, show a white count of 8, hemoglobin of 11, hematocrit 32, and a platelet count of 445,000. Chemistry profile shows a sodium of 138, potassium 4.5, chloride 95, CO2 of 37, BUN of 9, creatinine 0.5, and a glucose of 132. Her total protein is 5.1 with an albumin of 2.3. She had a repeat Clostridium (C) difficile toxin on a stool sample today, which was negative. IMPRESSION: Patient reports that her diarrhea has improved somewhat. She is taking a diet adequately, and her urine output appears good. RECOMMENDATIONS: At this point, I would continue as her medicines are currently ordered and see if her diarrhea will improve with her current medical regimen. Dr. Martinez will be back on the morning of 03/13/2020 to see how the patient is progressing and make any other changes that he feels may be appropriate. MARIAM
[2020-03-13 07:22] LABS: ALBUMIN 2.3 GM/DL (3.2-5.2); ALT/SGPT 18 U/L (12-78); BILIRUBIN,TOTAL 0.4 MG/DL (0.2-1.0); BLOOD UREA NITROGEN 13 MG/DL (7-18); CALCIUM LEVEL 8.6 MG/DL (8.8-10.2); CARBON DIOXIDE LEVEL 33 MEQ/L (21-32); CHLORIDE LEVEL 97 MEQ/L (98-107); CREATININE FOR GFR 0.52 MG/DL (0.55-1.30); GLOMERULAR FILTRATION RATE > 60.0 (>32); GLUCOSE, FASTING 127 MG/DL (70-100); MAGNESIUM LEVEL 1.9 MG/DL (1.8-2.4); POTASSIUM SERUM 5.2 MEQ/L (3.5-5.1); SODIUM LEVEL 136 MEQ/L (136-145); TOTAL PROTEIN 4.9 GM/DL (6.4-8.2)
[2020-03-13] MEDS: FLUCONAZOLE 100 MG TAB PO SCH (08:07)
[2020-03-13] MEDS: MAGNESIUM OXIDE 400 MG TAB (MAG-OX) PO SCH ×2 (08:08→20:23)
[2020-03-13] MEDS: lisinopriL 20 MG TAB PO SCH (08:08)
[2020-03-13] MEDS: LOPERAMIDE 2 MG CAPLET PO SCH ×2 (08:08→20:23)
[2020-03-13] MEDS: atenoloL 25 MG TAB PO SCH (08:09)
[2020-03-13] MEDS: DIAPER RELIEF PASTE (DESITIN) 60GM TOP SCH ×3 (08:09→20:24)
[2020-03-13] MEDS: HumaLOG INSULIN (NovoLOG) PER UNIT SC SCH ×4 (08:40→21:00)
[2020-03-13] MEDS: VANCOMYCIN HCL 1,000 MG, VIAL MATE ADAPTER 1 EACH in D5W 250 ML IV SCH (08:40)
[2020-03-13] MEDS: ACETAMINOPHEN 325 MG/10.15 ML UDC GT PRN (08:41)
[2020-03-13] MEDS: ENOXAPARIN 60MG/0.6ML SYRINGE (J1650 PER 10MG) SC SCH ×2 (08:42→20:22)
[2020-03-13] MEDS: LACTOBACILLUS ACIDOPHILUS CAP (BACID) PO SCH ×4 (08:42→20:23)
[2020-03-13] MEDS: CHOLESTYRAMINE 4 GM PWD PKT PO SCH ×4 (09:44→21:26)
[2020-03-13] MEDS: SODIUM CHLORIDE 0.9% INJ 10 ML SYR IV PRN ×2 (09:45→11:59)
--- NOTE | 2020-03-13 11:26 | IPN ---
DATE: 03/13/2020 The patient's diarrhea substantially improved overnight and into the morning. Today, she states that her major complaint is her back and her bottom being sore. Since having the air mattress, she seems to be doing well with both of those issues or at least starting to improve. She was started on some Ultram and has been on this for a few days, although she is on low-dose at this point. Her physical exam reveals an abdomen, which is mildly distended, nontender. She had mild discomfort throughout her abdomen yesterday as reported by Dr. Yo, but this has been something ongoing for her and really it seems better today than it was last week. IMPRESSION/PLAN: The patient's diarrhea issues seem to be improving. We do need to be a little careful about developing some constipation in her, but at this point, I anticipate if we can make the diarrhea better we can improve the perianal excoriations that have occurred and once that is that has improved she will be able to sit more, which will probably assist with her back being more comfortable as well. She understands and we will see how she does with current changes.
[2020-03-13 14:00] VITALS: BP 108/60
[2020-03-13] MEDS: oxyCODONE 5MG TAB PO PRN (15:03)
[2020-03-13] MEDS ORDERED: ONDANSETRON 4MG/2ML VIAL IV PRN (17:45)
--- NOTE | 2020-03-13 18:05 | IPNPDOC ---
Date Seen The patient was seen on 03/13/20. Progress Note SUBJECTIVE: Improved diarrhea with medication changes, appears more comfortable in bed today. To be evaluated by ARU for rehabilitation. Skin irritation on her buttocks causes some discomfort but that is controlled. Denies chest pain, increased shortness of breath, fevers, chills, n/v. OBJECTIVE: VITAL SIGNS: Please see below PHYSICAL EXAMINATION: CONSTITUTIONAL: resting comfortable in bed, AAO x 3 EYES: PERRLA, EOM intact HENT, MOUTH: Normocephalic, atraumatic, moist mucous membranes NECK: SUPPLE, no JVD, no lymphadenopathy, no carotid bruit CV: Regular rate and rhythm, S1S2 normal, no murmurs/rubs/gallops RESPIRATORY: Clear to auscultation bilaterally, no rales/rhonchi/wheezes GI: mild-mod abdominal pain on palpation of bilateral lower quadrants- improved from 03/11/20. Incision on abdominal wall appears well healed, nikkie present. BS positive in 4 quadrants, soft, nondistended, no rebound or guarding, no organomegaly : Deferred MUSCULOSKELETAL: Normal ROM. No cyanosis, clubbing, swelling, joint deformity, extremity edema INTEGUMENTARY: Redness on bilateral buttocks, no open sores or ulcers. Intact, no rashes, no lesions NEUROLOGIC: Cranial Nerves II-XII are intact, no focal deficits PSYCHIATRIC: flat affect, depressed mood CURRENT MEDICATIONS: Please see below LABORATORY DATA: Please see below IMAGING: No new imaging. ASSESSMENT: 84 y/o F admitted for partial small bowel obstruction s/p ileocolectomy, persistent diarrhea with abdominal pain. PLAN: 1. 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 Improved with current regimen, now caution to not induce constipation.C/w scheduled and PRN immodium , cholestyramine. Continue to monitor electrolytes, daily labs, I&O's. Encourage PO intake of fluids. 2. Abdominal pain 2/2 to problem #1. See plan above. Tramadol PRN. 3. UTI. Never treated for UA + on 03/07/20, UCx growing E. faecalis, some yeast. UA repeated today positive. Day 2 vancomycin. Stop 03/14. 4. Depression. Depression screen positive. Started on SSRI QHS 03/12/20. May take up to 8 weeks to see response in geriatric age group. Monitor closely. Can titrate up over time. 5. Hypomagnesemia likely 2/2 to diarrhea. Normal currently. C/w 400 mg PO BID of magnesium oxide- watch as this med can precipitate diarrhea in some patient. F/u lab in AM. 6. Skin irritation on buttocks/sacral area 2/2 to diarrhea. Monitor closely. Desitin TID, off load with air mattress, change and reposition as per protocol to prevent skin breakdown. 7. Acute diastolic congestive heart failure. -330/24H, edema improving. C/w IV lasix Q8H, ACEi, BB. 8. Deconditioning. Per PT notes, patient would benefit from continued rehab. C/w PT/OT. 9. DVT px. Enoxaparin DISPOSITION: Currently inpatient status. Plan is rehabilitation at this time, ARU to evaluate. PT/OT. VS, I&O, 24H, Fishbone Vital Signs/I&O Vital Signs Date Time Temp Pulse Resp B/P (MAP) Pulse Ox O2 Delivery O2 Flow Rate FiO2 03/13/20 15:33 14 03/13/20 14:00 98.8 69 108/60 (76) 98 Room Air 03/12/20 17:44 2.0 100 I&O- Last 24 Hours up to 6 AM 03/13/20 06:00 Intake Total 1970 ml Output Total 2325 ml Balance -355 ml Laboratory Data 24H LABS Laboratory Tests 2 03/12/20 20:09: Bedside Glucose (Misc Panel) 177H 03/13/20 05:58: Nucleated Red Blood Cells % (auto) 0.0, Anion Gap 6L, Glomerular Filtration Rate > 60.0, Calcium Level 8.6L, Magnesium Level 1.9, Total Bilirubin 0.4, Aspartate Amino Transf (AST/SGOT) 16, Alanine Aminotransferase (ALT/SGPT) 18, Alkaline Phosphatase 83, Total Protein 4.9L, Albumin 2.3L, Albumin/Globulin Ratio 0.9L 03/13/20 11:47: Bedside Glucose (Misc Panel) 131H 03/13/20 16:45: Bedside Glucose (Misc Panel) 119H CBC/BMP Laboratory Tests 03/13/20 05:58 Microbiology Microbiology 03/12/20 Urine Culture - Final, Complete 6/16/20 Urine Culture - Final, Complete Enterococcus Faecium Yeast Like Organism Current Medications Current Medications Medications (Trade) Dose Ordered Sig/Ashwin Route PRN Reason Start Time Stop Time Status Last Admin Dose Admin Acetaminophen (Tylenol Suspension) 650 mg Q4HP PRN GT PAIN OR FEVER 03/04/20 07:30 03/13/20 08:41 Acetaminophen (Tylenol Suspension) 650 mg Q4HP PRN NG PAIN OR FEVER 03/03/20 11:30 03/04/20 07:17 DC 03/03/20 17:35 Alvimopan (Entereg) 12 mg BID PO 03/02/20 21:00 03/06/20 13:10 DC 03/05/20 20:31 Atenolol (Tenormin) 25 mg DAILY PO 03/04/20 09:00 03/13/20 08:09 Atorvastatin Calcium (Lipitor) 20 mg DAILY PO 03/01/20 09:00 03/01/20 15:43 DC Atorvastatin Calcium (Lipitor) 20 mg DAILY@2100 PO 03/01/20 21:00 03/03/20 15:47 DC 03/02/20 20:22 Cetylpyridinium Chloride (Cepacol) 1 umu Q1HP PRN PO COUGH 03/01/20 16:30 03/11/20 11:16 DC 03/01/20 16:29 Cholestyramine Resin (Questran) 2 gm ACHS PO 03/10/20 21:00 03/13/20 13:08 Ciprofloxacin 400 mg/IV Miscellaneous Supplies 200 ml @ 200 mls/hr Q12H IV 03/01/20 20:00 03/05/20 10:06 DC 03/05/20 08:15 Cod Liver Oil/ Zinc Oxide (Desitin) APPLY TO BUTTOCKS TID TOP 03/11/20 21:00 03/13/20 16:16 Cod Liver Oil/ Zinc Oxide (Desitin) APPLY TO BUTTOCKS TIDP PRN TOP DISCOMFORT 03/10/20 11:00 03/11/20 18:04 DC 03/10/20 17:51 Dextrose (Dextrose 50%) 25 ml ASDIRECTED PRN IV SEE LABEL COMMENTS 03/01/20 01:00 Dextrose/Sodium Chloride 1,000 ml @ 60 mls/hr [id number] IV 03/05/20 11:00 03/07/20 12:22 DC 03/07/20 01:30 Diatrizoate Meglum/ Diatrizoate Sod (Gastrografin) 10 ml Q30M PO 02/29/20 20:10 02/29/20 20:41 DC 02/29/20 20:31 Enoxaparin Sodium (Lovenox) 40 mg DAILY SC 03/01/20 09:00 03/02/20 15:01 DC 03/01/20 10:55 Enoxaparin Sodium (Lovenox) 60 mg Q12H SC 03/03/20 18:45 03/03/20 18:43 DC Enoxaparin Sodium (Lovenox) 60 mg Q12H SC 03/03/20 20:00 03/13/20 08:42 Fat Emulsion Intravenous 500 ml @ 20 mls/hr ONCE@1800 IV 03/06/20 18:00 03/07/20 17:59 DC 03/06/20 18:59 Fat Emulsion Intravenous 500 ml @ 20 mls/hr ONCE@1800 IV 03/07/20 18:00 03/08/20 17:59 DC 03/07/20 18:44 Fentanyl Citrate (Sublimaze) 25 mcg Q5MP PRN IV PAIN LEVEL 5-10 03/02/20 15:30 03/02/20 16:30 DC 03/02/20 16:10 Fluconazole (Diflucan Tablet) 100 mg DAILY PO 03/11/20 19:30 03/13/20 10:00 DC 03/13/20 08:07 Furosemide (LASIX injection) 20 mg Q6H IV 03/05/20 11:00 03/05/20 23:01 DC 03/05/20 23:56 Furosemide (LASIX injection) 40 mg Q6H IV 03/06/20 11:00 03/13/20 17:33 Furosemide (LASIX injection) 40 mg Q8H IV 03/04/20 10:00 03/05/20 10:35 DC 03/04/20 18:06 Glucagon (Glucagon) 1 mg ASDIRECTED PRN SC SEE LABEL COMMENTS 03/01/20 01:00 Glucose (Glucose) 16 GM ASDIRECTED PRN PO SEE LABEL COMMENTS 03/01/20 01:00 Heparin Sodium (Heparin (Flush)) 200 units ASDIRECTED PRN IV SEE LABEL COMMENTS 03/06/20 18:00 03/13/20 17:13 DC 03/13/20 11:59 Heparin Sodium (Heparin (Flush)) 200 units PICC IV 03/06/20 18:00 03/13/20 17:13 DC 03/13/20 05:30 Home Med (Med Rec Complete!) ASDIRECTED XX 03/01/20 00:00 03/01/20 00:02 DC Hydromorphone HCl (Dilaudid) 0.2 mg Q5MP PRN IV PAIN LEVEL 4-7 03/02/20 15:30 03/02/20 16:30 DC 03/02/20 15:36 Insulin Detemir (Levemir Insulin) 8 units QAM IA 03/08/20 09:00 03/08/20 17:19 DC Insulin Human Lispro (HumaLOG INSULIN) SEE PROTOCOL TABLE AC IA 03/08/20 17:30 03/13/20 17:33 Insulin Human Lispro (HumaLOG INSULIN) SEE PROTOCOL TABLE Q6H IA 03/01/20 00:00 03/08/20 17:19 DC 03/08/20 12:28 Insulin Human Lispro (HumaLOG INSULIN) SEE PROTOCOL TABLE QHS IA 03/08/20 21:00 Lactated Ringer's 1,000 ml @ 100 mls/hr Q10H IV 03/02/20 15:30 03/02/20 16:30 DC Lactobacillus Acidophilus (Bacid) 1 ea BID PO 03/05/20 09:00 03/10/20 12:00 DC 03/10/20 08:57 Lactobacillus Acidophilus (Bacid) 1 ea WMHS PO 03/10/20 12:30 03/13/20 17:33 Levofloxacin 500 mg/IV Miscellaneous Supplies 100 ml @ 100 mls/hr Q24H IV 03/12/20 18:00 03/12/20 17:58 DC Lisinopril (Prinivil) 20 mg DAILY PO 03/01/20 09:00 03/13/20 08:08 Loperamide HCl (Imodium) 2 mg ASDIRECTED PRN PO DIARRHEA 03/10/20 11:00 03/11/20 18:06 DC 03/11/20 17:32 Loperamide HCl (Imodium) 2 mg BID PO 03/11/20 21:00 03/13/20 08:08 Loperamide HCl (Imodium) 2 mg Q8HP PRN PO DIARRHEA 03/11/20 18:15 Magnesium Oxide (Mag-Ox) 400 mg BID PO 03/11/20 21:00 03/13/20 08:08 Magnesium Sulfate/ Dextrose 1 gm/IV Miscellaneous Supplies 100 ml @ 100 mls/hr Q1H IV 03/05/20 17:00 03/05/20 18:59 DC 03/05/20 18:10 Magnesium Sulfate/ Dextrose 1 gm/IV Miscellaneous Supplies 100 ml @ 100 mls/hr Q1H IV 03/05/20 22:00 03/05/20 23:59 DC 03/05/20 23:57 Meropenem 1 gm/IV Miscellaneous Supplies 50 ml @ 100 mls/hr Q8H IV 03/05/20 11:00 03/06/20 10:24 DC 03/06/20 03:31 Meropenem 1 gm/IV Miscellaneous Supplies 50 ml @ 100 mls/hr Q8H IV 03/06/20 13:00 03/10/20 08:53 DC 03/10/20 05:16 Meropenem 500 mg/ IV Miscellaneous Supplies 50 ml @ 100 mls/hr Q8H IV 03/05/20 10:15 03/05/20 10:19 DC Metoprolol Tartrate (Lopressor) 5 mg Q6H IV 03/03/20 20:00 03/04/20 07:22 DC 03/04/20 03:23 Metoprolol Tartrate (Lopressor) 5 mg Q6HP PRN IV HR>100 03/04/20 07:30 Hold Metronidazole 500 mg/IV Miscellaneous Supplies 100 ml @ 100 mls/hr Q8H IV 03/01/20 21:00 03/05/20 10:06 DC 03/05/20 06:12 Morphine Sulfate (Morphine Sulfate Inj) 2 mg Q2HP PRN IV SEVERE PAIN (PS 8-10) 03/02/20 15:00 03/04/20 07:17 DC 03/03/20 12:41 Morphine Sulfate (Morphine Sulfate Inj) 2 mg Q4HP PRN IV SEVERE PAIN (PS 8-10) 03/01/20 06:30 03/01/20 06:35 DC Morphine Sulfate (Morphine Sulfate Inj) 2 mg Q4HP PRN IV SEVERE PAIN (PS 8-10) 03/01/20 06:35 03/02/20 15:01 DC 03/02/20 10:12 Multivitamins 10 ml/Chromium/ Copper/Manganese/ Seleni/Zn 1 ml/ Amino Ac/Electrol/ Dextrose/Calcium 2,011 ml @ 50 mls/hr ONCE@1800 IV 03/06/20 18:00 03/07/20 17:59 DC 03/06/20 18:58 Ondansetron HCl (ZOFRAN INJection) 4 mg Q4HP PRN IV NAUSEA OR VOMITING 03/02/20 09:30 03/11/20 11:16 DC 03/05/20 10:34 Ondansetron HCl (ZOFRAN INJection) 4 mg Q4HP PRN IV NAUSEA OR VOMITING 03/02/20 15:30 03/02/20 16:30 DC Ondansetron HCl (ZOFRAN INJection) 4 mg Q6HP PRN IV NAUSEA OR VOMITING 03/13/20 17:45 03/13/20 17:49 Ondansetron HCl (ZOFRAN INJection) 4 mg Q8HP PRN IV NAUSEA OR VOMITING 03/01/20 06:30 03/02/20 09:24 DC 03/02/20 05:58 Oxycodone HCl (Roxicodone, Oxyir) 5 mg ASDIRECTED PRN PO PAIN LEVEL 1-4 03/02/20 15:30 03/02/20 16:30 DC Oxycodone HCl (Roxicodone, Oxyir) 5 mg DAILY PRN PO PAIN 03/01/20 00:45 03/13/20 15:03 Paroxetine HCl (PAXil) 10 mg QHS PO 03/12/20 21:00 03/12/20 20:11 Phenol (Chloraseptic Nuevo) 5 spray Q2HP PRN MT SORE THROAT 03/01/20 16:30 03/11/20 11:16 DC 03/03/20 17:35 Potassium Chloride 10 meq/ IV Miscellaneous Supplies 100 ml @ 100 mls/hr 0630,0730,0830,0930 IV 03/07/20 06:30 03/07/20 07:50 DC Potassium Chloride 10 meq/ IV Miscellaneous Supplies 100 ml @ 100 mls/hr Q1H IV 03/05/20 05:45 03/05/20 09:44 DC 03/05/20 11:12 Potassium Chloride 10 meq/ IV Miscellaneous Supplies 100 ml @ 100 mls/hr Q1H IV 03/06/20 00:00 03/06/20 03:59 DC 03/06/20 04:40 Potassium Chloride 10 meq/ IV Miscellaneous Supplies 100 ml @ 100 mls/hr Q1H IV 03/07/20 08:00 03/07/20 11:59 DC 03/07/20 11:36 Potassium Chloride 66.7 meq/ Amino Ac/Electrol/ Dextrose/Calcium 2,033.35 ml @ 50 mls/hr ONCE@1800 IV 03/07/20 18:00 03/08/20 17:59 DC 03/07/20 18:44 Potassium Chloride (Micro-K Extencaps) 30 meq BID PO 03/09/20 09:00 03/13/20 09:08 DC 03/12/20 20:12 Potassium Chloride (Micro-K Extencaps) 40 meq Q4H PO 03/05/20 06:00 03/05/20 10:01 Cancel Potassium Chloride (Potassium Chloride Liquid) 40 meq Q4H PO 03/07/20 20:15 03/08/20 00:16 DC 03/07/20 23:50 Ramelteon (Rozerem) 8 mg QHS PO 03/08/20 22:00 03/12/20 20:11 Simethicone (Mylicon) 120 mg QID PO 03/01/20 21:00 03/02/20 15:02 DC 03/02/20 08:55 Sodium Chloride 1,000 ml @ 150 mls/hr Q6H40M IV 03/01/20 19:15 03/04/20 09:07 DC 03/04/20 07:34 Sodium Chloride 1,000 ml @ 150 mls/hr Q6H40M IV 02/29/20 19:28 03/01/20 19:00 DC 03/01/20 16:33 Sodium Chloride (Saline Lock Flush) 2 ml ASDIRECTED PRN IV SEE LABEL COMMENTS 03/04/20 10:30 03/08/20 14:11 DC Sodium Chloride (Saline Lock Flush) 2 ml SLF IV 03/04/20 14:00 03/08/20 14:11 DC 03/08/20 05:40 Sodium Chloride (Saline Lock Flush) 10 ml ASDIRECTED PRN IV SEE LABEL COMMENTS 03/06/20 18:00 03/13/20 17:13 DC 03/13/20 11:59 Sodium Chloride (Saline Lock Flush) 10 ml PICC IV 03/06/20 18:00 03/13/20 17:13 DC 03/13/20 05:30 Tramadol HCl (Ultram) 50 mg Q6HP PRN PO MODERATE PAIN (PS 5-7) 03/09/20 14:45 03/13/20 12:06 Vancomycin HCl 1000 mg/IV Miscellaneous Supplies 1 each/ Dextrose 270 ml @ 270 mls/hr Q12H IV 03/12/20 20:00 03/13/20 08:40 Allergies Coded Allergies: amoxicillin (Unverified Adverse Reaction, Mild, DIARRHEA, 03/12/20) morphine (Verified Adverse Reaction, Mild, "makes her goofy", 03/12/20) Teri Miller MD Mar 13, 2020 18:05
--- NOTE | 2020-03-13 19:59 | PHACANCOPD ---
PHARMACY VANCOMYCIN DOSING Pt Demographics Demographics Patient Age:84 , Weight:62.700 , Gender: female Adjusted Body Weight Date: 03/13/20, Adjusted Body Weight: Kg Events Past 24 Hours Events Past 24 Hours: NO: Dialysis, Diuretic Therapy, Change in CrCl, Fever, Elevation in WBC, Pending Diagnostics, Pending Procedures, Other Vancomycin Vancomycin indication: UTI Vancomycin Target Ranges: 15-20 mcg/ml Vancomycin Load Y/N: No Load Dose Date Time Vancomycin Load Dose: Date: Time: Vancomycin Dose Date: 03/13/20. Current Vancomycin Dose: [750MG IV Q12H] Intermittent Dosing?: No Labs Labs Item Value Date Time White Blood Count 8.9 10^3/uL 03/11/20 0605 White Blood Count 8.0 10^3/uL 03/12/20 0554 White Blood Count 8.7 10^3/uL 03/13/20 0558 Creatinine 0.50 MG/DL L 03/12/20 0554 Creatinine 0.52 MG/DL L 03/13/20 0558 Vancomycin Level Trough 16.2 UG/ML 03/13/20 1855 Micro Microbiology 03/12/20 Urine Culture - Final, Complete 03/07/20 Urine Culture - Final, Complete Enterococcus Faecium Yeast Like Organism Creatinine Clearance Date:03/13/20. Creatinine Clearance: [71ML/MIN]. Pending Labs VANCOMYCIN TROUGH 03/14 @19:00 Assessment and Plan Maintaining Current Dose?: No Reason for dose change: Trough too high, No Dose Change Pharmacist Note Pharmacist Note Date: 03/13/20. Pharmacist note: Pt trough came back this evening @ 18:55 @16.2mcg/ml prior to the third dose. Vancomycin will be changed to 750mg IV every 12 hours starting 03/13/20 @20:00. A trough is scheduled for 03/14/20 @19:00. We will continue to monitor and adjust the dose as needed. [facility] Mar 13, 2020 19:59
[2020-03-13] MEDS: VANCOMYCIN HCL 750 MG, VIAL MATE ADAPTER 1 EACH in D5W 250 ML IV SCH (20:22)
[2020-03-13] MEDS: PARoxetine 10MG TABLET PO SCH (20:23)
[2020-03-13] MEDS: RAMELTEON 8 MG TAB (ROZEREM) PO SCH (20:23)
[2020-03-13 22:00] VITALS: BP 99/48
[2020-03-13 23:24] VITALS: BP 102/52
[2020-03-14] MEDS: FUROSEMIDE 40MG/4ML VIAL (J1940) IV SCH ×4 (05:00→22:21)
[2020-03-14 05:06] VITALS: BP 98/51
[2020-03-14] MEDS: traMADol 50 MG TAB PO PRN ×3 (05:07→20:16)
[2020-03-14 06:00] VITALS: BP 94/54
[2020-03-14 06:12] LABS: HEMATOCRIT 28.6 % (36.0-47.0); HEMOGLOBIN 9.4 g/dl (12.0-15.5); MEAN CORPUSCULAR HEMOGLOBIN 29.5 pg (27.0-33.0); MEAN CORPUSCULAR HGB CONC 32.9 g/dl (32.0-36.5); MEAN CORPUSCULAR VOLUME 89.7 fl (80.0-96.0); PLATELET COUNT, AUTOMATED 438 10^3/uL (150-450); RED BLOOD COUNT 3.19 10^6/uL (4.00-5.40)
[2020-03-14 06:41] LABS: ALBUMIN 2.2 GM/DL (3.2-5.2); ALT/SGPT 16 U/L (12-78); BILIRUBIN,TOTAL 0.6 MG/DL (0.2-1.0); BLOOD UREA NITROGEN 13 MG/DL (7-18); CALCIUM LEVEL 8.7 MG/DL (8.8-10.2); CARBON DIOXIDE LEVEL 35 MEQ/L (21-32); CHLORIDE LEVEL 92 MEQ/L (98-107); CREATININE FOR GFR 0.65 MG/DL (0.55-1.30); GLOMERULAR FILTRATION RATE > 60.0 (>32); GLUCOSE, FASTING 127 MG/DL (70-100); MAGNESIUM LEVEL 1.9 MG/DL (1.8-2.4); POTASSIUM SERUM 5.1 MEQ/L (3.5-5.1); SODIUM LEVEL 129 MEQ/L (136-145); TOTAL PROTEIN 4.8 GM/DL (6.4-8.2)
[2020-03-14] MEDS: HumaLOG INSULIN (NovoLOG) PER UNIT SC SCH ×4 (07:43→21:00)
[2020-03-14] MEDS: ENOXAPARIN 60MG/0.6ML SYRINGE (J1650 PER 10MG) SC SCH ×2 (08:49→20:15)
[2020-03-14] MEDS: LACTOBACILLUS ACIDOPHILUS CAP (BACID) PO SCH ×4 (08:49→20:15)
[2020-03-14] MEDS: MAGNESIUM OXIDE 400 MG TAB (MAG-OX) PO SCH ×2 (08:50→20:15)
[2020-03-14] MEDS: DIAPER RELIEF PASTE (DESITIN) 60GM TOP SCH ×3 (08:50→20:19)
[2020-03-14] MEDS: VANCOMYCIN HCL 750 MG, VIAL MATE ADAPTER 1 EACH in D5W 250 ML IV SCH (08:50)
[2020-03-14] MEDS: atenoloL 25 MG TAB PO SCH (09:00)
[2020-03-14] MEDS: lisinopriL 20 MG TAB PO SCH (09:01)
[2020-03-14] MEDS: CHOLESTYRAMINE 4 GM PWD PKT PO SCH ×4 (09:54→21:17)
[2020-03-14] MEDS: NS 1,000 ML IV SCH (10:44)
[2020-03-14 14:00] VITALS: BP 99/50
--- NOTE | 2020-03-14 14:13 | IPNPDOC ---
Subjective Date Seen The patient was seen on 03/14/20. Subjective Chief Complaint/HPI Patient is comfortable in no distress offers no complaint at the present time, awaiting rehabilitation placement General: Denies: ROS Unobtainable, Chills, Night Sweats, Fatigue, Malaise, Normal Appetite, Other Symptoms Constitutional: Denies: Chills, Fever, Malaise, Night Sweats, Weakness, Fatigue, Weight Loss, Lethargy, Other Pulmonary: Denies: Dyspnea, Cough, Pleuritic Chest Pain, Other Symptoms Cardiovascular: Denies: Chest Pain, Palpitations, Orthopnea, Paroxysmal Noc. Dyspnea, Edema, Lt Headedness, Other Symptoms Gastrointestinal: Denies: Nausea, Vomiting, Abdominal Pain, Diarrhea, Constipation, Melena, Hematochezia, Other Symptoms Neurological: Denies: Weakness, Numbness, Incoordination, Change in speech, Confusion, Seizures, Other Symptoms Psych: Denies: Mood Normal, Anxiety, Depression, Memory Issues, Thoughts of Self Harm, Anger, Thoughts of Harming Other, Other Psych Objective Physical Examination General Exam: Positive: Alert, Cooperative Eye Exam: Positive: PERRLA, Conjunctiva & lids normal ENT Exam: Positive: Atraumatic Neck Exam: Positive: Supple Chest Exam: Positive: Clear to auscultation, Normal air movement Heart Exam: Positive: Rate Normal, Normal S1, Normal S2 Abdomen Exam: Positive: Normal bowel sounds, Soft Extremity Exam: Positive: Normal pulses Skin Exam: Positive: Nl turgor and temperature Neuro Exam: Positive: Strength at 5/5 X4 ext, Sensation Intact, Cranial Nerves 3-12 NL Psych Exam: Positive: Mood NL, Oriented x 3 Assessment /Plan Problems (1) UTI (urinary tract infection) Status: Acute Problem Text: UTI. Never treated for UA + on 03/07/20, UCx growing E. faecalis, some yeast. DC vancomycin is started by mouth doxycycline as recommended by sensitivities (2) Depressed Status: Chronic Problem Text: Continue home meds (3) Hypomagnesemia Status: Chronic Problem Text: Corrected follow magnesium level in a.m. 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 Improved with current regimen, now caution to not induce constipation.C/w . Abdominal pain 2/2 above Tramadol PRN. Awaiting rehabilitation placement Continue conservative medical management (5) Physical deconditioning Status: Chronic Problem Text: Awaiting rehabilitation placement PT and progress (6) Acute diastolic (congestive) heart failure Status: Chronic Problem Text: Acute diastolic congestive heart failure. -330/24H, edema improving. C/w IV lasix Q8H, ACEi, BB. Plan/VTE VTE Prophylaxis Ordered?: Yes VS, I&O, 24H, Fishbone Vital Signs/I&O Vital Signs Date Time Temp Pulse Resp B/P (MAP) Pulse Ox O2 Delivery O2 Flow Rate FiO2 03/14/20 09:01 114/53 03/14/20 09:00 81 03/14/20 06:00 98.7 18 97 Room Air 03/12/20 17:44 2.0 100 I&O- Last 24 Hours up to 6 AM 03/14/20 06:00 Intake Total 1535 ml Output Total 2575 ml Balance -1040 ml Laboratory Data 24H LABS Laboratory Tests 2 03/13/20 16:45: Bedside Glucose (Misc Panel) 119H 03/13/20 18:55: Vancomycin Level Trough 16.2 03/13/20 20:58: Bedside Glucose (Misc Panel) 163H 03/14/20 05:47: Nucleated Red Blood Cells % (auto) 0.0, Anion Gap 2L, Glomerular Filtration Rate > 60.0, Calcium Level 8.7L, Magnesium Level 1.9, Total Bilirubin 0.6, Aspartate Amino Transf (AST/SGOT) 12, Alanine Aminotransferase (ALT/SGPT) 16, Alkaline Phosphatase 77, Total Protein 4.8L, Albumin 2.2L, Albumin/Globulin Ratio 0.8L 03/14/20 11:11: Bedside Glucose (Misc Panel) 178H CBC/BMP Laboratory Tests 03/14/20 05:47 Microbiology Microbiology 03/12/20 Urine Culture - Final, Complete 03/07/20 Urine Culture - Final, Complete Enterococcus Faecium Yeast Like Organism ARLEN PYLE MD Mar 14, 2020 14:13
[2020-03-14] MEDS: DOXYCYCLINE HYCLATE 100MG TABLET PO SCH ×2 (14:35→20:15)
[2020-03-14] MEDS: oxyCODONE 5MG TAB PO PRN (18:34)
[2020-03-14] MEDS: RAMELTEON 8 MG TAB (ROZEREM) PO SCH (20:15)
[2020-03-14] MEDS: PARoxetine 10MG TABLET PO SCH (20:15)
[2020-03-14 22:00] VITALS: BP 108/58
[2020-03-14 22:21] VITALS: BP 114/52
[2020-03-15 04:22] VITALS: BP 105/55
[2020-03-15] MEDS: FUROSEMIDE 40MG/4ML VIAL (J1940) IV SCH ×2 (04:22→10:54)
[2020-03-15] MEDS: NS 1,000 ML IV SCH (04:35)
[2020-03-15] MEDS: traMADol 50 MG TAB PO PRN ×2 (04:35→20:46)
[2020-03-15 06:00] VITALS: BP 106/54
[2020-03-15] MEDS: CHOLESTYRAMINE 4 GM PWD PKT PO SCH ×3 (07:30→17:49)
[2020-03-15] MEDS: atenoloL 25 MG TAB PO SCH ×2 (09:00→10:54)
[2020-03-15] MEDS: HumaLOG INSULIN (NovoLOG) PER UNIT SC SCH ×4 (09:59→20:45)
[2020-03-15] MEDS: LACTOBACILLUS ACIDOPHILUS CAP (BACID) PO SCH ×4 (10:53→20:45)
[2020-03-15] MEDS: lisinopriL 20 MG TAB PO SCH (10:53)
[2020-03-15] MEDS: MAGNESIUM OXIDE 400 MG TAB (MAG-OX) PO SCH ×2 (10:53→20:45)
[2020-03-15] MEDS: DOXYCYCLINE HYCLATE 100MG TABLET PO SCH ×2 (10:55→20:45)
[2020-03-15] MEDS: oxyCODONE 5MG TAB PO PRN (10:55)
[2020-03-15] MEDS: DIAPER RELIEF PASTE (DESITIN) 60GM TOP SCH ×3 (10:56→20:46)
[2020-03-15] MEDS: ENOXAPARIN 60MG/0.6ML SYRINGE (J1650 PER 10MG) SC SCH ×2 (10:56→20:44)
--- NOTE | 2020-03-15 11:30 | IPNPDOC ---
Subjective Date Seen The patient was seen on 03/15/20. Subjective Chief Complaint/HPI Patient is comfortable offers no new complaints at the present time General: Denies: ROS Unobtainable, Chills, Night Sweats, Fatigue, Malaise, Normal Appetite, Other Symptoms Constitutional: Denies: Chills, Fever, Malaise, Night Sweats, Weakness, Fatigue, Weight Loss, Lethargy, Other Pulmonary: Denies: Dyspnea, Cough, Pleuritic Chest Pain, Other Symptoms Cardiovascular: Denies: Chest Pain, Palpitations, Orthopnea, Paroxysmal Noc. Dyspnea, Edema, Lt Headedness, Other Symptoms Gastrointestinal: Denies: Nausea, Vomiting, Abdominal Pain, Diarrhea, Constipation, Melena, Hematochezia, Other Symptoms Genitourinary: Denies: Dysuria, Frequency, Incontinence, Hematuria, Retention, Other Symptoms Endocrine: Denies: Polydipsia, Polyphagia, Polyuria, Heat Intolerance, Cold Intolerance, Other Endocrine Sx Musculoskeletal: Denies: Neck Pain, Back Pain, Shoulder Pain, Arm Pain, Hand Pain, Leg Pain, Foot Pain, Joint Pain, Muscle Pain, Spasms, Other Symptoms Neurological: Denies: Weakness, Numbness, Incoordination, Change in speech, Confusion, Seizures, Other Symptoms Objective Physical Examination General Exam: Positive: Alert, Cooperative Eye Exam: Positive: PERRLA, Conjunctiva & lids normal ENT Exam: Positive: Atraumatic Neck Exam: Positive: Supple Chest Exam: Positive: Clear to auscultation, Normal air movement Heart Exam: Positive: Rate Normal, Normal S1, Normal S2 Abdomen Exam: Positive: Normal bowel sounds, Soft Extremity Exam: Positive: Normal pulses Skin Exam: Positive: Nl turgor and temperature Neuro Exam: Positive: Strength at 5/5 X4 ext, Sensation Intact, Cranial Nerves 3-12 NL Psych Exam: Positive: Mood NL, Oriented x 3 Assessment /Plan Problems (1) Acute diastolic (congestive) heart failure Status: Chronic Problem Text: Acute diastolic congestive heart failure. Bipedal edema, improved Continue patient's PAU inhibitor, beta kaylyn and diuretics Change Lasix to by mouth 80 mg by mouth twice a day Monitore intake and output (2) UTI (urinary tract infection) Status: Acute Problem Text: Urinary tract infection .Never treated for UA + on 03/07/20, UCx growing E. faecalis, some yeast. vancomycin was DC'd and is started on by mouth doxycycline as recommended by culture and sensitivities Awaiting placement in a rehabilitation facility (3) Depressed Status: Chronic Problem Text: Continue home meds (4) Hypomagnesemia Status: Resolved Problem Text: Corrected follow magnesium level in a.m. 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 Improved with current regimen, now caution to not induce constipation.C/w . Abdominal pain 2/2 above Tramadol PRN. Awaiting rehabilitation placement Continue conservative medical management (6) Physical deconditioning Status: Chronic Problem Text: Awaiting rehabilitation placement PT and progress Plan/VTE VTE Prophylaxis Ordered?: Yes VS, I&O, 24H, Fishbone Vital Signs/I&O Vital Signs Date Time Temp Pulse Resp B/P (MAP) Pulse Ox O2 Delivery O2 Flow Rate FiO2 03/15/20 10:55 20 Room Air 03/15/20 10:53 110/60 03/15/20 06:00 98.9 75 96 03/12/20 17:44 2.0 100 I&O- Last 24 Hours up to 6 AM0 03/15/20 06:00 Intake Total 2715 ml Output Total 2125 ml Balance 590 ml Laboratory Data 24H LABS Laboratory Tests 2 03/14/20 16:14: Bedside Glucose (Misc Panel) 128H 03/14/20 20:29: Bedside Glucose (Misc Panel) 214H 03/15/20 05:52: Bedside Glucose (Misc Panel) 127H Microbiology Microbiology 03/12/20 Urine Culture - Final, Complete 03/07/20 Urine Culture - Final, Complete Enterococcus Faecium Yeast Like Organism ARLEN PYLE MD Mar 15, 2020 11:30
[2020-03-15 12:35] LABS: MAGNESIUM LEVEL 1.8 MG/DL (1.8-2.4)
[2020-03-15 14:00] VITALS: BP 106/56
[2020-03-15 14:27] LABS: BLOOD UREA NITROGEN 16 MG/DL (7-18); CALCIUM LEVEL 8.7 MG/DL (8.8-10.2); CARBON DIOXIDE LEVEL 32 MEQ/L (21-32); CHLORIDE LEVEL 97 MEQ/L (98-107); CREATININE FOR GFR 0.67 MG/DL (0.55-1.30); GLOMERULAR FILTRATION RATE > 60.0 (>32); GLUCOSE, FASTING 92 MG/DL (70-100); POTASSIUM SERUM 4.3 MEQ/L (3.5-5.1); SODIUM LEVEL 131 MEQ/L (136-145)
[2020-03-15] MEDS: FUROSEMIDE 80 MG TAB PO SCH (17:48)
[2020-03-15] MEDS: RAMELTEON 8 MG TAB (ROZEREM) PO SCH (20:45)
[2020-03-15] MEDS: PARoxetine 10MG TABLET PO SCH (20:45)
[2020-03-15 22:00] VITALS: BP 106/52
[2020-03-16] MEDS: CHOLESTYRAMINE 4 GM PWD PKT PO SCH ×5 (00:11→21:42)
[2020-03-16] MEDS: NS 1,000 ML IV SCH (00:14)
[2020-03-16 06:00] VITALS: BP 104/51
[2020-03-16 07:00] LABS: BASO % 0.4 % (0.0-1.0); EOS % 0.9 % (0.0-3.0); HEMATOCRIT 26.8 % (36.0-47.0); LYMPH # 0.8 10^3/uL (1.5-5.0); LYMPH % 17.2 % (24.0-44.0); MEAN CORPUSCULAR HEMOGLOBIN 30.2 pg (27.0-33.0); MEAN CORPUSCULAR HGB CONC 33.6 g/dl (32.0-36.5); MEAN CORPUSCULAR VOLUME 89.9 fl (80.0-96.0); MONO # 0.8 10^3/uL (0.0-0.8); MONO % 17.2 % (0.0-5.0); NEUTROPHILS % 63.9 % (36.0-66.0); PLATELET COUNT, AUTOMATED 381 10^3/uL (150-450); RED BLOOD COUNT 2.98 10^6/uL (4.00-5.40); WHITE BLOOD COUNT 4.7 10^3/uL (4.0-10.0)
[2020-03-16 07:19] LABS: ALBUMIN 1.9 GM/DL (3.2-5.2); ALT/SGPT 12 U/L (12-78); BILIRUBIN,TOTAL 0.3 MG/DL (0.2-1.0); BLOOD UREA NITROGEN 16 MG/DL (7-18); CALCIUM LEVEL 8.5 MG/DL (8.8-10.2); CARBON DIOXIDE LEVEL 30 MEQ/L (21-32); CHLORIDE LEVEL 101 MEQ/L (98-107); CREATININE FOR GFR 0.64 MG/DL (0.55-1.30); GLOMERULAR FILTRATION RATE > 60.0 (>32); GLUCOSE, FASTING 136 MG/DL (70-100); POTASSIUM SERUM 4.2 MEQ/L (3.5-5.1); SODIUM LEVEL 136 MEQ/L (136-145); TOTAL PROTEIN 4.9 GM/DL (6.4-8.2)
[2020-03-16] MEDS: HumaLOG INSULIN (NovoLOG) PER UNIT SC SCH ×4 (08:30→21:00)
[2020-03-16] MEDS: DOXYCYCLINE HYCLATE 100MG TABLET PO SCH ×2 (08:31→20:03)
[2020-03-16] MEDS: FUROSEMIDE 80 MG TAB PO SCH ×2 (08:31→17:32)
[2020-03-16] MEDS: ENOXAPARIN 60MG/0.6ML SYRINGE (J1650 PER 10MG) SC SCH ×2 (08:31→20:02)
[2020-03-16] MEDS: LACTOBACILLUS ACIDOPHILUS CAP (BACID) PO SCH ×4 (08:31→20:03)
[2020-03-16] MEDS: MAGNESIUM OXIDE 400 MG TAB (MAG-OX) PO SCH ×2 (08:31→20:03)
[2020-03-16] MEDS: atenoloL 25 MG TAB PO SCH (08:32)
[2020-03-16] MEDS: lisinopriL 20 MG TAB PO SCH (08:32)
[2020-03-16] MEDS: DIAPER RELIEF PASTE (DESITIN) 60GM TOP SCH ×3 (08:33→20:03)
--- NOTE | 2020-03-16 10:52 | IPNPDOC ---
Subjective Date Seen The patient was seen on 03/16/20. Subjective Chief Complaint/HPI Patient is comfortable in no distress. Offers no new complaints, awaiting rehabilitation placement General: Denies: ROS Unobtainable, Chills, Night Sweats, Fatigue, Malaise, Normal Appetite, Other Symptoms Constitutional: Denies: Chills, Fever, Malaise, Night Sweats, Weakness, Fatigue, Weight Loss, Lethargy, Other Pulmonary: Denies: Dyspnea, Cough, Pleuritic Chest Pain, Other Symptoms Cardiovascular: Denies: Chest Pain, Palpitations, Orthopnea, Paroxysmal Noc. Dyspnea, Edema, Lt Headedness, Other Symptoms Gastrointestinal: Denies: Nausea, Vomiting, Abdominal Pain, Diarrhea, Constipation, Melena, Hematochezia, Other Symptoms Musculoskeletal: Denies: Neck Pain, Back Pain, Shoulder Pain, Arm Pain, Hand Pain, Leg Pain, Foot Pain, Joint Pain, Muscle Pain, Spasms, Other Symptoms Neurological: Denies: Weakness, Numbness, Incoordination, Change in speech, Confusion, Seizures, Other Symptoms Objective Physical Examination General Exam: Positive: Alert, Cooperative Eye Exam: Positive: PERRLA, Conjunctiva & lids normal ENT Exam: Positive: Atraumatic Neck Exam: Positive: Supple Chest Exam: Positive: Clear to auscultation, Normal air movement Heart Exam: Positive: Rate Normal, Normal S1, Normal S2 Abdomen Exam: Positive: Normal bowel sounds, Soft Extremity Exam: Positive: Normal pulses Skin Exam: Positive: Nl turgor and temperature Neuro Exam: Positive: Strength at 5/5 X4 ext, Sensation Intact, Cranial Nerves 3-12 NL Psych Exam: Positive: Mood NL, Oriented x 3 Assessment /Plan Problems (1) Acute diastolic (congestive) heart failure Status: Chronic Problem Text: Acute diastolic congestive heart failure. Bipedal edema, improved Continue patient's PAU inhibitor, beta kaylyn and diuretics Change Lasix to by mouth 80 mg by mouth twice a day I&O is slightly positive, but patient is asymptomatic (2) UTI (urinary tract infection) Status: Acute Problem Text: Urinary tract infection .Never treated for UA + on 03/07/20, UCx growing E. faecalis, some yeast. 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 Improved with current regimen, now caution to not induce constipation.C/w . Abdominal pain 2/2 above Tramadol PRN. Awaiting rehabilitation placement Continue conservative medical management (6) Physical deconditioning Status: Chronic Problem Text: Awaiting rehabilitation placement PT and progress Plan/VTE VTE Prophylaxis Ordered?: Yes VS, I&O, 24H, [facility] Vital Signs/I&O Vital Signs Date Time Temp Pulse Resp B/P (MAP) Pulse Ox O2 Delivery O2 Flow Rate FiO2 03/16/20 08:32 78 113/57 03/16/20 06:00 99.5 17 98 Room Air 03/12/20 17:44 2.0 100 I&O- Last 24 Hours up to 6 AM 03/16/20 06:00 Intake Total 1570 ml Output Total 875 ml Balance 695 ml Laboratory Data 24H LABS Laboratory Tests 2 03/15/20 11:24: Bedside Glucose (Misc Panel) 123H 03/15/20 11:55: Anion Gap 2L, Glomerular Filtration Rate > 60.0, Calcium Level 8.7L, Magnesium Level 1.8 03/15/20 16:29: Bedside Glucose (Misc Panel) 114H 03/15/20 20:40: Bedside Glucose (Misc Panel) 146H 03/16/20 06:36: Immature Granulocyte % (Auto) 0.4, Neutrophils (%) (Auto) 63.9, Lymphocytes (%) (Auto) 17.2L, Monocytes (%) (Auto) 17.2H, Eosinophils (%) (Auto) 0.9, Basophils (%) (Auto) 0.4, Neutrophils # (Auto) 3.0, Lymphocytes # (Auto) 0.8L, Monocytes # (Auto) 0.8, Eosinophils # (Auto) 0.0, Basophils # (Auto) 0.0, Nucleated Red Blood Cells % (auto) 0.0, Anion Gap 5L, Glomerular Filtration Rate > 60.0, Calcium Level 8.5L, Total Bilirubin 0.3, Aspartate Amino Transf (AST/SGOT) 11, Alanine Aminotransferase (ALT/SGPT) 12, Alkaline Phosphatase 71, Total Protein 4.9L, Albumin 1.9L, Albumin/Globulin Ratio 0.6L CBC/BMP Laboratory Tests 03/15/20 11:55 03/16/20 06:36 Microbiology Microbiology 03/12/20 Urine Culture - Final, Complete 03/07/20 Urine Culture - Final, Complete Enterococcus Faecium Yeast Like Organism ARLEN PYLE MD Mar 16, 2020 10:51
[2020-03-16 14:00] VITALS: BP 95/47
[2020-03-16] MEDS: PARoxetine 10MG TABLET PO SCH (20:03)
[2020-03-16] MEDS: RAMELTEON 8 MG TAB (ROZEREM) PO SCH (20:03)
[2020-03-16] MEDS: traMADol 50 MG TAB PO PRN (21:42)
[2020-03-16 22:00] VITALS: BP 118/59
[2020-03-17 06:00] VITALS: BP 119/57
[2020-03-17] MEDS: ENOXAPARIN 60MG/0.6ML SYRINGE (J1650 PER 10MG) SC SCH ×2 (08:06→19:59)
[2020-03-17] MEDS: HumaLOG INSULIN (NovoLOG) PER UNIT SC SCH ×4 (08:07→20:01)
[2020-03-17] MEDS: LACTOBACILLUS ACIDOPHILUS CAP (BACID) PO SCH ×4 (08:07→20:00)
[2020-03-17] MEDS: CHOLESTYRAMINE 4 GM PWD PKT PO SCH ×4 (08:07→20:00)
[2020-03-17] MEDS: MAGNESIUM OXIDE 400 MG TAB (MAG-OX) PO SCH ×2 (08:07→20:00)
[2020-03-17] MEDS: DOXYCYCLINE HYCLATE 100MG TABLET PO SCH ×2 (08:08→20:00)
[2020-03-17] MEDS: lisinopriL 20 MG TAB PO SCH (08:08)
[2020-03-17] MEDS: atenoloL 25 MG TAB PO SCH (08:08)
[2020-03-17] MEDS: FUROSEMIDE 80 MG TAB PO SCH ×2 (08:08→17:15)
[2020-03-17] MEDS: DIAPER RELIEF PASTE (DESITIN) 60GM TOP SCH ×3 (08:09→20:01)
--- NOTE | 2020-03-17 12:08 | IPNPDOC ---
Subjective Date Seen The patient was seen on 03/17/20. Subjective Chief Complaint/HPI Patient had a couple episodes of diarrhea today, but otherwise no other complaints Will send out C. difficile and start patient on Imodium General: Denies: ROS Unobtainable, Chills, Night Sweats, Fatigue, Malaise, Normal Appetite, Other Symptoms Constitutional: Denies: Chills, Fever, Malaise, Night Sweats, Weakness, Fatigue, Weight Loss, Lethargy, Other Skin: Denies: Rash, Lesions, Jaundice, Bruising, Itching, Dry, Breakdown, Nail Changes, Other Pulmonary: Denies: Dyspnea, Cough, Pleuritic Chest Pain, Other Symptoms Cardiovascular: Denies: Chest Pain, Palpitations, Orthopnea, Paroxysmal Noc. Dyspnea, Edema, Lt Headedness, Other Symptoms Gastrointestinal: Reports: Diarrhea Hematologic: Denies: Bruising, Bleeding Excessively, Petecchia, Purpura, Enlarged Lymph Nodes, Other Hematologic Endocrine: Denies: Polydipsia, Polyphagia, Polyuria, Heat Intolerance, Cold Intolerance, Other Endocrine Sx Musculoskeletal: Denies: Neck Pain, Back Pain, Shoulder Pain, Arm Pain, Hand Pain, Leg Pain, Foot Pain, Joint Pain, Muscle Pain, Spasms, Other Symptoms Neurological: Denies: Weakness, Numbness, Incoordination, Change in speech, Confusion, Seizures, Other Symptoms Objective Physical Examination General Exam: Positive: Alert, Cooperative Chest Exam: Positive: Clear to auscultation, Normal air movement Heart Exam: Positive: Rate Normal, Normal S1, Normal S2 Abdomen Exam: Positive: Normal bowel sounds, Soft Extremity Exam: Positive: Normal pulses Skin Exam: Positive: Nl turgor and temperature Assessment /Plan Problems (1) Acute diastolic (congestive) heart failure Status: Chronic Problem Text: Acute diastolic congestive heart failure. Bipedal edema, improved Continue patient's PAU inhibitor, beta kaylyn and diuretics Change Lasix to by mouth 80 mg by mouth twice a day I&O is slightly positive, but patient is asymptomatic (2) UTI (urinary tract infection) Status: Acute Problem Text: Urinary tract infection .Never treated for UA + on 03/07/20, UCx growing E. faecalis, some yeast. 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 Improved with current regimen, now caution to not induce constipation.C/w . Abdominal pain 2/2 above Tramadol PRN. Awaiting rehabilitation placement Continue conservative medical management (6) Physical deconditioning Status: Chronic Problem Text: Awaiting rehabilitation placement PT and progress Plan/VTE VTE Prophylaxis Ordered?: Yes VS, I&O, 24H, Fishbone Vital Signs/I&O Vital Signs Date Time Temp Pulse Resp B/P (MAP) Pulse Ox O2 Delivery O2 Flow Rate FiO2 03/17/20 08:08 79 115/59 03/17/20 06:00 97.7 17 98 Room Air 03/12/20 17:44 2.0 100 I&O- Last 24 Hours up to 6 AM 03/17/20 06:00 Intake Total 965 ml Output Total 1500 ml Balance -535 ml Laboratory Data 24H LABS Laboratory Tests 2 03/16/20 17:28: Bedside Glucose (Misc Panel) 179H 03/16/20 21:30: Bedside Glucose (Misc Panel) 104 03/17/20 05:58: Bedside Glucose (Misc Panel) 121H 03/17/20 11:28: Bedside Glucose (Misc Panel) 141H Microbiology Microbiology 03/12/20 Urine Culture - Final, Complete 03/07/20 Urine Culture - Final, Complete Enterococcus Faecium Yeast Like Organism ARLEN PYLE MD Mar 17, 2020 12:08
[2020-03-17] MEDS: LOPERAMIDE 2 MG CAPLET PO PRN ×2 (12:33→17:15)
[2020-03-17] MEDS: PARoxetine 10MG TABLET PO SCH (19:59)
[2020-03-17] MEDS: RAMELTEON 8 MG TAB (ROZEREM) PO SCH (20:00)
[2020-03-17] MEDS: oxyCODONE 5MG TAB PO PRN (20:14)
[2020-03-17 22:00] VITALS: BP 99/47
[2020-03-18 01:00] VITALS: BP 99/46
[2020-03-18] MEDS ORDERED: ACETAMINOPHEN TAB 650MG DOSE (2X325MG) PO PRN (01:45)
[2020-03-18 06:00] VITALS: BP 118/54
[2020-03-18 06:09] LABS: BASO % 0.2 % (0.0-1.0); EOS # 0.1 10^3/uL (0.0-0.5); EOS % 1.4 % (0.0-3.0); HEMATOCRIT 27.7 % (36.0-47.0); HEMOGLOBIN 9.1 g/dl (12.0-15.5); LYMPH # 1.1 10^3/uL (1.5-5.0); LYMPH % 24.5 % (24.0-44.0); MEAN CORPUSCULAR HEMOGLOBIN 29.4 pg (27.0-33.0); MEAN CORPUSCULAR HGB CONC 32.9 g/dl (32.0-36.5); MEAN CORPUSCULAR VOLUME 89.6 fl (80.0-96.0); MONO # 0.6 10^3/uL (0.0-0.8); NEUTROPHILS # 2.6 10^3/uL (1.5-8.5); NEUTROPHILS % 59.2 % (36.0-66.0); PLATELET COUNT, AUTOMATED 355 10^3/uL (150-450); RED BLOOD COUNT 3.09 10^6/uL (4.00-5.40); WHITE BLOOD COUNT 4.4 10^3/uL (4.0-10.0)
[2020-03-18 06:26] LABS: ALBUMIN 2.1 GM/DL (3.2-5.2); ALT/SGPT 11 U/L (12-78); BILIRUBIN,TOTAL 0.2 MG/DL (0.2-1.0); BLOOD UREA NITROGEN 11 MG/DL (7-18); CALCIUM LEVEL 8.2 MG/DL (8.8-10.2); CARBON DIOXIDE LEVEL 27 MEQ/L (21-32); CHLORIDE LEVEL 105 MEQ/L (98-107); CREATININE FOR GFR 0.49 MG/DL (0.55-1.30); GLOMERULAR FILTRATION RATE > 60.0 (>32); GLUCOSE, FASTING 121 MG/DL (70-100); POTASSIUM SERUM 4.2 MEQ/L (3.5-5.1); SODIUM LEVEL 140 MEQ/L (136-145); TOTAL PROTEIN 4.5 GM/DL (6.4-8.2)
[2020-03-18] MEDS: traMADol 50 MG TAB PO PRN ×2 (06:28→12:52)
[2020-03-18] MEDS: ENOXAPARIN 60MG/0.6ML SYRINGE (J1650 PER 10MG) SC SCH ×2 (08:37→20:06)
[2020-03-18] MEDS: MAGNESIUM OXIDE 400 MG TAB (MAG-OX) PO SCH ×2 (08:38→20:06)
[2020-03-18] MEDS: CHOLESTYRAMINE 4 GM PWD PKT PO SCH ×4 (08:38→20:05)
[2020-03-18] MEDS: lisinopriL 20 MG TAB PO SCH (08:38)
[2020-03-18] MEDS: FUROSEMIDE 80 MG TAB PO SCH ×2 (08:38→17:16)
[2020-03-18] MEDS: LACTOBACILLUS ACIDOPHILUS CAP (BACID) PO SCH ×4 (08:38→20:07)
[2020-03-18] MEDS: HumaLOG INSULIN (NovoLOG) PER UNIT SC SCH ×4 (08:38→20:48)
[2020-03-18] MEDS: DOXYCYCLINE HYCLATE 100MG TABLET PO SCH ×2 (08:39→20:06)
[2020-03-18] MEDS: atenoloL 25 MG TAB PO SCH (08:39)
[2020-03-18] MEDS: DIAPER RELIEF PASTE (DESITIN) 60GM TOP SCH ×3 (08:40→20:07)
[2020-03-18] MEDS: LOMOTIL 2.5MG/0.025MG TABLET PO SCH ×2 (11:23→20:06)
--- NOTE | 2020-03-18 13:50 | IPNPDOC ---
Subjective Date Seen The patient was seen on 03/18/20. Subjective Chief Complaint/HPI Patient is comfortable offers no new complaints, awaiting placement. No more diarrhea today General: Denies: ROS Unobtainable, Chills, Night Sweats, Fatigue, Malaise, Normal Appetite, Other Symptoms Skin: Denies: Rash, Lesions, Jaundice, Bruising, Itching, Dry, Breakdown, Nail Changes, Other Pulmonary: Denies: Dyspnea, Cough, Pleuritic Chest Pain, Other Symptoms Cardiovascular: Denies: Chest Pain, Palpitations, Orthopnea, Paroxysmal Noc. Dyspnea, Edema, Lt Headedness, Other Symptoms Gastrointestinal: Denies: Nausea, Vomiting, Abdominal Pain, Diarrhea, Constipation, Melena, Hematochezia, Other Symptoms Musculoskeletal: Denies: Neck Pain, Back Pain, Shoulder Pain, Arm Pain, Hand Pain, Leg Pain, Foot Pain, Joint Pain, Muscle Pain, Spasms, Other Symptoms Neurological: Denies: Weakness, Numbness, Incoordination, Change in speech, Confusion, Seizures, Other Symptoms Psych: Denies: Mood Normal, Anxiety, Depression, Memory Issues, Thoughts of Self Harm, Anger, Thoughts of Harming Other, Other Psych Objective Physical Examination General Exam: Positive: Alert, Cooperative Chest Exam: Positive: Clear to auscultation, Normal air movement Heart Exam: Positive: Rate Normal, Normal S1, Normal S2 Abdomen Exam: Positive: Normal bowel sounds, Soft Extremity Exam: Positive: Normal pulses Skin Exam: Positive: Nl turgor and temperature Assessment /Plan Problems (1) Acute diastolic (congestive) heart failure Status: Chronic Problem Text: Acute diastolic congestive heart failure. Bipedal edema, improved Continue patient's PAU inhibitor, beta kaylyn and diuretics Change Lasix to by mouth 80 mg by mouth twice a day Patient I and O shows balance of -480 Continue the current dose of diuretics and monitor I&O's (2) UTI (urinary tract infection) Status: Acute Problem Text: Urinary tract infection .Never treated for UA + on 03/07/20, UCx growing E. faecalis, some yeast. 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 Improved with current regimen, now caution to not induce constipation.C/w . Abdominal pain 2/2 above Tramadol PRN. Awaiting rehabilitation placement Continue conservative medical management (6) Physical deconditioning Status: Chronic Problem Text: Awaiting rehabilitation placement PT and progress Plan/VTE VTE Prophylaxis Ordered?: Yes VS, I&O, 24H, Fishbone Vital Signs/I&O Vital Signs Date Time Temp Pulse Resp B/P (MAP) Pulse Ox O2 Delivery O2 Flow Rate FiO2 03/18/20 12:52 19 03/18/20 08:39 69 115/57 03/18/20 06:00 98.4 98 Room Air 03/12/20 17:44 2.0 100 I&O- Last 24 Hours up to 6 AM 03/18/20 06:00 Intake Total 450 ml Output Total 900 ml Balance -450 ml Laboratory Data 24H LABS Laboratory Tests 2 03/17/20 16:27: Bedside Glucose (Misc Panel) 152H 03/17/20 19:56: Bedside Glucose (Misc Panel) 98 03/18/20 05:50: Immature Granulocyte % (Auto) 0.7, Neutrophils (%) (Auto) 59.2, Lymphocytes (%) (Auto) 24.5, Monocytes (%) (Auto) 14.0H, Eosinophils (%) (Auto) 1.4, Basophils (%) (Auto) 0.2, Neutrophils # (Auto) 2.6, Lymphocytes # (Auto) 1.1L, Monocytes # (Auto) 0.6, Eosinophils # (Auto) 0.1, Basophils # (Auto) 0.0, Nucleated Red Blood Cells % (auto) 0.0, Anion Gap 8, Glomerular Filtration Rate > 60.0, Calcium Level 8.2L, Total Bilirubin 0.2, Aspartate Amino Transf (AST/SGOT) 10, Alanine Aminotransferase (ALT/SGPT) 11L, Alkaline Phosphatase 72, Total Protein 4.5L, Albumin 2.1L, Albumin/Globulin Ratio 0.9L 03/18/20 11:42: Bedside Glucose (Misc Panel) 122H CBC/BMP Laboratory Tests 03/18/20 05:50 Microbiology Microbiology 03/12/20 Urine Culture - Final, Complete ARLEN PYLE MD Mar 18, 2020 13:50
[2020-03-18 14:00] VITALS: BP 95/42
--- NOTE | 2020-03-18 18:32 | IPN ---
DATE: 03/18/2020 Patient had some significant diarrhea after being off the Imodium for several days and was given just two Lomotil last night and has not had a bowel movement again for over 12-18 hours since two Lomotil. In any case, she is still taking her cholestyramine Otherwise, she is sleeping comfortably in bed, and nurses report that there are no other significant issues at this time. IMPRESSION AND PLAN: The patient's gastrointestinal (GI) issues still seem to need some modification of her medications, and this is one where it probably will be a trial and error of which combination will work best for her with a combination of cholestyramine and Lomotil, but overall I do not feel that this should stop her being transferred to subacute rehabilitation or acute rehabilitation. Otherwise, no other significant intervention is necessary at this time. I anticipate over time as well that her GI tract will start to accommodate better, and the diarrhea issue will start to improve, and as that improves, she will need to be weaned off her medications, but at this point, once again, this as a trial and error for the amount of medication that she is going to need, and at this point I have restarted her on the Lomotil twice a day, and we will see how that affects her.
[2020-03-18] MEDS: PARoxetine 10MG TABLET PO SCH (20:05)
[2020-03-18] MEDS: RAMELTEON 8 MG TAB (ROZEREM) PO SCH (20:06)
[2020-03-18 21:00] VITALS: BP 97/47
[2020-03-18 22:00] VITALS: BP 97/47
[2020-03-18] MEDS: oxyCODONE 5MG TAB PO PRN (22:02)
[2020-03-19 06:00] VITALS: BP 104/46
[2020-03-19 06:31] LABS: BASO % 0.2 % (0.0-1.0); EOS # 0.1 10^3/uL (0.0-0.5); EOS % 1.7 % (0.0-3.0); HEMATOCRIT 28.3 % (36.0-47.0); HEMOGLOBIN 9.1 g/dl (12.0-15.5); LYMPH # 1.3 10^3/uL (1.5-5.0); LYMPH % 31.1 % (24.0-44.0); MEAN CORPUSCULAR HGB CONC 32.2 g/dl (32.0-36.5); MEAN CORPUSCULAR VOLUME 90.1 fl (80.0-96.0); MONO # 0.6 10^3/uL (0.0-0.8); MONO % 13.8 % (0.0-5.0); NEUTROPHILS # 2.1 10^3/uL (1.5-8.5); PLATELET COUNT, AUTOMATED 325 10^3/uL (150-450); RED BLOOD COUNT 3.14 10^6/uL (4.00-5.40); WHITE BLOOD COUNT 4.1 10^3/uL (4.0-10.0)
[2020-03-19 06:53] LABS: ALT/SGPT 15 U/L (12-78); BILIRUBIN,TOTAL 0.2 MG/DL (0.2-1.0); BLOOD UREA NITROGEN 12 MG/DL (7-18); CALCIUM LEVEL 8.2 MG/DL (8.8-10.2); CARBON DIOXIDE LEVEL 28 MEQ/L (21-32); CHLORIDE LEVEL 106 MEQ/L (98-107); CREATININE FOR GFR 0.63 MG/DL (0.55-1.30); GLOMERULAR FILTRATION RATE > 60.0 (>32); GLUCOSE, FASTING 110 MG/DL (70-100); MAGNESIUM LEVEL 1.5 MG/DL (1.8-2.4); POTASSIUM SERUM 4.2 MEQ/L (3.5-5.1); SODIUM LEVEL 140 MEQ/L (136-145); TOTAL PROTEIN 4.5 GM/DL (6.4-8.2)
[2020-03-19] MEDS: FUROSEMIDE 80 MG TAB PO SCH (08:01)
[2020-03-19] MEDS: ENOXAPARIN 60MG/0.6ML SYRINGE (J1650 PER 10MG) SC SCH ×2 (08:01→20:29)
[2020-03-19] MEDS: CHOLESTYRAMINE 4 GM PWD PKT PO SCH ×4 (08:01→22:08)
[2020-03-19] MEDS: LACTOBACILLUS ACIDOPHILUS CAP (BACID) PO SCH ×4 (08:01→20:29)
[2020-03-19] MEDS: HumaLOG INSULIN (NovoLOG) PER UNIT SC SCH ×4 (08:01→20:05)
[2020-03-19] MEDS: atenoloL 25 MG TAB PO SCH (08:02)
[2020-03-19] MEDS: DOXYCYCLINE HYCLATE 100MG TABLET PO SCH ×2 (08:02→20:30)
[2020-03-19] MEDS: lisinopriL 20 MG TAB PO SCH (08:02)
[2020-03-19] MEDS: MAGNESIUM OXIDE 400 MG TAB (MAG-OX) PO SCH ×2 (08:02→20:29)
[2020-03-19] MEDS: DIAPER RELIEF PASTE (DESITIN) 60GM TOP SCH ×3 (08:03→20:31)
[2020-03-19] MEDS: LOMOTIL 2.5MG/0.025MG TABLET PO SCH ×2 (08:04→20:29)
[2020-03-19] MEDS: traMADol 50 MG TAB PO PRN ×2 (11:04→20:30)
[2020-03-19] MEDS: LOPERAMIDE 2 MG CAPLET PO PRN (11:04)
--- NOTE | 2020-03-19 11:56 | IPNPDOC ---
Subjective Date Seen The patient was seen on 03/19/20. Subjective Chief Complaint/HPI Patient comfortable in no distress of unknown complaints General: Denies: ROS Unobtainable, Chills, Night Sweats, Fatigue, Malaise, Normal Appetite, Other Symptoms Constitutional: Denies: Chills, Fever, Malaise, Night Sweats, Weakness, Fatigue, Weight Loss, Lethargy, Other Pulmonary: Denies: Dyspnea, Cough, Pleuritic Chest Pain, Other Symptoms Cardiovascular: Denies: Chest Pain, Palpitations, Orthopnea, Paroxysmal Noc. Dyspnea, Edema, Lt Headedness, Other Symptoms Gastrointestinal: Denies: Nausea, Vomiting, Abdominal Pain, Diarrhea, Constipation, Melena, Hematochezia, Other Symptoms Musculoskeletal: Denies: Neck Pain, Back Pain, Shoulder Pain, Arm Pain, Hand Pain, Leg Pain, Foot Pain, Joint Pain, Muscle Pain, Spasms, Other Symptoms Neurological: Denies: Weakness, Numbness, Incoordination, Change in speech, Confusion, Seizures, Other Symptoms Objective Physical Examination General Exam: Positive: Alert, Cooperative Chest Exam: Positive: Clear to auscultation, Normal air movement Heart Exam: Positive: Rate Normal, Normal S1, Normal S2 Abdomen Exam: Positive: Normal bowel sounds, Soft Extremity Exam: Positive: Normal pulses Skin Exam: Positive: Nl turgor and temperature Assessment /Plan Problems (1) Acute diastolic (congestive) heart failure Status: Chronic Problem Text: Acute diastolic congestive heart failure. Bipedal edema, improved Continue patient's PAU inhibitor, beta kaylyn and diuretics Change Lasix to 80 mg by mouth daily from tomorrow Repeat portable chest x-ray Patient is still in negative balance Continue the current dose of diuretics and monitor I&O's (2) UTI (urinary tract infection) Status: Acute Problem Text: Urinary tract infection .Never treated for UA + on 03/07/20, UCx growing E. faecalis, some yeast. 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 Improved with current regimen, now caution to not induce constipation.C/w . Abdominal pain 2/2 above Tramadol PRN. Awaiting rehabilitation placement Continue conservative medical management (6) Physical deconditioning Status: Chronic Problem Text: Awaiting rehabilitation placement PT and progress Plan/VTE VTE Prophylaxis Ordered?: Yes VS, I&O, 24H, Fishbone Vital Signs/I&O Vital Signs Date Time Temp Pulse Resp B/P (MAP) Pulse Ox O2 Delivery O2 Flow Rate FiO2 03/19/20 11:34 18 03/19/20 08:02 69 114/77 03/19/20 06:00 99.4 97 Room Air I&O- Last 24 Hours up to 6 AM 03/19/20 06:00 Intake Total 780 ml Output Total 1450 ml Balance -670 ml Laboratory Data 24H LABS Laboratory Tests 2 03/18/20 16:28: Bedside Glucose (Misc Panel) 124H 03/18/20 19:50: Bedside Glucose (Misc Panel) 122H 03/19/20 05:55: Immature Granulocyte % (Auto) 0.2, Neutrophils (%) (Auto) 53.0, Lymphocytes (%) (Auto) 31.1, Monocytes (%) (Auto) 13.8H, Eosinophils (%) (Auto) 1.7, Basophils (%) (Auto) 0.2, Neutrophils # (Auto) 2.1, Lymphocytes # (Auto) 1.3L, Monocytes # (Auto) 0.6, Eosinophils # (Auto) 0.1, Basophils # (Auto) 0.0, Nucleated Red Blood Cells % (auto) 0.0, Anion Gap 6L, Glomerular Filtration Rate > 60.0, Calcium Level 8.2L, Magnesium Level 1.5L, Total Bilirubin 0.2, Aspartate Amino Transf (AST/SGOT) 13, Alanine Aminotransferase (ALT/SGPT) 15, Alkaline Phosphatase 76, Total Protein 4.5L, Albumin 2.0L, Albumin/Globulin Ratio 0.8L 03/19/20 11:19: Bedside Glucose (Misc Panel) 108 CBC/BMP Laboratory Tests 03/19/20 05:55 Microbiology Microbiology 03/12/20 Urine Culture - Final, Complete ARLEN PYLE MD Mar 19, 2020 11:56
--- NOTE | 2020-03-19 12:34 | REP ---
Clinical: Shortness of breath. Possible CHF. Comparison: 03/04/2020 . Findings: The mediastinum and cardiac silhouette are stable. The lung ferreira demonstrate diffuse chronic-appearing interstitial changes. Left basilar atelectasis and small pleural effusion cannot be excluded. No pneumothorax. Skeletal structures are stable and again demonstrate scoliosis and degenerative changes. Impression: No significant change from prior examination. Left basilar atelectasis and small left pleural effusion cannot definitively be excluded. No definite evidence for CHF. Electronically Signed by Isaiah Shane MD 03/19/2020 12:25 P
[2020-03-19 14:00] VITALS: BP 105/45
[2020-03-19] MEDS: PARoxetine 10MG TABLET PO SCH (20:30)
[2020-03-19] MEDS: RAMELTEON 8 MG TAB (ROZEREM) PO SCH (20:30)
[2020-03-19 22:00] VITALS: BP 110/49
[2020-03-20 06:00] VITALS: BP 117/53
[2020-03-20] MEDS: atenoloL 25 MG TAB PO SCH (08:40)
[2020-03-20] MEDS: lisinopriL 20 MG TAB PO SCH (08:49)
[2020-03-20] MEDS: CHOLESTYRAMINE 4 GM PWD PKT PO SCH ×4 (08:50→21:44)
[2020-03-20] MEDS: ENOXAPARIN 60MG/0.6ML SYRINGE (J1650 PER 10MG) SC SCH ×2 (08:50→20:31)
[2020-03-20] MEDS: HumaLOG INSULIN (NovoLOG) PER UNIT SC SCH ×4 (08:51→21:00)
[2020-03-20] MEDS: traMADol 50 MG TAB PO PRN ×2 (08:51→21:44)
[2020-03-20] MEDS: LACTOBACILLUS ACIDOPHILUS CAP (BACID) PO SCH ×4 (08:51→20:32)
[2020-03-20] MEDS: FUROSEMIDE 80 MG TAB PO SCH (08:51)
[2020-03-20] MEDS: LOMOTIL 2.5MG/0.025MG TABLET PO SCH ×2 (08:52→20:32)
[2020-03-20] MEDS: MAGNESIUM OXIDE 400 MG TAB (MAG-OX) PO SCH ×2 (08:52→20:32)
[2020-03-20] MEDS: DIAPER RELIEF PASTE (DESITIN) 60GM TOP SCH ×3 (08:52→20:31)
[2020-03-20] MEDS: DOXYCYCLINE HYCLATE 100MG TABLET PO SCH (08:52)
--- NOTE | 2020-03-20 11:25 | IPNPDOC ---
Subjective Date Seen The patient was seen on 03/20/20. Subjective Chief Complaint/HPI Patient is comfortable in no distress. The diarrhea has resolved General: Denies: ROS Unobtainable, Chills, Night Sweats, Fatigue, Malaise, Normal Appetite, Other Symptoms Constitutional: Denies: Chills, Fever, Malaise, Night Sweats, Weakness, Fatigue, Weight Loss, Lethargy, Other Pulmonary: Denies: Dyspnea, Cough, Pleuritic Chest Pain, Other Symptoms Cardiovascular: Denies: Chest Pain, Palpitations, Orthopnea, Paroxysmal Noc. Dyspnea, Edema, Lt Headedness, Other Symptoms Gastrointestinal: Denies: Nausea, Vomiting, Abdominal Pain, Diarrhea, Constipation, Melena, Hematochezia, Other Symptoms Musculoskeletal: Denies: Neck Pain, Back Pain, Shoulder Pain, Arm Pain, Hand Pain, Leg Pain, Foot Pain, Joint Pain, Muscle Pain, Spasms, Other Symptoms Neurological: Denies: Weakness, Numbness, Incoordination, Change in speech, Confusion, Seizures, Other Symptoms Objective Physical Examination General Exam: Positive: Alert, Cooperative Chest Exam: Positive: Clear to auscultation, Normal air movement Heart Exam: Positive: Rate Normal, Normal S1, Normal S2 Abdomen Exam: Positive: Normal bowel sounds, Soft Extremity Exam: Positive: Normal pulses Skin Exam: Positive: Nl turgor and temperature Assessment /Plan Problems (1) Acute diastolic (congestive) heart failure Status: Resolved Problem Text: Acute diastolic congestive heart failure. Bipedal edema, improved Continue patient's PAU inhibitor, beta kaylyn and diuretics Continue Lasix as per orders Repeat portable chest x-ray: Impression: No significant change from prior examination. Left basilar atelectasis and small left pleural effusion cannot definitively be excluded. No definite evidence for CHF. Patient is still in negative balance Continue the current dose of diuretics, Lasix 80 mg by mouth daily as maintenance dose Monitor I&O's (2) UTI (urinary tract infection) Status: Acute Problem Text: Urinary tract infection .Never treated for UA + on 03/07/20, UCx growing E. faecalis, some yeast. Initially, Vanco, Zosyn was started which was DC'd and was started on doxycy love Doxycycline course was finished and was DC'd on no antibiotics at present Awaiting placement in a rehabilitation facility (3) Depressed Status: Chronic Problem Text: Continue home meds (4) Hypomagnesemia Status: Acute Problem Text: Make sulfate 1 g IV 1 ordered Repeat levels in a.m. 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 Improved with current regimen, now caution to not induce constipation.C/w . Abdominal pain 2/2 above Tramadol PRN. Awaiting rehabilitation placement Continue conservative medical management (6) Physical deconditioning Status: Chronic Problem Text: Awaiting rehabilitation placement PT and progress Plan/VTE VTE Prophylaxis Ordered?: Yes VS, I&O, 24H, Fishbone Vital Signs/I&O Vital Signs Date Time Temp Pulse Resp B/P (MAP) Pulse Ox O2 Delivery O2 Flow Rate FiO2 03/20/20 09:21 18 Room Air 03/20/20 08:49 114/52 03/20/20 08:40 72 03/20/20 06:00 97.2 96 I&O- Last 24 Hours up to 6 AM 03/20/20 06:00 Intake Total 1080 ml Output Total 1200 ml Balance -120 ml Laboratory Data 24H LABS Laboratory Tests 2 03/19/20 16:31: Bedside Glucose (Misc Panel) 124H 03/19/20 19:33: Bedside Glucose (Misc Panel) 94 03/20/20 05:48: Bedside Glucose (Misc Panel) 111H Microbiology Microbiology 03/12/20 Urine Culture - Final, Complete ARLEN PYLE MD Mar 20, 2020 11:25
[2020-03-20] MEDS ORDERED: MAG SULF 1GM/100ML (MAG RUN) 1 GM in IV 1 EA IV ONE (11:30)
[2020-03-20] MEDS: NS 1,000 ML IV SCH (13:33)
[2020-03-20 14:00] VITALS: BP 130/59
[2020-03-20] MEDS: oxyCODONE 5MG TAB PO PRN (17:49)
[2020-03-20] MEDS: PARoxetine 10MG TABLET PO SCH (20:31)
[2020-03-20] MEDS: RAMELTEON 8 MG TAB (ROZEREM) PO SCH (20:32)
[2020-03-20 22:00] VITALS: BP 121/58
[2020-03-21] MEDS: NS 1,000 ML IV SCH (05:05)
[2020-03-21 06:00] VITALS: BP 133/69
[2020-03-21 07:02] LABS: BASO % 0.3 % (0.0-1.0); EOS # 0.1 10^3/uL (0.0-0.5); EOS % 1.2 % (0.0-3.0); HEMATOCRIT 28.5 % (36.0-47.0); HEMOGLOBIN 9.4 g/dl (12.0-15.5); LYMPH # 1.1 10^3/uL (1.5-5.0); MEAN CORPUSCULAR HEMOGLOBIN 29.7 pg (27.0-33.0); MEAN CORPUSCULAR VOLUME 90.2 fl (80.0-96.0); MONO # 0.5 10^3/uL (0.0-0.8); MONO % 9.2 % (0.0-5.0); PLATELET COUNT, AUTOMATED 318 10^3/uL (150-450); RED BLOOD COUNT 3.16 10^6/uL (4.00-5.40); WHITE BLOOD COUNT 5.8 10^3/uL (4.0-10.0)
[2020-03-21 07:29] LABS: ALT/SGPT 12 U/L (12-78); BILIRUBIN,TOTAL 0.2 MG/DL (0.2-1.0); BLOOD UREA NITROGEN 9 MG/DL (7-18); CARBON DIOXIDE LEVEL 23 MEQ/L (21-32); CHLORIDE LEVEL 108 MEQ/L (98-107); GLOMERULAR FILTRATION RATE > 60.0 (>32); GLUCOSE, FASTING 114 MG/DL (70-100); MAGNESIUM LEVEL 1.7 MG/DL (1.8-2.4); POTASSIUM SERUM 4.2 MEQ/L (3.5-5.1); SODIUM LEVEL 139 MEQ/L (136-145); TOTAL PROTEIN 4.5 GM/DL (6.4-8.2)
[2020-03-21] MEDS: HumaLOG INSULIN (NovoLOG) PER UNIT SC SCH ×2 (07:30→08:28)
[2020-03-21] MEDS: MAGNESIUM OXIDE 400 MG TAB (MAG-OX) PO SCH (08:28)
[2020-03-21] MEDS: CHOLESTYRAMINE 4 GM PWD PKT PO SCH (08:28)
[2020-03-21 08:29] VITALS: BP 141/72
[2020-03-21] MEDS: LACTOBACILLUS ACIDOPHILUS CAP (BACID) PO SCH (08:29)
[2020-03-21] MEDS: atenoloL 25 MG TAB PO SCH (08:29)
[2020-03-21] MEDS: FUROSEMIDE 80 MG TAB PO SCH (08:29)
[2020-03-21] MEDS: lisinopriL 20 MG TAB PO SCH (08:30)
[2020-03-21] MEDS: traMADol 50 MG TAB PO PRN (08:30)
[2020-03-21] MEDS: DIAPER RELIEF PASTE (DESITIN) 60GM TOP SCH (08:30)
[2020-03-21] MEDS: LOMOTIL 2.5MG/0.025MG TABLET PO SCH (08:31)
[2020-03-21] MEDS: ENOXAPARIN 60MG/0.6ML SYRINGE (J1650 PER 10MG) SC SCH (08:31)
[2020-03-21] MEDS ORDERED: ANTI2TAB16 PO (12:45)
[2020-03-21] MEDS ORDERED: PARO5TAB PO (12:45)
[2020-03-21] MEDS ORDERED: FURO80TA2 PO (12:45)
[2020-03-21] MEDS ORDERED: RISATAB3 PO (12:45)
[2020-03-21] MEDS ORDERED: ATEN25TA PO (12:45)
[2020-03-21] MEDS ORDERED: Petrolatum,White TOP (12:45)
[2020-03-21] MEDS ORDERED: DIPH2.5T15 PO (12:45)
[2020-03-21] MEDS ORDERED: RAME8TAB2 PO (12:45)
[2020-03-21] MEDS ORDERED: TRAM50TA2 PO (12:45)
[2020-03-21] MEDS ORDERED: MAG400TA PO (12:45)
[2020-03-21] MEDS ORDERED: CHOL4PW PO (12:45)
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
== END 2020-03-21 13:30 | DRG 329 ==
LOC: M ED 18:56 → M ED INP 03-01 00:39 → ENRESERV 03-01 01:39 → M MS5PR 03-01 02:15 → M PCU 03-03 19:02 → M MSPAV 03-07 15:50
PROVIDERS: ADMIT Internal Medicine; ATTEND Neuromusculoskeletal Medicine & OMM
PROC: 0DB80ZZ Excision of Small Intestine, Open Approach (ICD-10-PCS; principal; 2020-03-01)
PROC: 02HV33Z Insertion of Infusion Device into Superior Vena Cava, Percutaneous Approach (ICD-10-PCS; 2020-03-06)
DX: K46.0 Unspecified abdominal hernia with obstruction, without gangrene (principal); I50.31 Acute diastolic (congestive) heart failure; R18.8 Other ascites; K56.7 Ileus, unspecified; J98.11 Atelectasis; E87.1 Hypo-osmolality and hyponatremia; N39.0 Urinary tract infection, site not specified; F11.921 Opioid use, unspecified with intoxication delirium; J90 Pleural effusion, not elsewhere classified; I11.0 Hypertensive heart disease with heart failure; K86.89 Other specified diseases of pancreas; R19.7 Diarrhea, unspecified; E11.9 Type 2 diabetes mellitus without complications; E78.5 Hyperlipidemia, unspecified; Z79.899 Other long term (current) drug therapy; Z88.0 Allergy status to penicillin; Z88.5 Allergy status to narcotic agent; E87.70 Fluid overload, unspecified; E87.6 Hypokalemia; E83.42 Hypomagnesemia; F32.9 Major depressive disorder, single episode, unspecified

== ENCOUNTER → 2020-03-27 | Outpatient (REF) ==
[~2020-03-27] MED LIST: ANTI2TAB16 PO; ATEN25TA PO; ATOR1TAB19 PO; ATOR1TAB21 PO; CHOL4PW PO; DIPH2.5T15 PO; FURO80TA2 PO; JANU50TA8 PO; LISI-538 PO; LISI10TA4 PO; MAG400TA PO; NITR50CA34 PO; OXYC-517 PO; PARO5TAB PO; Petrolatum,White TOP; RAME8TAB2 PO; RISATAB3 PO; TORS10TA3 PO; TRAM50TA2 PO
[2020-03-27 09:52] LABS: HEMATOCRIT 32.3 % (36.0-47.0); HEMOGLOBIN 10.2 g/dl (12.0-15.5); MEAN CORPUSCULAR HEMOGLOBIN 29.3 pg (27.0-33.0); MEAN CORPUSCULAR HGB CONC 31.6 g/dl (32.0-36.5); MEAN CORPUSCULAR VOLUME 92.8 fl (80.0-96.0); PLATELET COUNT, AUTOMATED 379 10^3/uL (150-450); RED BLOOD COUNT 3.48 10^6/uL (4.00-5.40); WHITE BLOOD COUNT 6.9 10^3/uL (4.0-10.0)
[2020-03-27 10:09] LABS: APPEARANCE, URINE CLOUDY (CLEAR); BACTERIA, URINE AUTO 2+ (NEGATIVE); BILIRUBIN, URINE AUTO NEGATIVE (NEGATIVE); BLOOD, URINE BLOOD 2+ (NEGATIVE); COLOR, URINE YELLOW (YELLOW); GLUCOSE, URINE (UA) AUTO NEGATIVE (NEGATIVE); KETONE, URINE AUTO NEGATIVE (NEGATIVE); LEUKOCYTE ESTERASE, URINE AUTO 3+ (NEGATIVE); MUCUS, URINE SMALL (NEGATIVE); NITRITE, URINE AUTO NEGATIVE (NEGATIVE); PROTEIN, URINE AUTO 1+ mg/dL (NEGATIVE); RBC, URINE AUTO 61 /HPF (0-3); SPECIFIC GRAVITY URINE AUTO 1.002 (1.002-1.035); SQUAMOUS EPITHELIAL CELL UR AU 0 /HPF (0-6); UROBILINOGEN, URINE AUTO 0.2 mg/dL (0.0-2.0); WBC, URINE AUTO TNTC /HPF (0-3)
[2020-03-27 10:22] LABS: BLOOD UREA NITROGEN 16 MG/DL (7-18); CALCIUM LEVEL 8.9 MG/DL (8.8-10.2); CARBON DIOXIDE LEVEL 23 MEQ/L (21-32); CHLORIDE LEVEL 103 MEQ/L (98-107); GLOMERULAR FILTRATION RATE > 60.0 (>32); GLUCOSE, FASTING 196 MG/DL (70-100); MAGNESIUM LEVEL 1.6 MG/DL (1.8-2.4); POTASSIUM SERUM 4.6 MEQ/L (3.5-5.1); SODIUM LEVEL 136 MEQ/L (136-145)
== END ==
PROVIDERS: ATTEND Internal Medicine
DX: I50.9 Heart failure, unspecified (principal)

== ENCOUNTER → 2020-04-03 | Outpatient (REF) ==
[2020-04-03 09:10] LABS: HEMATOCRIT 33.8 % (36.0-47.0); HEMOGLOBIN 10.8 g/dl (12.0-15.5); MEAN CORPUSCULAR HEMOGLOBIN 28.4 pg (27.0-33.0); MEAN CORPUSCULAR VOLUME 88.9 fl (80.0-96.0); PLATELET COUNT, AUTOMATED 413 10^3/uL (150-450); WHITE BLOOD COUNT 8.3 10^3/uL (4.0-10.0)
[2020-04-03 09:29] LABS: BLOOD UREA NITROGEN 12 MG/DL (7-18); CALCIUM LEVEL 9.1 MG/DL (8.8-10.2); CARBON DIOXIDE LEVEL 24 MEQ/L (21-32); CHLORIDE LEVEL 106 MEQ/L (98-107); CREATININE FOR GFR 0.62 MG/DL (0.55-1.30); GLOMERULAR FILTRATION RATE > 60.0 (>32); GLUCOSE, FASTING 129 MG/DL (70-100); MAGNESIUM LEVEL 1.8 MG/DL (1.8-2.4); POTASSIUM SERUM 4.6 MEQ/L (3.5-5.1); SODIUM LEVEL 136 MEQ/L (136-145)
== END ==
PROVIDERS: ATTEND Internal Medicine
DX: I50.9 Heart failure, unspecified (principal)